=== PATIENT | female | born 2005 | race Two or more races ===

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

== ENCOUNTER 2023-04-22 21:29 | Emergency (ER) | payer OTHER, MEDICAID, SELFPAY ==
--- NOTE | 2023-04-22 | ECG_ITS ---
Test Reason : ANXIETY Blood Pressure : / mmHG Vent. Rate : 100 BPM Atrial Rate : 100 BPM P-R Int : 136 ms QRS Dur : 080 ms QT Int : 340 ms P-R-T Axes : 049 039 042 degrees QTc Int : 438 ms Normal sinus rhythm Normal ECG When compared with ECG of 29-JUN-2022 09:34, Vent. rate has increased BY 38 BPM Referred By: Generic ED Physician Electronically Signed By:FRED GUERRA
[2023-04-22 21:41] VITALS: BP 153/86; PULSE 105; RESP 18; TEMP 37.6; O2SAT 100
--- NOTE | 2023-04-22 22:45 | ED_ITS ---
HPI - Anxiety General Chief Complaint: Anxiety Stated Complaint: Anxiety Time Seen by Provider: 04/22/23 22:45 Source: patient Mode of arrival: ambulatory Limitations: no limitations History of Present Illness HPI narrative: Patient with history of anxiety broke up with her boyfriend yesterday today while going to the bed feels very panicked anxious tearful denies any suicidal ideation depression has history of similar episodes in the past taking fluoxetine Related Data Home Medications Medication Instructions Recorded Confirmed albuterol sulfate 2.5 mg/3 mL 2.5 mg inhalation Q4H PRN 05/17/20 (0.083 %) solution for nebulization albuterol sulfate 90 mcg/actuation 2 puff inhalation Q4-6H PRN 05/17/20 aerosol inhaler (ProAir HFA) montelukast 5 mg chewable tablet 5 mg PO BEDTIME 05/17/20 (Singulair) Previous Rx's Medication Instructions Recorded acetaminophen 325 mg tablet 650 mg (2 x 325 mg) PO Q6H PRN 05/29/20 (Tylenol) fever or pain #14 tabs azithromycin 250 mg tablet See Rx Instructions PO .COMPLEX #6 05/29/20 tabs cyclobenzaprine 5 mg tablet 5 mg PO TID PRN muscle spasm #14 05/29/20 tabs ondansetron 4 mg disintegrating 4 mg PO Q8H PRN nausea and 03/30/22 tablet vomiting #7 tabs Allergies Allergy/AdvReac Type Severity Reaction Status Date / Time ENVIRONMENTAL Allergy Unknown RASH Uncoded 04/22/23 21:41 seasonal Allergy Unknown unknown Uncoded 04/22/23 21:41 Review of Systems Review of Systems: Yes all other systems are reviewed and are negative [facility] Past Medical History Medical History Asthma Social History Social History Alcohol intake: unknown Advance Directives: No Advance Directives Information Provided: Yes Gender identity: Female Physical Exam Vital Signs: Vital Signs: Last Vital Signs Temp 99.6 F 04/22/23 21:41 Pulse 105 H 04/22/23 21:41 Resp 18 04/22/23 21:41 BP 153/86 H 04/22/23 21:41 Pulse Ox 100 04/22/23 21:41 O2 Del Method Room Air 04/22/23 21:41 BMI result Body Mass Index 30.0 Appearance: Alert. Oriented X3. No acute distress. Neck: Normal inspection. Neck supple. CVS: Normal heart rate and rhythm. Pulses normal. Respiratory: No respiratory distress. Equal air entry bilateral, no wheezing/rales/rhonchi Abdomen: Soft and nontender. Bowel sounds are present, psych: Tearful denied any SI Neuro: Oriented X 3. Medications Administered Discontinued Medications Generic Name Dose Route Start Last Admin Trade Name Freq PRN Reason Stop Dose Admin Lorazepam 1 mg 04/22/23 22:52 04/22/23 23:09 Lorazepam 1 Mg Tablet PO 04/22/23 22:53 1 mg ONCE ONE Administration Medical Decision Making Medical Decision Making [facility] Narrative: Patient with acute anxiety has family support will give 1 tablet of Ativan and to follow-up with PCP Discharge Plan Discharge Clinical Impression: Acute anxiety Patient Disposition: Home, Self-Care Instructions: Anxiety (ED) Additional Instructions: Rest at home Continue your medications and follow up with your PCP Prescriptions: No Action azithromycin 250 mg tablet See Rx Instructions .ROUTE .COMPLEX Qty: 6 0RF Rx Instructions: take 500 mg today (day 1), then 250 mg for 4 days (days 2-5) acetaminophen [Tylenol] 325 mg tablet 650 mg PO Q6H PRN (Reason: fever or pain) Qty: 14 0RF cyclobenzaprine 5 mg tablet 5 mg PO TID PRN (Reason: muscle spasm) Qty: 14 0RF ondansetron 4 mg tablet,disintegrating 4 mg PO Q8H PRN (Reason: nausea and vomiting) Qty: 7 0RF Stand Alone Forms: Work/School Release Interventions: ED Discharge Assessment Last Done: 04/22/23 23:13 Discharge Date/Time: 04/22/23 23:13
--- OUTSIDE RECORDS SUMMARY | 2023-04-22 22:49 | XMS_ITS | Continuity of Care Document ---
Author Name Unknown Organization [facility] ter Address [address] [place] [address]- Care Team Providers Care Physician Scribe Name Role Phone Jeramie Sparks MD Primary Care Physicia n Encounter [facility] [place] Date(s): 09/17/19 - 09/17/[address] [address]- [facility] Attending Physician: Jeramie Sparks MD Allergies, Adverse Reactions, Alerts Substance Reaction Severity Status NKA Active Medications Beclomethasone 40 mcg HFA Inhaler Inhalation, 2 times a day, Maintenance, 01/28/13 15:48:49 Start Date: 01/28/13 Status: Ordered ProAir HFA 2 puffs, Inhalation, 4 times a day, 0 Refills, Maintenance Start Date: 01/28/13 Status: Ordered Singulair By Mouth, Daily before dinner, 0 Refills, Maintenance Start Date: 01/28/13 Status: Ordered Problem List Condition Effective Dates Status Health Status Inform ant Asthma(Confirmed) Active Obesity(Confirmed) Active
--- OUTSIDE RECORDS SUMMARY | 2023-04-22 22:49 | XMS_ITS | Continuity of Care Document ---
Author Name Unknown Organization [facility] ter Address [address] [place] [address]- Care Team Providers Care Corporate Financial Analyst Name Role Phone Jeramie Sparks MD Primary Care Physicia n [place] [facility] [place] - 09/18/[address] [address]- [facility] Attending Physician: Jeramie Sparks MD Allergies, Adverse [...]
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
[2023-04-22] MEDS: LORazepam 1 MG TABLET PO (23:09)
--- NOTE | 2023-04-22 23:14 | PC.NURSE ---
pt verbalizes no SI or HI, just feeling super anxious since stopping her Fluoxetine. Pt stopped medication because it was causing her to gain weight.
== END 2023-04-22 23:13 | disposition home or self-care (01) ==
PROVIDERS: Emergency Provider Internal Medicine; PCP Pediatrics
DX: F41.1 Generalized anxiety disorder (principal); F43.0 Acute stress reaction; Z79.899 Other long term (current) drug therapy
CPT/HCPCS: 93005; 99283

== ENCOUNTER 2023-08-10 17:09 | Emergency (ER) | payer OTHER, MEDICAID, SELFPAY ==
[2023-08-10 18:49] VITALS: BP 143/90; PULSE 59; RESP 18; TEMP 36.8; O2SAT 99; BMI 31.6
--- NOTE | 2023-08-10 18:49 | ED_ITS ---
HPI - General Adult General Chief complaint: Upper Respiratory Symptoms Stated complaint: dirrhea, dehydration Time Seen by Provider: 08/10/23 20:17 Source: patient and family (dad) Limitations: no limitations History of Present Illness HPI narrative: 17-year-old female who was a history of asthma, who presents for evaluation of nausea vomiting diarrhea. Patient states that she tested positive for COVID 2 days ago. She was started on Paxil over it. She has been having nausea vomiting and diarrhea during this time. She is however tolerating liquids at this time. She arrives afebrile. No sick contacts. She has been eating and drinking without difficulty prior to this. Patient has otherwise been feeling well. She denies possibility of . Related Data Home Medications Medication Instructions Recorded Confirmed albuterol sulfate 2.5 mg/3 mL 2.5 mg inhalation Q4H PRN 05/17/20 (0.083 %) solution for nebulization albuterol sulfate 90 mcg/actuation 2 puff inhalation Q4-6H PRN 05/17/20 aerosol inhaler (ProAir HFA) montelukast 5 mg chewable tablet 5 mg PO BEDTIME 05/17/20 (Singulair) Previous Rx's Medication Instructions Recorded acetaminophen 325 mg tablet 650 mg (2 x 325 mg) PO Q6H PRN 05/29/20 (Tylenol) fever or pain #14 tabs cyclobenzaprine 5 mg tablet 5 mg PO TID PRN muscle spasm #14 05/29/20 tabs ondansetron 4 mg disintegrating 4 mg PO Q8H PRN nausea and 03/30/22 tablet vomiting #7 tabs loperamide 2 mg capsule 2 mg PO Q6H PRN loose stool #20 08/10/23 (Anti-Diarrheal (loperamide)) caps ondansetron 4 mg disintegrating 4 mg PO Q8H PRN nausea and 08/10/23 tablet vomiting #12 tabs Allergies Allergy/AdvReac Type Severity Reaction Status Date / Time ENVIRONMENTAL Allergy Unknown RASH Uncoded 08/10/23 18:53 seasonal Allergy Unknown unknown Uncoded 08/10/23 18:53 Review of Systems 2 Constitutional: Constitutional: Reports body ache(s) and Reports chills ENT: Reports nasal congestion, Denies sinus pain and Denies sore throat Respiratory: Respiratory: Reports cough Gastrointestinal: Gastrointestinal: Denies constipation, Reports diarrhea, Reports nausea and Reports vomiting Genitourinary: Genitourinary: Denies urinary urgency [facility] Past Medical History Medical History Asthma Social History Social History Alcohol intake: unknown Advance Directives: No Advance Directives Information Provided: No Gender identity: Female Physical Exam ED Vital Signs: Vital Signs - 24 hr 08/10/23 18:49 Temperature 98.2 F Pulse Rate 59 Respiratory Rate 18 Blood Pressure 143/90 H Pulse Oximetry 99 Oxygen Delivery Method Room Air BMI result Body Mass Index 31.6 Const General: alert and awake HENMT Other: Oropharynx is moist. Nares are patent without any discharge. Resp Auscultation: clear to auscultation bilaterally GI Other: Abdomen is soft without tenderness. No CVAT. Extrem Other: No calf tenderness or pedal edema Course Course Course Narrative: This is a rapid medical exam: Additional HPI, ROS, PE not included below will be deferred to primary provider. Patient is a 17-year-old female presenting to the ED with complaint of nausea, vomiting and diarrhea for 2 days. Tested positive for Covid on 08/08 and is currently being treated with Paxlovid. Has been able to tolerate PO fluids today. Reports feeling lightheaded with standing. Plan: swab flu influenza, basic labs, UA, EKG Reevaluation(s) Reevaluation #1: Patient with significant improvement after IV fluids and antiemetics. She feels comfortable with discharge plan home. Reviewed all discharge instructions. No further questions at this time. Time: 21:56 Medications Administered Discontinued Medications Generic Name Dose Route Start Last Admin Trade Name Freq PRN Reason Stop Dose Admin Sodium Chloride 1,000 mls @ 999 mls/hr 08/10/23 20:30 08/10/23 21:05 Ns IV 08/10/23 21:30 999 mls/hr .Q1H1M JONELLE Administration Ondansetron HCl 4 mg 08/10/23 20:25 08/10/23 20:34 Ondansetron Hcl 4 Mg/2 Ml Vial IVPUSH 08/10/23 20:26 4 mg ONCE ONE Administration Medical Decision Making Medical Decision Making MDM Narrative: 17-year-old female who has a history of asthma, recent diagnosis of COVID, currently on Flovent presenting with nausea vomiting and diarrhea. Symptoms mildly improving, tolerating some liquids however still feels weak. IV fluids. Reviewed all labs, no acute process. Differential Diagnosis Differential Diagnoses: The differential diagnosis associated with the presentation includes COVID-19 Medication reaction Dehydration Metabolic abnormality Lab Data MDM Lab Attestation statement: I reviewed the patient's lab results. 08/10/23 19:23 08/10/23 19:23 Labs: Lab Results 08/10/23 Range/Units 19:23 WBC 6.9 (4.8-10.8) X10*3/uL RBC 4.69 (4.20-5.50) X10*6/uL Hgb 12.2 (12.0-16.0) g/dl Hct 38.2 (37.0-47.0) % MCV 81.4 (80.0-98.0) fL MCH 26.0 L (27.0-33.0) pg MCHC 31.9 (31.0-35.0) g/dl RDW 13.6 (11.0-16.0) % Plt Count 204 (160-400) X10*3/uL MPV 11.5 (9.4-12.3) fL Immature Gran % (Auto) 0.3 (0.0-0.4) % Neut % (Auto) 63.9 (45-73) % Lymph % (Auto) 26.1 (20-40) % [place] % (Auto) 8.1 (2-11) % Eos % (Auto) 1.5 (0-4) % Baso % (Auto) 0.1 (0-2) % Lymph # (Auto) 1.8 (1.2-4.9) X10*3/uL [place] # (Auto) 0.6 (0.1-1.2) X10*3/uL Eos # (Auto) 0.1 (0.0-0.4) X10*3/uL Baso # (Auto) 0.0 (0.0-0.2) X10*3/uL Abs Immat Gran (auto) 0.02 (0.00-0.03) X10*3/uL Absolute Neuts (auto) 4.4 (2.0-8.3) x10*3/uL Absolute Nucleated RBC 0.000 (0.0-0.012) X10*3/uL Nucleated RBC % (auto) 0.0 (0.0-0.2) /100WBC Sodium 139 (135-145) mmol/L Potassium 4.0 (3.3-5.1) mmol/L Chloride 105 (96-108) mmol/L Carbon Dioxide 26 (22-29) mmol/L Anion Gap 12 (12-20) BUN 12 (9-16) mg/dL Creatinine 0.76 (0.5-1.4) mg/dL Estim Creat Clear Calc 129.0 Estimated GFR > 60 Random Glucose 99 (60-115) mg/dL Calcium 9.2 (8.4-10.2) mg/dL Total Bilirubin 0.2 (0.0-1.0) mg/dL AST 17 (5-31) U/L ALT 17 (0-31) U/L Alkaline Phosphatase 66 (39-117) U/L Total Protein 7.3 (6.5-8.0) g/dL Albumin 4.2 (3.5-5.0) g/dL Influenza Type A (WILLY) Negative (Negative) Influenza Type B (WILLY) Negative (Negative) Influenza A & B Note See Note Discharge Plan Discharge Clinical Impression: Nausea & vomiting Qualifiers: Vomiting type: unspecified Qualified Code(s): R11.2 - Nausea with vomiting, unspecified Patient Disposition: Home, Self-Care Instructions: Acute Nausea and Vomiting (ED) Additional Instructions: Zofran as directed for nausea. Loperamide as directed for diarrhea. Clear liquids. [place] diet. Gradually advanced. Follow-up with your primary care provider. Call this week to schedule a follow- up appointment. Return to the emergency department if you have any worsening of symptoms, or any concerns. Get well soon! Prescriptions: New ondansetron 4 mg tablet,disintegrating 4 mg PO Q8H PRN (Reason: nausea and vomiting) Qty: 12 0RF loperamide [Anti-Diarrheal (loperamide)] 2 mg capsule 2 mg PO Q6H PRN (Reason: loose stool) Qty: 20 0RF No Action acetaminophen [Tylenol] 325 mg tablet 650 mg PO Q6H PRN (Reason: fever or pain) Qty: 14 0RF cyclobenzaprine 5 mg tablet 5 mg PO TID PRN (Reason: muscle spasm) Qty: 14 0RF ondansetron 4 mg tablet,disintegrating 4 mg PO Q8H PRN (Reason: nausea and vomiting) Qty: 7 0RF Stand Alone Forms: Work/School Release
--- NOTE | 2023-08-10 18:52 | ECG_ITS ---
Test Reason : SOB Blood Pressure : / mmHG Vent. Rate : 060 BPM Atrial Rate : 060 BPM P-R Int : 132 ms QRS Dur : 086 ms QT Int : 402 ms P-R-T Axes : 071 063 038 degrees QTc Int : 402 ms Normal sinus rhythm Normal ECG When compared with ECG of 22-APR-2023 21:47, Vent. rate has decreased BY 40 BPM Referred By: Bernadine Diaz Electronically Signed By:ELDON BERNAL
[2023-08-10 19:27] LABS: MANUAL DIFF FLAG NO
[2023-08-10 19:47] LABS: Alanine Aminotransferase 17 U/L (0-31); Albumin Level 4.2 g/dL (3.5-5.0); Alkaline Phosphatase 66 U/L (39-117); Anion Gap 12 (12-20); Aspartate Amino Transferase 17 U/L (5-31); Basophils Percent Auto 0.1 % (0-2); Bilirubin Total 0.2 mg/dL (0.0-1.0); Blood Urea Nitrogen 12 mg/dL (9-16); Calcium 9.2 mg/dL (8.4-10.2); Carbon Dioxide 26 mmol/L (22-29); Chloride 105 mmol/L (96-108); Eosinophils Absolute Auto 0.1 X10*3/uL (0.0-0.4); Eosinophils Percent Auto 1.5 % (0-4); Estimated Glomerular Filt Rate > 60; Glucose Random 99 mg/dL (60-115); Hematocrit 38.2 % (37.0-47.0); Hemoglobin 12.2 g/dl (12.0-16.0); Imm Gran Abs Auto 0.02 X10*3/uL (0.00-0.03); Imm Gran Pct Auto 0.3 % (0.0-0.4); Lymphocytes Absolute Auto 1.8 X10*3/uL (1.2-4.9); Lymphocytes Percent Auto 26.1 % (20-40); Mean Corpuscular HGB Conc 31.9 g/dl (31.0-35.0); Mean Corpuscular Volume 81.4 fL (80.0-98.0); Mean Platelet Volume 11.5 fL (9.4-12.3); Monocytes Absolute Auto 0.6 X10*3/uL (0.1-1.2); Monocytes Percent Auto 8.1 % (2-11); Neutrophils Absolute Auto 4.4 x10*3/uL (2.0-8.3); Neutrophils Percent Auto 63.9 % (45-73); Platelet Count 204 X10*3/uL (160-400); Red Blood Count 4.69 X10*6/uL (4.20-5.50); Red Cell Distribution Width 13.6 % (11.0-16.0); Sodium 139 mmol/L (135-145); Total Protein 7.3 g/dL (6.5-8.0); White Blood Count 6.9 X10*3/uL (4.8-10.8)
[2023-08-10 19:51] LABS: IDNOW Serial# BCCEAD1C; Influenza A Negative (Negative); Influenza B2 Negative (Negative)
[2023-08-10] MEDS: ondansetron HCL 4 MG/2 ML VIAL IVPUSH (20:34)
[2023-08-10] MEDS: 0.9 % Sodium Chloride 1,000 ML 999 ML IV (21:05)
== END 2023-08-10 22:32 | disposition home or self-care (01) ==
PROVIDERS: Registered Nurse Emergency; Emergency Provider Student in an Organized Health Care Education/Training Program; PCP Pediatrics
DX: R11.2 Nausea with vomiting, unspecified (principal); R19.7 Diarrhea, unspecified
CPT/HCPCS: 80053; 85025; 87502; 93005; 96361; 96374; 99283; 99284; J2405

== ENCOUNTER → 2023-08-10 18:52 | Outpatient (BNV) | payer OTHER, MEDICAID, SELFPAY | PROVIDERS: Emergency Provider Student in an Organized Health Care Education/Training Program; PCP Pediatrics; Visit Provider Internal Medicine | DX: R06.02 Shortness of breath (principal) | CPT/HCPCS: 93010 ==

== ENCOUNTER 2023-11-15 09:48 | Outpatient (AMB) | payer OTHER, MEDICAID, SELFPAY ==
--- NOTE | 2023-11-15 09:49 | A.OFFVIS_ITS ---
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 Present Allergies ENVIRONMENTAL Allergy (Unknown, Uncoded 08/10/23 18:53) RASH seasonal Allergy (Unknown, Uncoded 08/10/23 18:53) unknown Medication List - Last Reconciled 11/15/23 by Virginie Diaz CNM acetaminophen (Tylenol) 650 mg (2 x 325 mg) PO Q6H PRN albuterol sulfate 90 mcg/actuation (ProAir HFA) 2 puffs inhalation Q4-6H PRN albuterol sulfate 2.5 mg inhalation Q4H PRN cyclobenzaprine 5 mg PO TID PRN loperamide (Anti-Diarrheal (loperamide)) 2 mg PO Q6H PRN montelukast (Singulair) 5 mg PO BEDTIME Is last menstrual period known: Yes Last menstrual period: 10/16/23 Do you need a note to return to daycare/school/sports/work: No HPI dysmenorrhea/referral HPI Details Patient is here because she is getting painful cramps with her. But she is always gotten all her life and also she gets painful cramps the few days before. She also had unprotected sex and wants a test and it was done at the beginning and it is negative. According to her jamal she thinks she is supposed to get he period In the next couple of days. Patient is in school at (either [employer] or at [employer]) but plans to transfer to [employer] for nursing. 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 She would not want to get at this time. She usually intends to use condoms and then when after the fact she realizes she has not she is upset with herself and ?over thinks why she did not. Currently she is endeavoring to avoid unsafe situations. Her last unprotected sex was Sunday. [facility] Medical History Asthma Social History (Updated 11/15/23 @ 09:57 by Avel Suggs CMA) Alcohol intake: never Patient Tobacco Use Status: Never used Tobacco Gender identity: Female Female Reproductive History Menstrual Age of Menarche: 11 Duration of menses: 3-5 days Date of last menstrual period: 10/16/23 control method: none Total pregnancies: 0 Full term: 0 History of abnormal pap smear: No (no previous pap) Physical Exam Vital Signs: Last Vital Signs BP 138/80 11/15/23 09:53 BMI result Body Mass Index 35.4 Other: Normal external exam. Vagina pink and moist cervix is nulliparous pink with fairly normal appearing scant discharge cervix is closed uterus is small anteverted mobile nontender patient has good tone with Kegel. External Female Exam: normal external appearance Speculum Exam - Vagina: normal appearance of the vagina and normal vaginal discharge Speculum Exam - Cervix: normal appearance of the cervix Bimanual exam- vagina & uterus: normal bimanual exam, uterine size normal, consistency normal, uterine mobility normal, uterine shape normal and non-tender Bimanual Exam- Adnexa, other: normal adnexae, no masses and No adnexal tenderness Results AMB Test Urine AMB Test Urine Negative Last Edit by Avel Suggs CMA on 11/15/23 10:19 Results Reviewed Results Reviewed: Laboratory Last Values [facility] Negative 11/15/23 10:18 Assessment & Plan Assessment & Plan (1) Dysmenorrhea: Code(s): N94.6 - Dysmenorrhea, unspecified (2) Vaginal discharge: Code(s): N89.8 - Other specified noninflammatory disorders of vagina (3) control counseling: Code(s): Z30.09 - Encounter for other general counseling and advice on contraception (4) Health education/counseling: Code(s): Z71.9 - Counseling, unspecified Plan Patient is here because she is getting painful cramps with her. But she is always gotten all her life and also she gets painful cramps the few days before. She also had unprotected sex and wants a test and it was done at the beginning and it is negative. According to her jamal she thinks she is supposed to get he period In the next couple of days. Patient is in school at (either [employer] or at [employer]) but plans to transfer to [employer] for nursing. 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 She would not want to get at this time. She usually intends to use condoms and then when after the fact she realizes she has not she is upset with herself and ?over thinks why she did not. Currently she is endeavoring to avoid unsafe situations. Her last unprotected sex was Sunday. Full teaching was done about what her options are pre and post exam during the exam testing was done for gonorrhea chlamydia trichomoniasis Gardnerella and Amara. I also showed the patient her cervix which appeared normal and healthy in nulliparous. Bimanual exam was unremarkable. Full teaching about all available methods of control was done but emphasizing safer sex and what she will do if she does not get her. When she expects I recommend she repeat test periodically until her period comes I offered her in particular control pills patches NuvaRing Depo- Provera or Nexplanon or Kyleena IUD all of which would need to be started at the beginning of her. If she were to start pills or their analogs I would recommend she start them and day 2 or 3 of her period The latest. -I reviewed with the patient, all of the currently common used methods of control that are available. We reviewed how they work in the body, how they are taken, common side effects, uncommon side effects, precautions, and contraindications. -Discussed also factors that influence their effectiveness and use, and womens satisfaction with the method. -Discussed how each are used, and drawbacks of each method as well. -Methods covered included: condoms, control pills, control patches, control rings, Depo-Provera, Nexplanon, Mirena and Kyleena IUDs, and ParaGard IUDs. All of the above methods were covered in great detail including their side effect profiles and common experiences that women have and ways to mitigate against the negative experiences including attention to diet and exercise patient's with bleeding challenges that may occur her and efforts to time the initiation of the method to this start of the menstrual period. Also discussed with the patient what she would do if she gets and who she would trust and talk to. For now the patient decided to leave armed with the information and she is going to continue to use ibuprofen and use it as she needs it for her dysmenorrhea and also maybe consider heating pads as well. We can see her again p.r.n. 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 She declined blood work for STIs. She was given information about the portal so she can sign up for. Orders: Orders CT NG by PCR Today Z01.419 - Encounter for gynecological examination (general) (routine) without abnormal findings Bacterial Vaginosis Panel Today Z20.2 - Contact with and (suspected) exposure to infections with a predominantly sexual mode of transmission AMB HCG Urine Test Today Z32.02 - Encounter for test, result negative Coding Level of Care Code New Pt Level 3 (84630) Diagnoses Dysmenorrhea N94.6 Vaginal discharge N89.8 control counseling Z30.09 Health education/counseling Z71.9
[2023-11-15 09:53] VITALS: BP 138/80; BMI 35.4
== END 2023-11-15 10:55 | disposition home or self-care (01) ==
LOC: HO.HWSM 09:48
PROVIDERS: PCP Pediatrics; Visit Provider Advanced Practice Midwife
DX: N94.6 Dysmenorrhea, unspecified (principal); N89.8 Other specified noninflammatory disorders of vagina; Z30.09 Encounter for other general counseling and advice on contraception; Z71.9 Counseling, unspecified; Z32.02 Encounter for pregnancy test, result negative
CPT/HCPCS: 99203

== ENCOUNTER 2023-11-15 09:48 | Outpatient (REF) | payer OTHER, SELFPAY ==
[2023-11-16 12:16] LABS: CT PCR NOT DETECTED (Not Detect.); NG PCR NOT DETECTED (Not Detect.)
[2023-11-16 14:00] LABS: BV Int Neg Control Negative (Negative); BV Int Pos Control Positive (Positive)
== END 2023-11-15 09:49 | disposition home or self-care (01) ==
LOC: HO.LAB 09:48
PROVIDERS: PCP Pediatrics; Visit Provider Advanced Practice Midwife
DX: Z30.09 Encounter for other general counseling and advice on contraception (principal); N94.6 Dysmenorrhea, unspecified; N89.8 Other specified noninflammatory disorders of vagina; Z20.2 Contact with and (suspected) exposure to infections with a predominantly sexual mode of transmission
CPT/HCPCS: 0353U; 81025; 87480; 87510; 87660

== ENCOUNTER 2024-03-16 19:16 | Emergency (ER) | payer OTHER, SELFPAY ==
--- NOTE | ~2024-03-16 | CT_ITS ---
EXAMINATION: CT ABDOMEN AND PELVIS WITHOUT CONTRAST CLINICAL INFORMATION: Left flank pain COMPARISON: KUB of 11/02/2018 abdominal ultrasound of 12/26/2016 TECHNIQUE: Multidetector volumetric imaging was performed from the superior aspect of the liver through the pubic symphysis. Sagittal and coronal reformatted images were obtained on the technologist's workstation. This CT examination was performed using dose optimization techniques as appropriate, variously including the following: *Automated exposure control *Adjustment of mA and/or kV according to patient size (this includes techniques or standardized protocols for targeted exams where dose is matched to indication/reason for exam; i.e. extremities or head) *Use of iterative reconstruction technique DLP: 870 mGy-cm FINDINGS: LUNG BASES: The visualized lung bases are unremarkable. LIVER, GALLBLADDER, AND BILIARY TREE: The liver is normal in size, shape, and attenuation. No focal hepatic lesion or biliary ductal dilatation is present. The gallbladder is unremarkable with no evidence of radiopaque gallstones, gallbladder wall thickening, or obvious pericholecystic inflammatory changes. PANCREAS: Unremarkable. SPLEEN: Unremarkable. ADRENAL GLANDS: Unremarkable. KIDNEYS AND URETERS: The kidneys are normal in size, shape, and attenuation. No hydronephrosis, hydroureter, or calculi seen. No perinephric stranding. BLADDER: Underdistended and therefore not optimally evaluated. No radiopaque calculi. GASTROINTESTINAL TRACT: The stomach is partially distended and grossly unremarkable. No abnormal small bowel dilatation. Colon is normal in caliber. No evidence of colonic wall thickening or pericolonic fat stranding. The appendix is slightly plump in appearance however grossly unremarkable. Moderate stool burden in the colon. PERITONEAL CAVITY: No evidence of free intraperitoneal air or fluid. ABDOMINAL WALL: No significant hernia is appreciated. LYMPH NODES: No evidence of pathologically enlarged lymph nodes. VASCULAR: The aortoiliac vessels are normal in caliber. PELVIC VISCERA: The uterus is deviated to the right. Unremarkable CT appearance of the uterus and ovaries/adnexa. OSSEOUS STRUCTURES: Unremarkable. CT/CT abdomen pelvis wo IV con IMPRESSION: No acute abnormality. No evidence of radiopaque urinary tract calculi, hydroureteronephrosis or perinephric stranding. Moderate stool burden in the colon. Fleischner guidelines were followed.
[2024-03-16 20:22] VITALS: BP 138/75; PULSE 65; RESP 18; TEMP 37.2; O2SAT 99; BMI 37.2
--- NOTE | 2024-03-16 20:29 | ED_ITS ---
HPI - General Adult General Chief complaint: Abdominal Pain Stated complaint: R side pain, worse after eating, lightheaded Time Seen by Provider: 03/16/24 22:21 Related Data Home Medications ?Medication ?Instructions ?Recorded ?Confirmed albuterol sulfate 2.5 mg/3 mL 2.5 mg inhalation Q4H PRN 05/17/20 11/15/23 (0.083 %) solution for nebulization albuterol sulfate 90 mcg/actuation 2 puff inhalation Q4-6H PRN 05/17/20 11/15/23 aerosol inhaler (ProAir HFA) montelukast 5 mg chewable tablet 5 mg PO BEDTIME 05/17/20 11/15/23 (Singulair) Previous Rx's ?Medication ?Instructions ?Recorded acetaminophen 325 mg tablet 650 mg (2 x 325 mg) PO Q6H PRN 05/29/20 (Tylenol) fever or pain #14 tabs cyclobenzaprine 5 mg tablet 5 mg PO TID PRN muscle spasm #14 05/29/20 tabs loperamide 2 mg capsule 2 mg PO Q6H PRN loose stool #20 08/10/23 (Anti-Diarrheal (loperamide)) caps miconazole nitrate 2 % vaginal 1 appful vaginal BEDTIME 7 days 11/19/23 cream (Monistat 7) #45 grams pantoprazole 40 mg tablet,delayed 40 mg PO DAILY #14 tabs 03/17/24 release (Protonix) Allergies Allergy/AdvReac Type Severity Reaction Status Date / Time ENVIRONMENTAL Allergy Unknown RASH Uncoded 03/16/24 20:26 seasonal Allergy Unknown unknown Uncoded 08/10/23 18:53 [facility] Past Medical History Medical History Asthma Social History Social History Alcohol intake: never Patient Tobacco Use Status: Never used Tobacco Advance Directives: No Advance Directives Information Provided: No Do you have a plan to hurt others: No Plan Gender identity: Female Physical Exam ED Vital Signs: Vital Signs - 24 hr 03/16/24 20:22 03/16/24 21:17 Temperature 99 F 98.9 F Pulse Rate 65 51 Respiratory Rate 18 16 Blood Pressure 138/75 125/64 Pulse Oximetry 99 98 Oxygen Delivery Method Room Air Room Air BMI result Body Mass Index 37.2 Course Course Course Narrative: RME: Done by GRAYSON Cruz. 18 yold female presents to the Ed for epigastric and lUQ abdominal pain. Patient states every time she eats she has acid burning sensation. Patient denies any right upper quadrant pain or lower abdominal pain. Patient denies any dysuria, hematuria, fever, chills, flank pain. Exam positive for epigastric and left upper quadrant tenderness on palpation. Labs ordered. Medications Administered Discontinued Medications Generic Name Dose Route Start Last Admin Trade Name Freq PRN Reason Stop Dose Admin Sodium Chloride 1,000 mls @ 999 mls/hr 03/16/24 22:45 03/17/24 00:24 Ns IV 03/16/24 23:45 Infused .Q1H1M JONELLE Infusion Ketorolac Tromethamine 30 mg 03/16/24 22:40 03/16/24 23:28 Ketorolac Tromethamine 30 Mg/Ml Vial IVPUSH 03/16/24 22:41 30 mg ONCE ONE Administration Medical Decision Making Lab Data 03/16/24 21:00 03/16/24 21:00 Labs: Lab Results 03/16/24 03/16/24 Range/Units 21:00 21:16 WBC 7.3 (4.8-10.8) X10*3/uL RBC 4.48 (4.20-5.50) X10*6/uL Hgb 11.6 L (12.0-16.0) g/dl Hct 35.7 L (37.0-47.0) % MCV 79.7 L (80.0-98.0) fL MCH 25.9 L (27.0-33.0) pg MCHC 32.5 (31.0-35.0) g/dl RDW 14.4 (11.0-16.0) % Plt Count 209 (160-400) X10*3/uL MPV 12.1 (9.4-12.3) fL Immature Gran % (Auto) 0.1 (0.0-0.4) % Neut % (Auto) 56.7 (45-73) % Lymph % (Auto) 31.5 (20-40) % [place] % (Auto) 9.2 (2-11) % Eos % (Auto) 2.1 (0-4) % Baso % (Auto) 0.4 (0-2) % Lymph # (Auto) 2.3 (1.2-4.9) X10*3/uL [place] # (Auto) 0.7 (0.1-1.2) X10*3/uL Eos # (Auto) 0.2 (0.0-0.4) X10*3/uL Baso # (Auto) 0.0 (0.0-0.2) X10*3/uL Abs Immat Gran (auto) 0.01 (0.00-0.03) X10*3/uL Absolute Neuts (auto) 4.1 (2.0-8.3) x10*3/uL Absolute Nucleated RBC 0.000 (0.0-0.012) X10*3/uL Nucleated RBC % (auto) 0.0 (0.0-0.2) /100WBC Sodium 141 (135-145) mmol/L Potassium 3.7 (3.3-5.1) mmol/L Chloride 108 (96-108) mmol/L Carbon Dioxide 23 (22-29) mmol/L Anion Gap 14 (12-20) BUN 13 (9-16) mg/dL Creatinine 0.84 (0.5-1.4) mg/dL Estim Creat Clear Calc 126.1 Estimated GFR > 60 Random Glucose 135 H (60-115) mg/dL Calcium 9.1 (8.4-10.2) mg/dL Total Bilirubin 0.3 (0.0-1.0) mg/dL AST 17 (5-31) U/L ALT 12 (0-31) U/L Alkaline Phosphatase 63 (39-117) U/L Total Protein 7.3 (6.5-8.0) g/dL Albumin 4.1 (3.5-5.0) g/dL Lipase 23 (8-78) U/L Beta HCG, Quant < 2 mIU/mL Urine Color Yellow Urine Appearance Clear Urine pH 6.0 (5.0-9.0) Ur Specific Hensley >= 1.030 H (1.005-1.025) Urine Protein Trace (Neg-Trace) mg/dL Urine Glucose (UA) Negative (Negative) mg/dL Urine Ketones Trace (Negative) mg/dL Urine Blood Large (3+) H (Negative) Urine Nitrite Negative (Negative) Ur Leukocyte Esterase Small (1+) H (Negative) Urine RBC 0-2 (0-2) /HPF Urine WBC 6-10 H (0-5) /HPF Ur Squamous Epith Cells 6-10 (0-2) /HPF Urine Bacteria 1+ (None Seen) Hyaline Casts 0-2 (0-2) /LPF Urine Test NEGATIVE (NEGATIVE) Discharge Plan Discharge Clinical Impression: Abdominal pain Patient Disposition: Home, Self-Care Instructions: Abdominal Pain (ED) Prescriptions: New pantoprazole [Protonix] 40 mg tablet,delayed release (DR/EC) 40 mg PO DAILY Qty: 14 0RF No Action miconazole nitrate [Monistat 7] 2 % cream 1 appful vaginal BEDTIME 7 Days Qty: 45 0RF acetaminophen [Tylenol] 325 mg tablet 650 mg PO Q6H PRN (Reason: fever or pain) Qty: 14 0RF cyclobenzaprine 5 mg tablet 5 mg PO TID PRN (Reason: muscle spasm) Qty: 14 0RF loperamide [Anti-Diarrheal (loperamide)] 2 mg capsule 2 mg PO Q6H PRN (Reason: loose stool) Qty: 20 0RF albuterol sulfate 2.5 mg /3 mL (0.083 %) solution for nebulization 2.5 mg inhalation Q4H PRN albuterol sulfate [ProAir HFA] 90 mcg/actuation HFA aerosol inhaler 2 puff inhalation Q4-6H PRN montelukast [Singulair] 5 mg tablet,chewable 5 mg PO BEDTIME Referrals: Susi Fuentes MD [Primary Care Provider] - 03/19/24 Print Language: Belgian
[2024-03-16 21:05] LABS: MANUAL DIFF FLAG NO
[2024-03-16 21:12] LABS: Basophils Percent Auto 0.4 % (0-2); Eosinophils Absolute Auto 0.2 X10*3/uL (0.0-0.4); Eosinophils Percent Auto 2.1 % (0-4); Hematocrit 35.7 % (37.0-47.0); Hemoglobin 11.6 g/dl (12.0-16.0); Imm Gran Abs Auto 0.01 X10*3/uL (0.00-0.03); Imm Gran Pct Auto 0.1 % (0.0-0.4); Lymphocytes Absolute Auto 2.3 X10*3/uL (1.2-4.9); Lymphocytes Percent Auto 31.5 % (20-40); Mean Corpuscular HGB Conc 32.5 g/dl (31.0-35.0); Mean Corpuscular Hemoglobin 25.9 pg (27.0-33.0); Mean Corpuscular Volume 79.7 fL (80.0-98.0); Mean Platelet Volume 12.1 fL (9.4-12.3); Monocytes Absolute Auto 0.7 X10*3/uL (0.1-1.2); Monocytes Percent Auto 9.2 % (2-11); Neutrophils Absolute Auto 4.1 x10*3/uL (2.0-8.3); Neutrophils Percent Auto 56.7 % (45-73); Platelet Count 209 X10*3/uL (160-400); Red Blood Count 4.48 X10*6/uL (4.20-5.50); Red Cell Distribution Width 14.4 % (11.0-16.0); White Blood Count 7.3 X10*3/uL (4.8-10.8)
[2024-03-16 21:17] VITALS: BP 125/64; PULSE 51; RESP 16; TEMP 37.2; O2SAT 98
--- OUTSIDE RECORDS SUMMARY | 2024-03-16 21:34 | XMS_ITS | Continuity of Care Document ---
Author Organization [facility] ter Address [address] [place] [id number]- Care Team Providers Care Patron Attendant Name Role Phone Rounds Susi MATOS Primary Care Physician [phone] Encounter [facility] [place] Date(s): 08/10/23 - 08/10/[address] [address]- Discharge Disposition: A-D/C Walkout Attending Physician: Not on Staff, Attending MD Admitting Physician: Not on Staff, Admitting MD Referring Physician: Not on Staff, Referring [...] Date: 01/28/13 Status: Ordered Problem List Condition Confirmation Course Effective Dates Status Health St atus Informant Asthma Confirmed Active Obesity Confirmed Active Vital Signs Most recent to oldest [Reference Range]: 1 2 Weight 90.6 kg (08/10/23 3:37 PM) Oxygen Saturation [94-100 %] 99 % (08/10/23 3:37 PM) 98 % (08/10/23 3:37 PM) Pulse Rate [55-90 bpm] 76 bpm (08/10/23 3:37 PM) 95 bpm *H* (08/10/23 3:37 PM) Blood Pressure [90-138/55-84 mm Hg] 129/ 64mm Hg (08/10/23 3:37 PM) Respiratory Rate [16-30 br/min] 15 br/mi n *L* (12/29/23 3:37 PM) Temperature [96.8-100.4 DegF] 98.5 DegF (08/10/23 3:37 PM) Mode of Delivery (Oxygen) Room air (08/10/23 3:37 PM) Room air (08/10/23 3:37 PM) Blood pressure sites Arm, right (08/10/23 3:37 PM) Temperature Route Oral (08/10/23 3:37 PM) Dry Weight 90.6 kg (08/10/23 3:37 PM) Weight Obtained Via Standing scale (08/10/23 3:37 PM) Dry Weight Obtained Via Standing scale (08/10/23 3:37 PM) Weight Percentile Per Age 97.36 % 1 (08/10/23 3:37 PM) Weight ZScore 1.94 2 (08/10/23 3:37 PM) 1Result Comment: ^~:!Percentile Source -CDC/WHO 2Result Comment: ^~:!ZScore Source -CDC/WHO Patient Care team information Care Team Personnel Name: Susi Fuentes MD Position: [facility] General Pediatrics MD Member Role: PCP Address: Address: [address] [place] [address] [place] [address]- [place] Care Team Related Persons Name: TAYO TIMMONS Address: home [address] [address] Name: VALERIE MEADE Address: [address] [place] [address] Name: KIESHA AGUILAR Address: [address] [place] [address]
[2024-03-16 21:39] LABS: Alanine Aminotransferase 12 U/L (0-31); Albumin Level 4.1 g/dL (3.5-5.0); Alkaline Phosphatase 63 U/L (39-117); Anion Gap 14 (12-20); Aspartate Amino Transferase 17 U/L (5-31); Bilirubin Total 0.3 mg/dL (0.0-1.0); Blood Urea Nitrogen 13 mg/dL (9-16); Calcium 9.1 mg/dL (8.4-10.2); Carbon Dioxide 23 mmol/L (22-29); Chloride 108 mmol/L (96-108); Creatinine Clr Calc Pharmacy 126.1; Estimated Glomerular Filt Rate > 60; Glucose Random 135 mg/dL (60-115); HCG Quantitative < 2 mIU/mL; Lipase 23 U/L (8-78); Potassium 3.7 mmol/L (3.3-5.1); Sodium 141 mmol/L (135-145); Total Protein 7.3 g/dL (6.5-8.0)
[2024-03-16 21:39] LABS: Appearance Urine Clear; Color Urine Yellow; Glucose Urine UA Negative (Negative); Leukocyte Esterase Urine Small (1+) (Negative); Nitrite Urine Negative (Negative); Specific Gravity - Urine >= 1.030 (1.005-1.025); UMIC TRIGGER UACC YES; Urine Blood Large (3+) (Negative); Urine Ketones Trace mg/dL (Negative); Urine Protein Trace mg/dL (Neg-Trace)
[2024-03-16 21:42] LABS: UPreg QC Valid YES; Urine Pregnancy NEGATIVE (NEGATIVE)
[2024-03-16 22:09] LABS: Bacteria Urine 1+ (None Seen); Hyaline Casts Urine 0-2 /LPF (0-2); RBC Urine 0-2 /HPF (0-2); UACC Culture Trigger YES
[2024-03-16] MEDS: 0.9 % Sodium Chloride 1,000 ML 999 ML IV (23:28)
[2024-03-16] MEDS: Ketorolac Tromethamine 30 MG/ML VIAL IVPUSH (23:28)
--- NOTE | 2024-03-17 00:53 | ED_ITS ---
HPI - Abdominal Pain General Chief Complaint: Abdominal Pain Stated Complaint: R side pain, worse after eating, lightheaded Time Seen by Provider: 03/16/24 22:21 History of Present Illness HPI narrative: Patient is a 18-year-old female presents today with having left upper abdominal pain. Generalized malaise. Kind of wraps to the back. There is no fever no chills. There was no coughing or congestion upper respiratory symptoms. No diaphoresis. No history leg swelling. No history of blood clots. No coughing or congestion. Feels somewhat of a burning sensation. No change in bowel movement. No nausea no vomiting. Unable to sleep well because of the pain Related Data Home Medications ?Medication ?Instructions ?Recorded ?Confirmed albuterol sulfate 2.5 mg/3 mL 2.5 mg inhalation Q4H PRN 05/17/20 11/15/23 (0.083 %) solution for nebulization albuterol sulfate 90 mcg/actuation 2 puff inhalation Q4-6H PRN 05/17/20 11/15/23 aerosol inhaler (ProAir HFA) montelukast 5 mg chewable tablet 5 mg PO BEDTIME 05/17/20 11/15/23 (Singulair) Previous Rx's ?Medication ?Instructions ?Recorded acetaminophen 325 mg tablet 650 mg (2 x 325 mg) PO Q6H PRN 05/29/20 (Tylenol) fever or pain #14 tabs cyclobenzaprine 5 mg tablet 5 mg PO TID PRN muscle spasm #14 05/29/20 tabs loperamide 2 mg capsule 2 mg PO Q6H PRN loose stool #20 08/10/23 (Anti-Diarrheal (loperamide)) caps miconazole nitrate 2 % vaginal 1 appful vaginal BEDTIME 7 days 11/19/23 cream (Monistat 7) #45 grams pantoprazole 40 mg tablet,delayed 40 mg PO DAILY #14 tabs 03/17/24 release (Protonix) Allergies Allergy/AdvReac Type Severity Reaction Status Date / Time ENVIRONMENTAL Allergy Unknown RASH Uncoded 03/16/24 20:26 seasonal Allergy Unknown unknown Uncoded 08/10/23 18:53 Review of Systems Review of Systems Positive left upper quadrant pain Yes all other systems are reviewed and are negative PMFSH Past Medical History Attestation statement: The following information was validated with the patient. Medical History Asthma Social History Social History Alcohol intake: never Patient Tobacco Use Status: Never used Tobacco Advance Directives: No Advance Directives Information Provided: No Do you have a plan to hurt others: No Plan Gender identity: Female Physical Exam ED Vital Signs: Vital Signs - 24 hr 03/16/24 20:22 03/16/24 21:17 Temperature 99 F 98.9 F Pulse Rate 65 51 Respiratory Rate 18 16 Blood Pressure 138/75 125/64 Pulse Oximetry 99 98 Oxygen Delivery Method Room Air Room Air BMI result Body Mass Index 37.2 Appearance: Alert. Oriented X3. No acute distress. Eyes: Pupils equal, round and reactive to light. ENT: Pharynx normal. Neck: Normal inspection. Neck supple. No lymph nodes noted. No crepitus CVS: Normal heart rate and rhythm. Pulses normal. Normal S1 and S2 Respiratory: No respiratory distress. Breath sounds normal. No Wheezing. No rales Abdomen: Soft and nontender. No rigidity. No distention. good BS x4 Skin: Skin warm and dry. Normal skin color. Normal skin turgor. Extremities: No lower extremity edema. Neurovascular intact to all extremities. No Lacerations. No Rash Neuro: Oriented X 3. No motor deficit. No sensory deficit. Moving all extermities. No slurred speech Medical Decision Making Medical Decision Making MDM Narrative: Left upper quadrant abdominal pain. Patient's test was negative no related issue. Her white count was normal. Patient is electrolyte was normal. LFTs are normal no evidence for biliary disease. Lipase is normal no evidence for pancreatitis urine was negative for any gross infection. CT scan of the abdomen pelvis showed no acute evidence of kidney stone no diverticulitis no obstruction or abscess. Will discharge patient home close follow-up on an outpatient basis question gastritis will start patient on a PPI Differential Diagnosis Differential Diagnoses: The differential diagnosis associated with the presentation includes Gastritis, kidney stone, diverticulitis, obstruction, pneumonia Admission/Observation Consideration of admission/observation: Escalation of care including admission/observation considered Lab Data [facility] Lab Attestation statement: I reviewed the patient's lab results. 03/16/24 21:00 03/16/24 21:00 Labs: Lab Results 03/16/24 03/16/24 Range/Units 21:00 21:16 WBC 7.3 (4.8-10.8) X10*3/uL RBC 4.48 (4.20-5.50) X10*6/uL Hgb 11.6 L (12.0-16.0) g/dl Hct 35.7 L (37.0-47.0) % MCV 79.7 L (80.0-98.0) fL MCH 25.9 L (27.0-33.0) pg MCHC 32.5 (31.0-35.0) g/dl RDW 14.4 (11.0-16.0) % Plt Count 209 (160-400) X10*3/uL MPV 12.1 (9.4-12.3) fL Immature Gran % (Auto) 0.1 (0.0-0.4) % Neut % (Auto) 56.7 (45-73) % Lymph % (Auto) 31.5 (20-40) % [place] % (Auto) 9.2 (2-11) % Eos % (Auto) 2.1 (0-4) % Baso % (Auto) 0.4 (0-2) % Lymph # (Auto) 2.3 (1.2-4.9) X10*3/uL [place] # (Auto) 0.7 (0.1-1.2) X10*3/uL Eos # (Auto) 0.2 (0.0-0.4) X10*3/uL Baso # (Auto) 0.0 (0.0-0.2) X10*3/uL Abs Immat Gran (auto) 0.01 (0.00-0.03) X10*3/uL Absolute Neuts (auto) 4.1 (2.0-8.3) x10*3/uL Absolute Nucleated RBC 0.000 (0.0-0.012) X10*3/uL Nucleated RBC % (auto) 0.0 (0.0-0.2) /100WBC Sodium 141 (135-145) mmol/L Potassium 3.7 (3.3-5.1) mmol/L Chloride 108 (96-108) mmol/L Carbon Dioxide 23 (22-29) mmol/L Anion Gap 14 (12-20) BUN 13 (9-16) mg/dL Creatinine 0.84 (0.5-1.4) mg/dL Estim Creat Clear Calc 126.1 Estimated GFR > 60 Random Glucose 135 H (60-115) mg/dL Calcium 9.1 (8.4-10.2) mg/dL Total Bilirubin 0.3 (0.0-1.0) mg/dL AST 17 (5-31) U/L ALT 12 (0-31) U/L Alkaline Phosphatase 63 (39-117) U/L Total Protein 7.3 (6.5-8.0) g/dL Albumin 4.1 (3.5-5.0) g/dL Lipase 23 (8-78) U/L Beta HCG, Quant < 2 mIU/mL Urine Color Yellow Urine Appearance Clear Urine pH 6.0 (5.0-9.0) Ur Specific [place] >= 1.030 H (1.005-1.025) Urine Protein Trace (Neg-Trace) mg/dL Urine Glucose (UA) Negative (Negative) mg/dL Urine Ketones Trace (Negative) mg/dL Urine Blood Large (3+) H (Negative) Urine Nitrite Negative (Negative) Ur Leukocyte Esterase Small (1+) H (Negative) Urine RBC 0-2 (0-2) /HPF Urine WBC 6-10 H (0-5) /HPF Ur Squamous Epith Cells 6-10 (0-2) /HPF Urine Bacteria 1+ (None Seen) Hyaline Casts 0-2 (0-2) /LPF Urine Test NEGATIVE (NEGATIVE) Independent Interpretation I performed an independent interpretation of an: CT Scan (No acute finding) Radiology Impression Discussion of test interpretation with radiology: I have reviewed the radiologist's reading. Medications Administered Discontinued Medications Generic Name Dose Route Start Last Admin Trade Name Freq PRN Reason Stop Dose Admin Sodium Chloride 1,000 mls @ 999 mls/hr 03/16/24 22:45 03/17/24 00:24 Ns IV 03/16/24 23:45 Infused .Q1H1M JONELLE Infusion Ketorolac Tromethamine 30 mg 03/16/24 22:40 03/16/24 23:28 Ketorolac Tromethamine 30 Mg/Ml Vial IVPUSH 03/16/24 22:41 30 mg ONCE ONE Administration Discharge Plan Discharge Clinical Impression: Abdominal pain Patient Disposition: Home, Self-Care Instructions: Abdominal Pain (ED) Prescriptions: New pantoprazole [Protonix] 40 mg tablet,delayed release (DR/EC) 40 mg PO DAILY Qty: 14 0RF No Action miconazole nitrate [Monistat 7] 2 % cream 1 appful vaginal BEDTIME 7 Days Qty: 45 0RF acetaminophen [Tylenol] 325 mg tablet 650 mg PO Q6H PRN (Reason: fever or pain) Qty: 14 0RF cyclobenzaprine 5 mg tablet 5 mg PO TID PRN (Reason: muscle spasm) Qty: 14 0RF loperamide [Anti-Diarrheal (loperamide)] 2 mg capsule 2 mg PO Q6H PRN (Reason: loose stool) Qty: 20 0RF albuterol sulfate 2.5 mg /3 mL (0.083 %) solution for nebulization 2.5 mg inhalation Q4H PRN albuterol sulfate [ProAir HFA] 90 mcg/actuation HFA aerosol inhaler 2 puff inhalation Q4-6H PRN montelukast [Singulair] 5 mg tablet,chewable 5 mg PO BEDTIME Referrals: Susi Fuentes MD [Primary Care Provider] - 03/19/24 Print Language: Citizen [place]
[2024-03-17 01:00] VITALS: BP 140/81; PULSE 65; RESP 16; TEMP 36.9; O2SAT 99
[2024-03-17 01:10] VITALS: BP 140/81; PULSE 65; RESP 16; TEMP 36.9; O2SAT 99
== END 2024-03-17 01:10 | disposition home or self-care (01) ==
PROVIDERS: Physician Assistant; Emergency Provider Emergency Medicine Emergency Medical Services; PCP Pediatrics
DX: R10.31 Right lower quadrant pain (principal); R42 Dizziness and giddiness; R10.13 Epigastric pain; R10.2 Pelvic and perineal pain; Z79.899 Other long term (current) drug therapy
CPT/HCPCS: 36415; 74176; 80053; 81001; 81025; 83690; 84702; 85025; 87086; 96360; 96374; 99284; 99285; J1885

== ENCOUNTER 2024-07-26 22:52 | Emergency (ER) | payer OTHER, SELFPAY ==
--- NOTE | ~2024-07-26 | XR_ITS ---
EXAMINATION: XR CHEST CLINICAL INFORMATION: Cough and shortness of breath; question pneumonia. COMPARISON: None available. TECHNIQUE: Frontal view of the chest was obtained. FINDINGS: No significant abnormality is noted involving the heart, lungs, mediastinum, bony thorax or soft tissues. XR/XR chest 1V IMPRESSION: Unremarkable examination. Electronically signed by: Alexi Roa MD 07/27/2024 12:07 AM [facility]
[2024-07-26 22:58] VITALS: BP 129/86; PULSE 76; RESP 16; TEMP 36.9; O2SAT 100; BMI 37.3
[2024-07-27 00:06] LABS: Influenza A PCR NEGATIVE (Negative); Influenza B PCR NEGATIVE (Negative); Resp Syncy Virus RNA Qual PCR NEGATIVE (Negative); SARS COV2 PCR INHOUSE NEGATIVE (Negative)
--- NOTE | 2024-07-27 00:18 | ED.URI ---
HPI - URI/Sore Throat General Chief Complaint: Upper Respiratory Symptoms Stated Complaint: cough/lungs feel heavy/headache Time Seen by Provider: 07/27/24 00:09 Source: patient and family Mode of arrival: ambulatory Limitations: no limitations History of Present Illness ED Provider: DR. Valdez HPI Narrative: 18-year-old female history of bronchial asthma has upper respiratory symptoms for the past week presented with nonproductive coughing, shortness of breath, and wheezing. No sick contacts, no fever, no chills. Related Data Home Medications ?Medication ?Instructions ?Recorded ?Confirmed albuterol sulfate 2.5 mg/3 mL 2.5 mg inhalation Q4H PRN 05/17/20 11/15/23 (0.083 %) solution for nebulization albuterol sulfate 90 mcg/actuation 2 puff inhalation Q4-6H PRN 05/17/20 11/15/23 aerosol inhaler (ProAir HFA) montelukast 5 mg chewable tablet 5 mg PO BEDTIME 05/17/20 11/15/23 (Singulair) Previous Rx's ?Medication ?Instructions ?Recorded acetaminophen 325 mg tablet 650 mg (2 x 325 mg) PO Q6H PRN 05/29/20 (Tylenol) fever or pain #14 tabs cyclobenzaprine 5 mg tablet 5 mg PO TID PRN muscle spasm #14 05/29/20 tabs loperamide 2 mg capsule 2 mg PO Q6H PRN loose stool #20 08/10/23 (Anti-Diarrheal (loperamide)) caps miconazole nitrate 2 % vaginal 1 appful vaginal BEDTIME 7 days 11/19/23 cream (Monistat 7) #45 grams pantoprazole 40 mg tablet,delayed 40 mg PO DAILY #14 tabs 03/17/24 release (Protonix) albuterol sulfate 90 mcg/actuation 2 puff inhalation Q4-6H PRN 07/27/24 aerosol inhaler shortness of breath or wheezing #8.5 grams azithromycin 250 mg tablet See Rx Instructions PO .COMPLEX #6 07/27/24 (Zithromax Z-Gilbert) tabs guaifenesin 200 mg/5 mL oral liquid 200 mg (5 mL) PO Q4H PRN cough 07/27/24 #118 mL prednisone 20 mg tablet 20 mg PO BID #10 tabs 07/27/24 Allergies Allergy/AdvReac Type Severity Reaction Status Date / Time ENVIRONMENTAL Allergy Unknown RASH Uncoded 07/26/24 23:02 seasonal Allergy Unknown unknown Uncoded 07/26/24 23:02 Review of Systems Review of Systems: all other systems are reviewed and are negative Constitutional: Reports as per HPI and Reports no additional constitutional complaints Eyes: Reports as per HPI and Reports no additional eye complaints Reports system reviewed and no additional complaints, except as documented Cardiovascular: Reports as per HPI and Reports no additional cardiovascular complaints Respiratory: Reports as per HPI and Reports no additional respiratory complaints Gastrointestinal: Reports as per HPI and Reports no additional gastrointestinal complaints Genitourinary: Reports no additional female genitourinary complaints Musculoskeletal: Reports no additional musculoskeletal complaints Skin/Breast: Reports system reviewed and no additional complaints, except as docu Psychiatric: Reports no additional psychiatric complaints Endocrine: Reports no additional endocrine complaints Hematologic/Lymphatic: Reports no additional hematologic/lymphatic complaints Allergic/Immunologic: Reports no additional allergic/immunologic complaints Reports system reviewed and no additional complaints, except as documented and Reports Abnormal speech present [facility] Past Medical History Medical History Asthma Social History Social History Alcohol intake: never Patient Tobacco Use Status: Never used Tobacco Gender identity: Female Physical Exam Vital Signs: Vital Signs: Last Vital Signs Temp 98.5 F 07/26/24 22:58 Pulse 76 07/26/24 22:58 Resp 16 07/26/24 22:58 BP 129/86 07/26/24 22:58 Pulse Ox 100 07/26/24 22:58 O2 Del Method Room Air 07/26/24 22:58 BMI result Body Mass Index 37.3 Vital signs have been reviewed and appear to be correct. Blood pressure elevated. Heart rate normal. Respiratory rate normal. Temperature normal. Oxygen saturation normal. Appearance: Alert. Oriented X3. No acute distress. Head: Normal external exam. Normocephalic. Atraumatic. No [place] signs noted. No raccoon eyes noted Eyes: PERRLA. EOMI. Conjunctiva and sclera normal. Eyelids normal. ENT: TM's Normal. Pharynx normal. Uvula midline. Moist mucous membranes. No trismus noted. No drooling noted. No muffled voice noted. Neck: Normal inspection. Neck supple. FROM. No adenopathy. Thyroid Normal. No meningeal signs. No neck mass noted. CVS: Normal heart rate and rhythm. Heart sound normal. No murmurs noted. Pulses normal throughout. Respiratory: No respiratory distress. Painless inspiration. diffuse expiratory wheezing with prolonged expiration. No accessory muscle usage noted or decreased air movement noted. Abdomen: Soft and nontender. Bowel sounds normal in all 4 quadrants. No distention noted. No organomegaly noted. No visible injury noted. Back: No CVA tenderness. Full range of motion noted. Skin: Skin warm and dry. Normal skin color. Normal skin turgor. No rashes/lesions/lacerations noted. Extremities: No lower extremity edema. Extremities exhibit normal range of motion. Extremities nontender. Neuro: Oriented X 3. Cranial nerve exam: II-XII are grossly intact No motor deficit. No sensory deficit. Reflexes normal. Course Reevaluation(s) Reevaluation #1: 18-year-old female with history of asthma came in with upper respiratory symptoms, chest x-ray is showing no acute pneumonia or infiltrate a. Start the patient on prednisone x5 days, start on Z-Gilbert, and bronchodilator. Time: 00:21 Medical Decision Making Differential Diagnosis Differential Diagnoses: The differential diagnosis associated with the presentation includes ( Pneumonia, pneumothorax, pleural effusion, viral bronchitis, viral upper respiratory symptoms.) Admission/Observation Consideration of admission/observation: Escalation of care including admission/observation considered Lab Data MDM Lab Attestation statement: I reviewed the patient's lab results. Labs: Lab Results 07/26/24 Range/Units 23:16 Influenza Type A (PCR) NEGATIVE (Negative) Influenza Type B (PCR) NEGATIVE (Negative) RSV RNA Qual (PCR) NEGATIVE (Negative) SARS-CoV-2 RNA (RT-PCR) NEGATIVE (Negative) Independent Interpretation I performed an independent interpretation of an: Plain X-Ray ( Chest: Unremarkable examination.) Radiology Impression Discussion of test interpretation with radiology: I have reviewed the radiologist's reading. Chronic Conditions Patient?s care impacted by: Other ( Bronchial asthma.) Discharge Plan Discharge Clinical Impression: Bronchitis Patient Disposition: Home, Self-Care Instructions: Acute Bronchitis (ED) Prescriptions: New azithromycin [Zithromax Z-Gilbert] 250 mg tablet See Rx Instructions .ROUTE .COMPLEX Qty: 6 0RF Rx Instructions: For 250 mg dose pack: take 500 mg today (day 1), then 250 mg for 4 days (days 2-5) prednisone 20 mg tablet 20 mg PO BID Qty: 10 0RF albuterol sulfate 90 mcg/actuation HFA aerosol inhaler 2 puff inhalation Q4-6H PRN (Reason: shortness of breath or wheezing) Qty: 8.5 0RF guaifenesin 200 mg/5 mL liquid 200 mg PO Q4H PRN (Reason: cough) Qty: 118 0RF No Action miconazole nitrate [Monistat 7] 2 % cream 1 appful vaginal BEDTIME 7 Days Qty: 45 0RF acetaminophen [Tylenol] 325 mg tablet 650 mg PO Q6H PRN (Reason: fever or pain) Qty: 14 0RF cyclobenzaprine 5 mg tablet 5 mg PO TID PRN (Reason: muscle spasm) Qty: 14 0RF loperamide [Anti-Diarrheal (loperamide)] 2 mg capsule 2 mg PO Q6H PRN (Reason: loose stool) Qty: 20 0RF pantoprazole [Protonix] 40 mg tablet,delayed release (DR/EC) 40 mg PO DAILY Qty: 14 0RF albuterol sulfate 2.5 mg /3 mL (0.083 %) solution for nebulization 2.5 mg inhalation Q4H PRN albuterol sulfate [ProAir HFA] 90 mcg/actuation HFA aerosol inhaler 2 puff inhalation Q4-6H PRN montelukast [Singulair] 5 mg tablet,chewable 5 mg PO BEDTIME Referrals: Susi Fuentes MD [Primary Care Provider] - Print Language: [place]
[2024-07-27 00:58] VITALS: BP 121/64; PULSE 67; RESP 18; TEMP 36.9; O2SAT 98
[2024-07-27 03:49] VITALS: BP 118/64; PULSE 70; RESP 18; TEMP 37; O2SAT 98
== END 2024-07-27 01:43 | disposition home or self-care (01) ==
PROVIDERS: Emergency Medicine; Emergency Provider Emergency Medicine; PCP Pediatrics
DX: J40 Bronchitis, not specified as acute or chronic (principal); R05.9 Cough, unspecified; R51.9 Headache, unspecified; R06.02 Shortness of breath; Z03.818 Encounter for observation for suspected exposure to other biological agents ruled out
CPT/HCPCS: 0241U; 71045; 99283

== ENCOUNTER 2024-10-08 08:33 | Emergency (ER) | payer OTHER, SELFPAY ==
--- NOTE | ~2024-10-08 | XR_ITS ---
EXAMINATION: XR CHEST 2 VIEWS HISTORY: cough and fever COMPARISON: Comparison is made with the prior examination dated 07/26/2024. FINDINGS: PA and lateral views of the chest are submitted. There is a small patchy opacity at the left lung base, suspicious for early pneumonia. The right lung is clear. There is no pleural effusion, pneumothorax, or pulmonary vascular congestion. The heart is normal in size. The bones are intact. XR/XR chest 2V IMPRESSION: Findings suspicious for early pneumonia at the left lung base. Electronically signed by: Dereck Jara MD 10/08/2024 09:05 AM [facility]
[2024-10-08 08:45] VITALS: BP 117/79; PULSE 99; RESP 18; TEMP 38.1; O2SAT 99; BMI 37.8
--- NOTE | 2024-10-08 08:45 | ED.NEUROSD ---
HPI - Neuro Symptoms/Deficit General Chief Complaint: Upper Respiratory Symptoms Stated Complaint: Flu+, numbness L arm Time Seen by Provider: 10/08/24 11:33 Source: patient Mode of arrival: ambulatory Limitations: no limitations History of Present Illness ED Provider: ARRON MARCELINO PA-C HPI Narrative: 19 year old healthy female presents the ED today for evaluation of generalized weakness x3 days. Patient was seen at yesterday where she tested positive for the flu. She was started on tamiflu which she has been taking as prescribed. Reports continued chills, generalized weakness, and productive cough making it difficulty for her to sleep at night. Also endorses right ear pain described as a throbbing sensation. She has been able to tolerate PO intake at home. Denies documented fever, sore throat, chest pain, SOB, wheezing, N/V/D, abd pain, urinary sx. Related Data Home Medications ?Medication ?Instructions ?Recorded ?Confirmed albuterol sulfate 2.5 mg/3 mL 2.5 mg inhalation Q4H PRN 05/17/20 11/15/23 (0.083 %) solution for nebulization albuterol sulfate 90 mcg/actuation 2 puff inhalation Q4-6H PRN 05/17/20 11/15/23 aerosol inhaler (ProAir HFA) montelukast 5 mg chewable tablet 5 mg PO BEDTIME 05/17/20 11/15/23 (Singulair) Previous Rx's ?Medication ?Instructions ?Recorded acetaminophen 325 mg tablet 650 mg (2 x 325 mg) PO Q6H PRN 05/29/20 (Tylenol) fever or pain #14 tabs cyclobenzaprine 5 mg tablet 5 mg PO TID PRN muscle spasm #14 05/29/20 tabs loperamide 2 mg capsule 2 mg PO Q6H PRN loose stool #20 08/10/23 (Anti-Diarrheal (loperamide)) caps miconazole nitrate 2 % vaginal 1 appful vaginal BEDTIME 7 days 11/19/23 cream (Monistat 7) #45 grams pantoprazole 40 mg tablet,delayed 40 mg PO DAILY #14 tabs 03/17/24 release (Protonix) albuterol sulfate 90 mcg/actuation 2 puff inhalation Q4-6H PRN 07/27/24 aerosol inhaler shortness of breath or wheezing #8.5 grams azithromycin 250 mg tablet See Rx Instructions PO .COMPLEX #6 07/27/24 (Zithromax Z-Gilbert) tabs guaifenesin 200 mg/5 mL oral liquid 200 mg (5 mL) PO Q4H PRN cough 07/27/24 #118 mL prednisone 20 mg tablet 20 mg PO BID #10 tabs 07/27/24 acetaminophen 325 mg tablet 975 mg (3 x 325 mg) PO Q6H PRN 10/08/24 (Tylenol) fever or pain #20 tabs azithromycin 250 mg tablet See Rx Instructions PO .COMPLEX #6 10/08/24 tabs Allergies Allergy/AdvReac Type Severity Reaction Status Date / Time ENVIRONMENTAL Allergy Unknown RASH Uncoded 10/08/24 08:47 seasonal Allergy Unknown unknown Uncoded 10/08/24 08:47 Review of Systems Review of Systems: Constitutional: No fatigue, night sweats, weight changes, +fever, +chills ENT/Mouth: No ear pain, hearing loss, nasal congestion, sinus pain, rhinorrhea, sore throat Eyes: No eye pain, swelling, redness, vision changes, discharge Cardio: No chest pain, palpitations, [place], orthopnea, peripheral edema Pulm: No SOB, cough, sputum, wheezing, dyspnea, hemoptysis GI: No nausea, vomiting, hematemesis, abdominal pain, diarrhea, constipation, hematochezia, melena : No irregular bleeding, dysuria, frequency, urgency, hesitancy, hematuria, flank pain, urinary flow changes, urinary incontinence or retention MSK: No back pain, neck pain, joint pain, +myalgias Skin: No lesions, rashes Neuro: No weakness, numbness, paresthesias, LOC, dizziness, headache Psych: No anxiety/panic, depression, SI/HI, AH/VH All other systems reviewed and are negative. [facility], [facility] Past Medical History Attestation statement: The following information was validated with the patient. Source: old records reviewed and nursing notes reviewed Medical History Asthma Social History Social History Alcohol intake: never Patient Tobacco Use Status: Never used Tobacco Advance Directives: No Advance Directives Information Provided: Yes Gender identity: Female Physical Exam Vital Signs: Vital Signs: Last Vital Signs Temp 99.5 F 10/08/24 11:31 Pulse 78 10/08/24 12:22 Resp 12 10/08/24 11:31 BP 126/85 10/08/24 12:22 Pulse Ox 99 10/08/24 12:22 O2 Del Method Room Air 10/08/24 12:22 BMI result Body Mass Index 37.8 low-grade fever of 100.6F, vitals are otherwise WNL General: Well appearing, in no acute distress. Skin: Warm, dry, intact. No rashes or lesions. Head: Normocephalic, atraumatic. EENT: Hearing is intact b/l. Conjunctiva clear. PERRLA. EOM intact. Moist mucous membranes.?Posterior oropharynx WNL. bilateral EACs and TMs WNL. No erythema or effusion. Neck: Supple without LAD Cardiac: Chest wall symmetric. RRR Lungs: Normal respiratory effort without accessory muscle use. CTA bilaterally. No rales, rhonchi, or wheezes.? Abdomen: Soft, non-tender, non-distended. No rebound tenderness or guarding. Positive BS x4. Ext: Upper and lower extremities atraumatic, without tenderness, deformity, swelling or erythema Neuro: AOx3. Normal speech. Ambulating with steady gait. Course Course Course Narrative: 19 yo female with PMH of + FLU dx at urgent care they started tamiflu. She has been sick since Sunday. She feels weak not able to sleep and her body is cold. No n/v/d. She is able to drink fluids. She has been taking motrin - last dose 2am. She comes with weakness, not feeling well, tingling in extremities. At this time basic labs, CXR ordered. this is a RAPID medical screening exam the rest of the history and physical exam is to be done by the main provider. Reevaluation(s) Reevaluation #1: 1230 -- Patient tested positive for influenza at outpatient facility yesterday. she was started on tamiflu. she presents today with continued flu-like symptoms. Her labs are unremarkable. Her chest x-ray shows findings concerning for an early pneumonia to left lung base. Will treat for this. Her temp improved with Tylenol today. Will send azithromycin to pharmacy for treatment. Advised Tylenol/ Motrin at home. Patient has remained stable throughout ED visit today. Discussed worrisome signs and symptoms and when to return to the ED. All questions answered at this time. Patient is agreeable with disposition and stable for discharge. Medications Administered Discontinued Medications Generic Name Dose Route Start Last Admin Trade Name Miles PRN Reason Stop Dose Admin Acetaminophen 975 mg 10/08/24 08:47 10/08/24 08:49 Acetaminophen 325 Mg Tablet PO 10/08/24 08:48 975 mg ONCE ONE Administration Medical Decision Making Medical Decision Making [facility] Narrative: 19 year old healthy female presents the ED today for evaluation of generalized weakness x3 days. low grade temp of 100.6F on arrival, vitals otherwise wnl. she is nontoxic appearing and in NAD. on exam, lungs are CTA b/l. No noted respiratory distress. No tripoding. Bilateral EACs and TMs WNL. Posterior oropharynx WNL. Differential diagnosis includes viral syndrome, bronchitis, pneumonia, electrolyte abnormality Unlikely strep throat, [employer], retropharyngeal abscess, epiglottitis, otitis media versus externa, mastoiditis, malignant otitis externa Plan for labs, cxr, tylenol for fever Differential Diagnosis Differential Diagnoses: The differential diagnosis associated with the presentation includes as above. Admission/Observation not indicated. Lab Data [facility] Lab Attestation statement: I reviewed the patient's lab results. as above. 10/08/24 09:35 10/08/24 00:47 Labs: Lab Results 10/08/24 10/08/24 Range/Units 00:47 09:35 WBC 7.7 (4.8-10.8) X10*3/uL RBC 4.40 (4.20-5.50) X10*6/uL Hgb 11.4 L (12.0-16.0) g/dl Hct 35.0 L (37.0-47.0) % MCV 79.5 L (80.0-98.0) fL MCH 25.9 L (27.0-33.0) pg MCHC 32.6 (31.0-35.0) g/dl RDW 13.6 (11.0-16.0) % Plt Count 165 (160-400) X10*3/uL MPV 12.2 (9.4-12.3) fL Immature Gran % (Auto) 0.4 (0.0-0.4) % Neut % (Auto) 73.8 H (45-73) % Lymph % (Auto) 11.5 L (20-40) % [place]berson % (Auto) 13.7 H (2-11) % Eos % (Auto) 0.3 (0-4) % Baso % (Auto) 0.3 (0-2) % Lymph # (Auto) 0.9 L (1.2-4.9) X10*3/uL [place] # (Auto) 1.1 (0.1-1.2) X10*3/uL Eos # (Auto) 0.0 (0.0-0.4) X10*3/uL Baso # (Auto) 0.0 (0.0-0.2) X10*3/uL Abs Immat Gran (auto) 0.03 (0.00-0.03) X10*3/uL Absolute Neuts (auto) 5.7 (2.0-8.3) x10*3/uL Absolute Nucleated RBC 0.000 (0.0-0.012) X10*3/uL Nucleated RBC % (auto) 0.0 (0.0-0.2) /100WBC Sodium 137 (135-145) mmol/L Potassium 3.8 (3.3-5.1) mmol/L Chloride 107 (96-108) mmol/L Carbon Dioxide 21 L (22-29) mmol/L Anion Gap 13 (12-20) BUN 12 (9-16) mg/dL Creatinine 0.66 (0.5-1.4) mg/dL Estim Creat Clear Calc 166.2 Estimated GFR > 60 Random Glucose 103 (60-115) mg/dL Calcium 8.4 D (8.4-10.2) mg/dL Magnesium 1.6 (1.6-2.6) mg/dL Total Bilirubin 0.2 (0.0-1.0) mg/dL Direct Bilirubin < 0.2 (0.0-0.5) mg/dL AST 20 (5-31) U/L ALT 15 (0-31) U/L Alkaline Phosphatase 67 (39-117) U/L Total Protein 6.9 (6.5-8.0) g/dL Albumin 3.8 (3.5-5.0) g/dL Beta HCG, Quant < 2 mIU/mL Independent Interpretation I performed an independent interpretation of an: Plain X-Ray Interpretation: CXR showing opacity to left lung base Radiology Impression Discussion of test interpretation with radiology: I have reviewed the radiologist's reading. Radiologist Impression: Procedure(s): XR chest 2V Accession Number(s): [id number] cc: Vi Mack DO; Susi Fuentes MD~ EXAMINATION: XR CHEST 2 VIEWS HISTORY: cough and fever COMPARISON: Comparison is made with the prior examination dated 07/26/2024. FINDINGS: PA and lateral views of the chest are submitted. There is a small patchy opacity at the left lung base, suspicious for early pneumonia. The right lung is clear. There is no pleural effusion, pneumothorax, or pulmonary vascular congestion. The heart is normal in size. The bones are intact. XR/XR chest 2V IMPRESSION: Findings suspicious for early pneumonia at the left lung base. Electronically signed by: Dereck Jara MD 10/08/2024 09:05 AM [facility] External Record Review External record reviewed: Inpatient record Prescription Management I considered prescription management with: Antibiotic (zpak) and Other (tylenol/motrin) Social Determinants Patient?s care significantly limited by Social Determinants of Health including: Other Social Determinant of Health Critical Care Time Critical Care Time Critical Care Time: No Discharge Plan Discharge Clinical Impression: CAP (community acquired pneumonia) Patient Disposition: Home, Self-Care Instructions: Community Acquired Pneumonia (ED) Additional Instructions: You were evaluated in the ED today after testing positive for the flu yesterday. Your blood work is reassuring. Your chest xray shows findings for a developing pneumonia within your left lung. Treatment for this is with antibiotics. I have sent azithromycin to your pharmacy for treatment. take this as prescribed. I also recommend taking Tylenol/Motrin for fevers or body aches. Return to the ED with any new or worsening symptoms. In the case of an emergency call 911. Prescriptions: New acetaminophen [Tylenol] 325 mg tablet 975 mg PO Q6H PRN (Reason: fever or pain) Qty: 20 0RF azithromycin 250 mg tablet See Rx Instructions .ROUTE .COMPLEX Qty: 6 0RF Rx Instructions: For 250 mg dose pack: take 500 mg today (day 1), then 250 mg for 4 days (days 2-5) No Action miconazole nitrate [Monistat 7] 2 % cream 1 appful vaginal BEDTIME 7 Days Qty: 45 0RF acetaminophen [Tylenol] 325 mg tablet 650 mg PO Q6H PRN (Reason: fever or pain) Qty: 14 0RF cyclobenzaprine 5 mg tablet 5 mg PO TID PRN (Reason: muscle spasm) Qty: 14 0RF loperamide [Anti-Diarrheal (loperamide)] 2 mg capsule 2 mg PO Q6H PRN (Reason: loose stool) Qty: 20 0RF pantoprazole [Protonix] 40 mg tablet,delayed release (DR/EC) 40 mg PO DAILY Qty: 14 0RF azithromycin [Zithromax Z-Gilbert] 250 mg tablet See Rx Instructions .ROUTE .COMPLEX Qty: 6 0RF Rx Instructions: For 250 mg dose pack: take 500 mg today (day 1), then 250 mg for 4 days (days 2-5) prednisone 20 mg tablet 20 mg PO BID Qty: 10 0RF albuterol sulfate 90 mcg/actuation HFA aerosol inhaler 2 puff inhalation Q4-6H PRN (Reason: shortness of breath or wheezing) Qty: 8.5 0RF guaifenesin 200 mg/5 mL liquid 200 mg PO Q4H PRN (Reason: cough) Qty: 118 0RF albuterol sulfate 2.5 mg /3 mL (0.083 %) solution for nebulization 2.5 mg inhalation Q4H PRN albuterol sulfate [ProAir HFA] 90 mcg/actuation HFA aerosol inhaler 2 puff inhalation Q4-6H PRN montelukast [Singulair] 5 mg tablet,chewable 5 mg PO BEDTIME [place] [facility] [place] [facility] [place] [facility] [place] [facility] [place] [facility] [place] Group] Stand Alone Forms: Work/School Release Interventions: ED Discharge Assessment Last Done: 10/08/24 12:40 Discharge Date/Time: 10/08/24 12:40 Print Language: Faroese
[2024-10-08] MEDS: Acetaminophen 325 MG TABLET 975 MG PO (08:49)
[2024-10-08 09:53] LABS: MANUAL DIFF FLAG NO
[2024-10-08 09:57] LABS: Basophils Percent Auto 0.3 % (0-2); Eosinophils Percent Auto 0.3 % (0-4); Hemoglobin 11.4 g/dl (12.0-16.0); Imm Gran Abs Auto 0.03 X10*3/uL (0.00-0.03); Imm Gran Pct Auto 0.4 % (0.0-0.4); Lymphocytes Absolute Auto 0.9 X10*3/uL (1.2-4.9); Lymphocytes Percent Auto 11.5 % (20-40); Mean Corpuscular HGB Conc 32.6 g/dl (31.0-35.0); Mean Corpuscular Hemoglobin 25.9 pg (27.0-33.0); Mean Corpuscular Volume 79.5 fL (80.0-98.0); Mean Platelet Volume 12.2 fL (9.4-12.3); Monocytes Absolute Auto 1.1 X10*3/uL (0.1-1.2); Monocytes Percent Auto 13.7 % (2-11); Neutrophils Absolute Auto 5.7 x10*3/uL (2.0-8.3); Neutrophils Percent Auto 73.8 % (45-73); Platelet Count 165 X10*3/uL (160-400); Red Cell Distribution Width 13.6 % (11.0-16.0); White Blood Count 7.7 X10*3/uL (4.8-10.8)
[2024-10-08 10:24] LABS: Alanine Aminotransferase 15 U/L (0-31); Albumin Level 3.8 g/dL (3.5-5.0); Alkaline Phosphatase 67 U/L (39-117); Anion Gap 13 (12-20); Aspartate Amino Transferase 20 U/L (5-31); Bilirubin Direct < 0.2 mg/dL (0.0-0.5); Bilirubin Total 0.2 mg/dL (0.0-1.0); Blood Urea Nitrogen 12 mg/dL (9-16); Calcium 8.4 mg/dL (8.4-10.2); Carbon Dioxide 21 mmol/L (22-29); Chloride 107 mmol/L (96-108); Creatinine Clr Calc Pharmacy 166.2; Estimated Glomerular Filt Rate > 60; Glucose Random 103 mg/dL (60-115); Magnesium 1.6 mg/dL (1.6-2.6); Potassium 3.8 mmol/L (3.3-5.1); Sodium 137 mmol/L (135-145); Total Protein 6.9 g/dL (6.5-8.0)
[2024-10-08 11:31] VITALS: BP 140/72; PULSE 72; RESP 12; TEMP 37.5; O2SAT 99
[2024-10-08 12:18] LABS: HCG Quantitative < 2 mIU/mL
[2024-10-08 12:22] VITALS: BP 126/85; PULSE 78; O2SAT 99
[2024-10-08 12:40] VITALS: BP 126/85; PULSE 78; RESP 16; TEMP 37.2; O2SAT 99
--- OUTSIDE RECORDS SUMMARY | 2024-10-08 14:17 | XMS_ITS | Encounter Summary ---
Author Organization [facility] Address [address] [place] [address] Phone Care Team Providers Care Tin Worker Name Role Phone Unavailable Primary Care Provider Unavailabl e Reason for Visit * Reason Onset Date Comments 19 letter 10/08/2024 Encounter Details Date Type Department Care Team (Late st Contact Info) Description 10/08/2024 Telephone [facility] [place] [address] [place] [address] Susi Fuentes MD [address] [place] [address] 19 letter Social History Tobacco Use Types Packs/Day Years Used Date Smoking Tobacco: Never Assessed Hunger/Food Answer Date Recorded In the last 12 months, did y ou or your family ever eat less than you felt you should because there wasn't enough money for food? No 01/01/2024 Stable Housing Answer Date Recorded Are you worried that in the next 2 months you may not have stable housing? No 01/01/2024 Transportation Concerns Answer Date Rec orded In the last 12 months, have you or your family ever had to go without healthcare because you didn't have a way to get there? No 01/01/2024 Hazards in Home Answer Date Recorded Think about the place you li ve. Do you have problems with any of the following? Pests (mice or roaches), mold, no/not working smoke detectors, water leaks, no window guards. No 2023 Financing Utilities Answer Date Recorde d In the last 12 months, has t he electric, gas, oil, or water company threatened to shut off your services in your home? No 01/01/2024 Safety at Home Answer Date Recorded Are you or your family worried about feeling saf e in your home? No 01/01/2024 Outside Support Answer Date Recorded Do you feel that you need mo re support from other people or programs to help you care for yourself or your family? No 01/01/2024 Understanding Health Concerns Answer Da te Recorded Do you need help understandi ng your or your child's healthcare needs (diagnosis, medications, plan, etc.)? Yes 01/01/2024 Financing Health Concerns Answer Date R ecorded In the last 12 months, was t here a time when your child needed to see a doctor or get medications or supplies but could not because of cost? No 01/01/2024 Missing School or Work Answer Date Massimo rded Did you or your child miss s chool or work because of a health problem that could have been avoided? No 01/01/2024 Child Education Answer Date Recorded Do you have concerns about y our/your child's learning or behavior in school, preschool, or daycare? No 01/01/2024 Comments No Sex and Gender Information Value Date Recorded Sex Assigned at Not on file Legal Sex Female 4:07 PM EDT Gender Identity Female 07/03/2023 7:42 AM EST Sexual Orientation Straight 09/12/2021 11 :58 AM EST documented as of this encounter Miscellaneous Notes * Telephone Encounter - Octavia Abad - 10/08/2024 1:16 PM EST 19 letter sent with adult pcp list and release documented in this encounter Plan of Treatment Not on file documented as of this encounter Visit Diagnoses Not on filedocumented in this encounter
--- OUTSIDE RECORDS SUMMARY | 2024-10-08 14:17 | XMS_ITS | Clinical Summary ---
Author Organization [facility] Address [address] [place] [phone] Phone Care Team Providers Care Vp Biology Name Role Phone Unavailable Primary Care Provider Unavailabl e Allergies No known active allergies Medications EPINEPHrine 0.3 MG/0.3ML injection syringe INJECT THE CONTENTS OF 1 PEN IN THE MUSCLE NEEDED 021 Active fluticasone 50 MCG/ACT nasal spray U 2 SPRAYS IEN ONCE D 020 Active Acetaminophen 325 MG capsule TK 2 TS PO Q 6 H PRF FEVER OR PN 020 Active ondansetron ODT 4 MG disintegrating tablet DISSOLVE 1 TABLET ON THE TONGUE EVERY 8 HOURS NEEDED FOR NAUSEA OR VOMITING 022 Active omeprazole 20 MG delayed-release capsuleIndication s:Epigastric abdominal pain Take 1 capsule (20 mg total) by mouth daily. Take medicine one hour before eating. 30 capsule 1 023 Active Additional Information Patient not taking.Reported on 12/27/2022 LactobacillusRaysaInash nunez (Probiotic Digestive Support) capsuleIndication s:Abdominal discomfort Take 1 capsule by mouth daily. 30 capsule 2 023 Active Additional Information Patient not taking.Reported on 07/23/2024 desvenlafaxine 100 MG 24 hr tablet 023 Active topiramate 25 MG tablet Take 50 mg by mouth nightly. 024 Active buPROPion SR 100 MG 12 hr tablet Take 300 mg by mouth once. Active polyethylene glycol (MiraLax) 17 GM/SCOOP powderIndications :Abdominal discomfort Take 17 g by mouth daily. Stir and dissolve powder into 4 to 8 ounces of beverage and then drink. 765 g 1 08/28/2 024 Active Additional Information Patient not taking.Reported on 07/23/2024 albuterol HFA 108 (90 Base) MCG/ACT inhalerIndication s:Mild intermittent asthma without complication Inhale 2 puffs every 4 (four) hours as needed for wheezing. 1 Units 024 2024 Active Additional Information Patient not taking.Reported on 07/23/2024 Spacer/Aero-Holdi ng Chambers (Vortex Valved Holding Chamber) deviceIndications :Mild intermittent asthma without complication 1 Device as needed (wheeze, cough). 1 each Active Additional Information Patient not taking.Reported on 07/23/2024 ibuprofen 200 MG capsuleIndication s:Sore throat Take 2 capsules (400 mg total) by mouth every 6 (six) hours as needed for pain or fever (For fever or pain). 120 capsule Active Additional Information Patient not taking.Reported on 07/23/2024 Senna-Time 8.6 MG tablet TAKE 1 TABLET BY MOUTH TWICE DAILY NEEDED FOR CONSTIPATION Active ALBUTEROL IN USE 1 VIAL VIA NEBULIZER EVERY 4 HOURS NEEDED FOR WHEEZING OR SHORTNESS OF BREATH 021 2021 Discontinued Active Problems Problem Noted Date Diagnosed Date Tachycardia 01/02/2024 Overview (01/02/2024): 01/02/2024 (age 18yr): Perceived tachycardia at night before going to sleep. Episodes are breif - check EKG and follow up after it is done Assessment & Plan (01/02/2024 12:58 PM EDT): 01/02/2024 (age 18yr): Perceived tachycardia at night before going to sleep. Episodes are breif - check EKG and follow up after it is done Abscess 01/02/2024 Overview (01/02/2024): 01/02/2024 (age 18yr): Recurrent abscess mons pubis, usually self resolving. - trial of bleach baths weekly x several months. - mupirocin for nose Assessment & Plan (01/02/2024 12:55 PM EDT): 01/02/2024 (age 18yr): Recurrent abscess mons pubis, usually self resolving. - trial of bleach baths weekly x several months. - mupirocin for nose Dysmenorrhea 11/12/2023 Overview (01/02/2024): 01/02/2024 (age 18yr): Followed by [facility] + - Last Specialist Visit: 11/15/2023 . Discussed BC options, dysmenorrhea [place] options. Will use ibuprofen. Was not Rx'd BC. Assessment & Plan (01/02/2024 11:29 AM EDT): 01/02/2024 (age 18yr): Followed by [facility] + Anxiety 04/24/2023 Overview (01/04/2024): 04/24/23 - Pt's anxiety has increased due to discontinuing medication and recent break-up with her boyfriend. Is having difficulty with focus at school. 05/01/23 - Pt is accepting the break-up and feels that her emotions are still there, but more manageable. She has contacted [facility] and plans to follow-up there. She did not schedule a follow-up with [facility], but will follow-up with PCP. [facility] invited her to return of needed. 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 Patient will benefit from support in managing her anxiety, accepting/ mourning recent loss, and follow-up with PCP around medication - Pt to see [facility] briefly and bridge to [facility] (pt to contact and connect). PLAN: Follow up with [facility] briefly and bridge to outpatient services (Pt has already called [facility] and plans to bridge to services there) Patient goal is to be able to manage her anxiety and distress and continue to function and do well in school. Behavioral Recommendations: Pt to learn relaxation exercises Pt to work through her recent loss of a relationship c. Pt to seek social support from friends and family. 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 Patient will benefit from support in managing her anxiety, accepting/ mourning recent loss, and follow-up with PCP around medication - Pt to see [facility] briefly and bridge to [facility] (pt to contact and connect). PLAN: Follow up with [facility] briefly and bridge to outpatient services Patient goal is to be able to manage her anxiety and distress and continue to function and do well in school. Behavioral Recommendations: Pt to learn relaxation exercises Pt to work through her recent loss of a relationship c. Pt to seek social support from friends and family. Eating problem 03/23/2023 Overview (04/20/2023): 03/23/2023 (age 17yr): disordered eating patter (fasts, binges). - refer to nutrirtion - hope this will help with ongoing abdominal discomfort - Last Specialist Visit: 04/06/2023 nutrition Alexi Munguia. Binging and restricting. Suggest intuitive eating, stop calorie counting, heal relationship with food. Abdominal pain/bloating likely related to disordered eating. Assessment & Plan (04/06/2023 1:05 PM EDT): 03/23/2023 (age 17yr): disordered eating patter (fasts, binges). - will call nutrition today. Assessment & Plan (03/23/2023 5:39 PM EDT): 03/23/2023 (age 17yr): disordered eating patter (fasts, binges). - refer to nutrirtion - hope this will help with ongoing abdominal discomfort Abdominal discomfort 02/16/2023 Overview (04/09/2024): 08/08/2023 (age 17yr): Resurgence of constipation and abdominal discomfort desipite reported regualr meals. Prunelax has helped in the past. - try regular dosing of prune lax - can refer to GI if no improvement - is seeing nutrition for help with eating patterns. - Last Specialist Visit: 04/06/2023 nutrition Alexi Munguia. Binging and restricting. Suggest intuitive eating, stop calorie counting, heal relationship with food. Abdominal pain/bloating likely related to disordered eating. 03/16/[address] done at [facility] 04/09/2024 (age 18yr): History consistent with prolonged constipation. - miralax clean out - then miralax 1 -2 caps daily - refer to GI Detailed History and Chronology of care:] 02/16/2023 (age 17yr): 2 weeks of lower abdominal cramping, bloating, decreased appetite. Diffuse abdominal tenderness with no guarding on exam, most significant in the epigastric area. Currently on Prilosec since November 2021 for presumed gastritis/reflux. Differential is broad and includes constipation, colitis, viral infection, GERD/gastritis, menstrual cramp. Start prilosec 02/18/23 labs normal except for mild anemia 02/18/23 KUB mild stool retention) 03/23/2023 (age 17yr): Weight has been increasing recently. Continues with intermittent discomfort/bloating (about half the days).. Leah reports disordered eating and bloating feeling. She thinks her bloated feeling may be related to stress. I am suspecting irritable bowel syndrome. 02/18/23 KUB mild stool retention) -Okay to continue Prilosec as needed - Continue probiotics -Continue prune pills as needed - Refer to nutrition - Consider GI referral Assessment & Plan (04/09/2024 10:25 AM EDT): 04/09/2024 (age 18yr): History consistent with prolonged constipation. - miralax clean out - then miralax 1 -2 caps daily - refer to GI Assessment & Plan (08/08/2023 8:55 AM EST): 08/08/2023 (age 17yr): Resurgence of constipation and abdominal discomfort desipite reported regualr meals. Prunelax has helped in the past. - try regular dosing of prune lax - can refer to GI if no improvement - is seeing nutrition for help with eating patterns. Assessment & Plan (04/06/2023 1:03 PM EDT): 04/06/2023 (age 17yr): 02/18/23 KUB mild stool retention Generally feeling better, now having daily Bms, nor needing any medication. Suspect remaining symptoms will improve with regular meals. Is currently binge eating. (Has used prilosec, probiotics, prune pills in the past) Will be seeing nutrition. Will consider GI consult if Sx do not resolved. Assessment & Plan (03/23/2023 5:39 PM EDT): 03/23/2023 (age 17yr): Weight has been increasing recently. Continues with intermittent discomfort/bloating (about half the days).. Leah reports disordered eating and bloating feeling. She thinks her bloated feeling may be related to stress. I am suspecting irritable bowel syndrome. -Okay to continue Prilosec as needed - Continue probiotics -Continue prune pills as needed - Refer to nutrition - Consider GI referral Assessment & Plan (02/16/2023 5:31 PM EDT): 02/16/2023 (age 17yr): 2 weeks of lower abdominal cramping, bloating, decreased appetite. Diffuse abdominal tenderness with no guarding on exam, most significant in the epigastric area. Currently on Prilosec since November 2021 for presumed gastritis/reflux. Differential is broad and includes constipation, colitis, viral infection, GERD/gastritis, menstrual cramp. -- G/C - continue prilosec - start probiotc - bloodwork - check KUB - consider increasing PPI treatment vs GI referral, vs treat constipation Memory difficulties 06/28/2022 Overview (08/08/2023): 08/08/2023 (age 17yr): continued memory difficulties but improving with treatment of anxiety and depression. Sees psych now. (Dr. Myra Mcdaniel ) Detailed History and Chronology of care: 07/19/2022 (age 16yr): Would like ADHD evaluation, can look for psych through psychology today. Also has anxiety and weight loss. 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 Did have the same difficulty in college. Still would like to be evaluated for ADHD. Has not scheduled anything because she need to contact her insurance company about BH coverage. I encouraged her to do this. 09/06/2022 (age 16yr): Has appt coming up with BH provider Lucy Nieto 03/23/2023 (age 17yr): Patient was diagnosed with anxiety and we are hopeful that the fluoxetine she is taking will help with her memory issues in school this semester Assessment & Plan (08/08/2023 12:30 PM EST): 08/08/2023 (age 17yr): continued memory difficulties but improving with treatment of anxiety and depression. Sees psych now. Assessment & Plan (05/30/2023 5:26 PM EDT): 05/30/2023 (age 17yr): continued memory difficulties - Recommend ADHD kailash, gave number for [facility] , [employer] - has extra help at school - discussed memorization techniques Assessment & Plan (04/06/2023 1:00 PM EDT): 04/06/2023 (age 17yr): Symptoms seems to be improving with treatment of anxiety. Assessment & Plan (03/23/2023 5:35 PM EDT): 03/23/2023 (age 17yr): Patient was diagnosed with anxiety and we are hopeful that the fluoxetine she is taking will help with her memory issues in school this semester Assessment & Plan (08/23/2022 2:27 PM EST): 08/23/2022 (age 16yr): Working on getting BH coverage through insurance. 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 Did have the same difficulty in college. Still would like to be evaluated for ADHD. Has not scheduled anything because she need to contact her insurance company about coverage. I encouraged her to do this. Assessment & Plan (07/19/2022 5:59 PM EST): 07/19/2022 (age 16yr): Would like ADHD evaluation, can look for psych through psychology today. Also has anxiety and weight loss. - will schedule BH intake - can look for psychiatrist to make diagnosis (psychology today) - follow up 1 month Anxiety with depression 10/31/2021 Overview (01/02/2024): 01/02/2024 (age 18yr): psychiatrist (Dr. Myra Mcdaniel) and is on desvenlafaxine 100 mg for anxiety and depression. Previously had been off and on fluoxetine, questioning ADHD, and wondering if Fluoxetine was causing abdominal discomfort and weight gain. Still with these symptoms (see problems) - continue with psych Detailed History and Chronology of care: 10/31/2021 (age 16yr): Leah is here for bitemporal headache and dizziness today. Also has been feeling anxious out of nowhere, nervous about finals, is binge eating. I suggested follow up to further discuss this issue and anxiety and headache may be related. 07/19/2022 (age 16yr): Leah endorses anxiousness today, and thinks this may be the cause of some of her problems. - [facility] intake, pt to schedule 08/18/2022 (age 16yr): Leah this may be the cause of some of her problems on going medial complaints (headaches, dizziness, chest pain etc). She get irritated and upset, gets mood swings. 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 Developed a lot stress, having trouble with memorizing things for school. 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 Had apparent panic attack over new years. 11/08/2022: started fluoxetine 12/27/22 Dong well on fluoxetine 20 mg. Assessment & Plan (01/02/2024 12:53 PM EDT): 01/02/2024 (age 18yr): psychiatrist (Dr. Myra Mcdaniel) and is on desvenlafaxine 100 mg for anxiety and depression. Previously had been off and on fluoxetine, questioning ADHD, and wondering if Fluoxetine was causing abdominal discomfort and weight gain. Still with these symptoms (see problems) - continue with psych Assessment & Plan (08/08/2023 12:30 PM EST): 08/08/2023 (age 17yr): Now seeing psychiatrist (Dr. Myra Mcdaniel) and is on desvenlafaxine 100 mg for anxiety and depression. GAD7 and PHQ9 improved. Has follow up next month. Previously had been off and on fluoxetine, questioning ADHD, and wondering if Fluoxetine was causing abdominal discomfort and weight gain. Still with these symptoms (see problems) - continue with psych - Is waiting to get her own insurance so she can see a therapist at [facility] Assessment & Plan (05/30/2023 5:24 PM EDT): 05/30/2023 (age 17yr): Started on Fluoxetine 11/08/2022 with good effect. Had stopped med and restarted 04/24/2023. 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 Was sleeping a a lot and cried sometimes. Binge eats and weight had been fluctuating over time (see problem). She had stopped fluoxetine because she thought this was causing her abdominal issues. Now anxiety and depression seem improved. Continues with memory issues which may be anxiety or ADHD related. - Continue fluoxetine 20 - Had heard from [facility] and will follow up - see problem of abdominal discomfort and eating problem. - see problem of inattention Assessment & Plan (04/24/2023 2:43 PM EDT): 04/24/2023 (age 17yr): Started on Fluoxetine 11/08/2022 with good effect. Currently 20 mg dose but stopped med 1 week ago and had a panic attack resulting in ED visit. + Recent break up with BF. Tearful in the office today. 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 Was sleeping a a lot and cried sometimes. Binge eats and weight had been fluctuating over time (see problem). She had stopped fluoxetine because she thought this was causing her abdominal issues. - restart fluoxetine 20 mg (offered to start different SSRI) -WHO with Dr. Mensah (Makenna Morel) today - Frank will reach out to [facility] for sales and marketing intern therapy - follow up 4-6 weeks (has appt) Assessment & Plan (04/06/2023 12:52 PM EDT): 04/06/2023 (age 17yr): Started on Fluoxetine 11/08/2022 with good effect. Currently 20 mg dose. Anxiety and depression have been alleviated significantly. . 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 Was sleeping a a lot and cried sometimes. Binge eats and weight has been fluctuating over time (see problem). Patient believes fluoxetine may be causing bloating and was considering decreasing to 10 mg daily. The semester is about to start. I believe bloating is a symptom of disordered eating/constipation and not related to fluoxetine. - Continue fluoxetine 20 mg - Follow up 6 weeks - see problem of abdominal discomfort and eating problem. Assessment & Plan (03/23/2023 5:34 PM EDT): 03/23/2023 (age 17yr): Patient believes fluoxetine may be causing bloating and is considering decreasing to 10 mg daily. 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 I believe bloating is a symptom of disordered eating/constipation and not related to fluoxetine. - Recommend continuing with fluoxetine 20 mg for now - Follow-up for anxiety depression coming up Assessment & Plan (12/27/2022 9:14 AM EDT): 12/27/2022 (age 17yr): Started on Fluoxetine 11/08/2022 with good effect. Currently 20 mg dose. Anxiety and depression have been alleviated significantly. . 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 Was sleeping a a lot and cried sometimes. Binge eats and weight has been fluctuating over time (see problem). Had been followed by Lucy Nieto [facility] but still having issues with insurance. - Continue fluoxetine 20 mg - Try to get counseling through school - follow up 2-3 months. Assessment & Plan (11/21/2022 4:39 PM EDT): 11/21/2022 (age 17yr):Followed by Lucy Nieto [facility] but still having issues with insurance. . 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 Sleeps a lot and cries sometimes. Binge eats and weight has been fluctuating over time (see problem). Symptoms of anxiety somewhat imrpoved after 2 weeks on fluxoetine, now on 20 mg dose. Also thinks nursing school almost being over is helping. No side effects noted. - Continue fluoxetine 20 mg - follow up 4 weeks - continue with Lucy Nieto if possible - is working on insurance issue. Assessment & Plan (11/20/2022 2:43 PM EDT): Advise taking Fluoxetine as 10 mg BID until next f/up with PCP Assessment & Plan (11/08/2022 10:18 AM EDT): 11/08/2022 (age 17yr): Followed by Lucy Nieto [facility]. 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 Sleeps a lot and cries sometimes. Binge eats and weight has been fluctuating over time (see problem). - start fluoxetine 10 mg, increase to 2 mg in 1 week - follow up 2 weeks with me - continue with Lucy Nieto Assessment & Plan (11/01/2022 1:30 PM EDT): Patient with anxiety and worries who reports trouble sleeping and difficulty memorizing material for school in the context of first year of college. Patient reports panic attack at least one time. Patient feels that anxiety is impacting her ability remember things for tests and exams. Patient will benefit from short term support and bridge to longer term treatment. Patient is interested in a medication consult. Patient is ready to address anxiety. Strengths include Being a good student with future goals. PLAN: Follow up with [facility] 3 weeks Patient goal is to identify and process stressors and learn coping skills to address symptoms. Behavioral Recommendations: Review grounding and chose 3 strategies to practice Practice breathing and grounding when feeling calm and regulated c. Keep follow up appointments with [facility] and PCP Assessment & Plan (10/16/2022 2:51 PM EST): Patient with anxiety and worries who reports trouble sleeping and difficulty memorizing material for school in the context of first year of college. Patient reports panic attack at least one time. Patient feels that anxiety is impacting her ability remember things for tests and exams. Patient will benefit from short term support and bridge to longer term treatment. Patient is interested in a medication consult. Patient is ready to address anxiety. Strengths include Being a good student with future goals. PLAN: 1. Follow up with [facility] 2 weeks 2. Patient goal is to identify and process stressors and learn coping skills to address symptoms. 3. Behavioral Recommendations: a. Review grounding and chose 3 strategies to practice b. Practice breathing and grounding when feeling calm and regulated c. Keep follow up appointments with [facility] and PCP Assessment & Plan (09/27/2022 1:17 PM EST): Patient with anxiety and worries who reports trouble sleeping and difficulty memorizing material for school in the context of first year of college. Patient reports panic attack at least one time. Patient feels that anxiety is impacting her ability remember things for tests and exams. Patient will benefit from short term support and bridge to longer term treatment. Patient is interested in a medication consult. Patient is ready to address anxiety. Strengths include Being a good student with future goals. PLAN: 1. Follow up with [facility] 2 weeks 2. Patient goal is to identify and process stressors and learn coping skills to address symptoms. 3. Behavioral Recommendations: a. Review grounding and chose 3 strategies to practice b. Practice breathing and grounding when feeling calm and regulated c. Keep follow up appointments with [facility] and PCP Assessment & Plan (09/15/2022 11:24 AM EST): Patient with anxiety and worries who reports trouble sleeping and difficulty memorizing material for school in the context of first year of college. Patient reports panic attack at least one time. Patient feels that anxiety is impacting her ability remember things for tests and exams. Patient will benefit from short term support and bridge to longer term treatment. Patient is interested in a medication consult. Patient is ready to address anxiety. Strengths include Being a good student with future goals. PLAN: 1. Follow up with [facility] 2 weeks 2. Patient goal is to identify and process stressors and learn coping skills to address symptoms. 3. Behavioral Recommendations: a. Review grounding and chose 3 strategies to practice b. Practice breathing and grounding when feeling calm and regulated c. Keep follow up appointments with [facility] and PCP Assessment & Plan (08/23/2022 2:29 PM EST): 08/23/2022 (age 16yr): Working on getting BH coverage through insurance. Assessment & Plan (08/18/2022 12:35 PM EST): 08/18/2022 (age 16yr): Leah this may be the cause of some of her problems on going medial complaints (headaches, dizziness, chest pain etc). She get irritated and upset, gets mood swings. 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 Developed a lot stress, having trouble with memorizing things for school. 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 Had apparent panic attack over new years. - Needs to contact her insurance company regarding BH coverage. . Assessment & Plan (07/19/2022 6:09 PM EST): 07/19/2022 (age 16yr): Leah endorses anxiousness today, and thinks this may be the cause of some of her problems. - HBA intake, pt to schedule Assessment & Plan (10/31/2021 5:47 PM EDT): 10/31/2021 (age 16yr): Leah is here for bitemporal headache and dizziness today. Also has been feeling anxious out of nowhere, nervous about finals, is binge eating. I suggested follow up to further discuss this issue and anxiety and headache may be related. Epistaxis 09/12/2021 Overview (07/19/2022): 07/19/2022 (age 16yr): Nose bleeds much improved with allergy shots. Detailed History and Chronology of care: 09/12/2021 (age 15yr 11mo): Left side x 1 month, try vaseline. Bleeds once per week x 10-15 minutes. To ENT if persists. Assessment & Plan (07/19/2022 5:58 PM EST): 07/19/2022 (age 16yr): Nose bleeds much improved with allergy shots. Assessment & Plan (09/12/2021 11:46 AM EST): 09/12/2021 (age 15yr 11mo): Left side x 1 month, try vaseline. Bleeds once per week x 10-15 minutes. To ENT if per Change in weight 06/21/2020 Overview (08/08/2023): 08/08/2023 (age 17yr): Weight has been increasing recently. Has been eatomg 3 meals per day (as opposed to skipping meals as she was before). - continue with nutrition - Last Specialist Visit: 04/06/2023 nutrition Alexi Munguia. Binging and restricting. Suggest intuitive eating, stop calorie counting, heal relationship with food. Abdominal pain/bloating likely related to disordered eating. History 06/21/2020 (age 14 yr 8 mo): BMI down from 40.5 yo 34 and down 44 lbs over the last 1.5 years. Reports loosely following keto diet and exercise regularly. 06/22/2020 (age 14 yr 8 mo): Labs incl. CBC, comp Metab, lipids, glucose, TSH/Ft4 all nl. Prealb low nl, HGA1C high nl. Consider recheck labs 6-12 months. Recheck weight 1 month. 08/03/2020 (age 14 yr 10 mo): weight down another 6 lbs over about 6 weeks.and her BMI is down over 1 point. Pt reports eating well and exercising. Continue to monitor, f/u 2 months. 10/04/2020 (age 15yr 0mo): BMI down from 40.5 yo 34.8 at well visit on 06/21/2020 with a Heart Rate of 58. Down 44 lbs over the last 1.5 year. Pt was on a keto diet. Exercise run on treadmill 30 min to 1 hour 4 days per week. Reporting healthier attitude towards food. 08/03/2020, weight still down 6 lbs in 6 weeks 09/12/2021 (age 15yr 11mo): Consistent weight loss, 75 lbs over almost 3 years, 30 lbs over 1 year. Reports continued healthy diet, works out 4-5 times per week, 1.5 hours. Does cardio and toning. 06/28/2022 (age 16yr): Consistent weight loss over the last 2 year. Down 85 lbs over 2.5 year. BMI from 40.5 to 27.9. Reports that she does not have an appetite. If she is hungry, she eats. No abdominal pain, no diarrhea, no vomiting. Denies trying to lose weight, no goal weight. Beginning to suspect anorexia. Also has hand and foot edema, bradycardia, memory issues, and RUQ tenderness. Check labs. 07/01/2022 (age 16yr): Labs normal. EKG sinus rhythm with marked sinus arrhythma. Has follow up with me 07/19/2022. Recommend regular meals until follow up. Consider cardiology referral for bradycardia. Consider adolescent med referral (if possible due to age). Assessment & Plan (08/08/2023 12:32 PM EST): 08/08/2023 (age 17yr): Weight has been increasing recently. Has been eatomg 3 meals per day (as opposed to skipping meals as she was before). - continue with nutrition Assessment & Plan (05/30/2023 5:27 PM EDT): 05/30/2023 (age 17yr): Weight has been increasing recently. She believes it is due to eating 3 meals per day (as opposed to skipping meals as she was before). IS seeing nutrition., - Encouraged to continue to eat 3 meals per day, discuss food choices with nutrition, make small adjustments in diet l Assessment & Plan (03/23/2023 5:36 PM EDT): 03/23/2023 (age 17yr): Weight has been increasing recently. Leah reports disordered eating and bloating feeling. I am suspecting irritable bowel syndrome. - Refer to nutrition - Consider GI referral Assessment & Plan (11/08/2022 10:16 AM EDT): 11/08/2022 (age 17yr): Recent weight gain starting 07/19/2022 after consistent weight loss over the previous 2 years ( BMI from 40.5 to 27.9). Reports binge eating with no vomiting related to anxiety. . 07/01/2022. Labs normal and EKG sinus rhythm with marked sinus arrhythmia. - now seeing Lucy Nieto for anxiety - starting fluoxetine - dicussed healthy lifestyle and body image today Assessment & Plan (08/23/2022 2:28 PM EST): 08/23/2022 (age 16yr): Weight has been increasing lately. Continue to follow. Assessment & Plan (08/18/2022 12:29 PM EST): 08/18/2022 (age 16yr): Weight increased over the . Encouraged regular meals. Still needs BH intake but needs to contact insurance company about BH coverage first. Assessment & Plan (07/19/2022 6:08 PM EST): 06/28/2022 (age 16yr): Consistent weight loss over the last 2 years. Down 85 lbs over 2.5 year. BMI from 40.5 to 27.9. Weight stabilized since last visit 3 weeks ago. Started eating breakfast. Also reports binge eating with no vomiting. Reports that she does not have an appetite. If she is hungry, she eats. No abdominal pain, no diarrhea, no vomiting. Denies trying to lose weight, no goal weight. + bradycardia (improved today. Beginning to suspect anorexia. Labs normal 07/01/2022. EKG sinus rhythm with marked sinus arrhythmia. Leah endorses anxiety as a factor today. - Needs [facility] BH intake - follow up 1 month check weigh - consider cardiology referral - consider adolescent med referral Assessment & Plan (06/28/2022 3:53 PM EST): 06/28/2022 (age 16yr): Leah is here with a chief complaint of AM swelling of hands and feet over the last month. In addition I find significant weight loss over 2 years, bradycardia, and RUQ tenderness. There is no notable edema today. Leah also complains of memory difficulties, which were not addressed in detail today. I wonder if all symptoms could tie back to malnutrition. Will check extensive lab work up to start with. Bradycardia seem to be long standing. May need EKG once lab work is completed. Try to eat three meals per day. Follow up 2-3 weeks to discuss decrease in appetite, memory issues. Assessment & Plan (10/04/2020 2:34 PM EST): 10/04/2020 (age 15yr 0mo): Pace of weight loss has slowed. Leah has been eating 3 meals per day and is exercising calisthenics. She exerices 1 1.5 hours of exercise per day. Will follow up at next well visit. Assessment & Plan (08/03/2020 9:10 PM EST): 08/03/2020 (age 14 yr 10 mo): Today, Leah is down another 6 lbs over about 6 weeks.and her BMI is down over 1 point. Leah has doing 30 minutes of cardio and weight training 5 days per week. She says she's added rice to her diet every once in while but otherwise she hasn't changed her diet. She reports she is not doing a keto diet anymore. She eats yogurt, crackers, and an increased variety of fruits. She just eats small portions. Leah's mother sees her eating OK.She is not counting calories or exericsing based on what she eats. Mom sees her eating enough variety. Today we discussed the need for calories for the body to function properly, the need to eat regular meals with a wide variety of foods. Leah insists she's eating well and exercising appropriately. Will continue to monitor, follow up 2 months. Assessment & Plan (06/22/2020 9:59 AM EST): 06/21/2020 (age 14 yr 8 mo): BMI down from 40.3 yo 34.8. Heart Rate 58 today. Down 44 lbs over the last 1.5 year. Pt is is on a keto diet. Eating vegetables and meats. Avoiding chips, chocolate, soda. Still eats some carbs - cereal. 'I can't really stick to a keto diet'. Exercise run on treadmill 30 min to 1 hour 4 days per week. Pt reports a healthier attitude towards food, monitor closely. Check labs today. Weight check 1 month. Mild intermittent asthma without complication Overview (01/02/2024): 01/02/2024 (age 18yr): No daily meds, no symptoms. History of using controllers. Refill albuterol today. History: Treated with orapred for wheezing 05/14/2018. 01/23/2018, 12/18/2014, 08/14/2020 06/21/2020 (age 14 yr 8 mo): Restarted Singular 10 mg 3 RF. Follow up 2-3 months (Aug/Sep 2020) 01/13/2021 Rx Flovent 44 2 P BID 0 RF for asthma exacerbation related to URI. Assessment & Plan (01/02/2024 11:09 AM EDT): 01/02/2024 (age 18yr): No daily meds, no symptoms. History of using controllers. Refill albuterol today. Assessment & Plan (08/08/2023 12:31 PM EST): 08/08/2023 (age 17yr): No daily meds, no symptoms. History of using controllers. Refill albuterol today. Assessment & Plan (08/23/2022 2:09 PM EST): 08/23/2022 (age 16yr): No daily meds, no symptoms. History of using controllers. Refill albuterol today. Assessment & Plan (09/12/2021 12:14 PM EST): 09/12/2021 (age 15yr 11mo): No daily meds, no symptoms. History of using controllers. Refill albuterol today. Assessment & Plan (10/04/2020 2:37 PM EST): 10/04/2020 (age 15yr 0mo): Act score is 19 (marginal control). She is taking her singular daily, Rx'd 020. She is currently sick, and thinks that her score is worse because of that. Her asthma has not been bothering her in general. Refill albuterol 0.083% today. Assessment & Plan (06/21/2020 12:13 PM EST): 06/21/2020 (age 14 yr 8 mo): not currently on any meds. Was in the ED several weeks ago for pharyngitis, covid test was negative. No other treatments. No cough, no wheeze, no albuterol use. Has not had any meds since October. Asthma gets worse in the winter. Will refill with singulair 10 mg tab today an refill albuterol. F/U asthma in 2-3 months. History: Treated with orapred for wheezing 05/14/2018. 01/23/2018, Allergic rhinitis 06/19/2020 Overview (01/02/2024): 01/02/2024 (age 18yr): Followed by ENT per pt. Getting allergy shots weekly at [address], at maintenance. History: 12/02/2018: Rash on face and lip swelling after eating seafood (type not specified), Rx'ed orapred and epipen, referred to roof assembler. 02/05/2019: Saw Dr. Hamilton's office, diagnosed with environmental allergies, started on claritin. Seafood allergiy ruled out. 06/07/2020: Follow by ENT for allergies, considering immunotherapy through ENT. 09/12/2021 (age 15yr 11mo): Followed by ENT per pt. Getting allergy shots weekly at [address] Assessment & Plan (01/02/2024 11:19 AM EDT): 01/02/2024 (age 18yr): Followed by ENT per pt. Getting allergy shots weekly at [address], at maintenance. Assessment & Plan (08/23/2022 2:11 PM EST): 08/23/2022 (age 16yr): Followed by ENT per pt. Getting allergy shots weekly at [address], almost at maintenance. Assessment & Plan (09/12/2021 12:15 PM EST): 09/12/2021 (age 15yr 11mo): Followed by ENT per pt. Getting allergy shots weekly at [address] Assessment & Plan (06/21/2020 12:13 PM EST): 06/21/2020 (age 14 yr 8 mo): New pt today. Has been on zytec and singulair (for asthma) in the past. Off zytec and Singulair since October, doing OK with no current Sx. Per pt she was by both ENT and Allergy for allergy symptoms. Seafood allergy was suspected but she states she was only diagnosed with environmental allergies. She is considering immunotherapy through ENT. I requested both records. History: 12/02/2018: Rash on face and lip swelling after eating seafood (type not specified), Rx'ed orapred and epipen, referred to roof assembler. 02/05/2019: Saw Dr. Hamilton's office, note in records not readable. mg and zyrtec 10 mg today. Chronic pharyngitis 06/19/2020 Overview (09/12/2021): 09/12/2021 (age 15yr 11mo): Followed by ENT for this now ([address] Detailed History and Chronology of care: Treated at [facility] for recurrent strep, never diagnosed in records with strep, rapid strep and culture results not recorded. 05/15/2016: Dx Pharyngitis, Treated with azithromycin 08/15/2017:: Dx Pharyngitis, Treated with azithromycin 11/07/2017: Dx Pharyngitis,Treated with amox 06/27/2018: Dx Pharyngitis,Treated with azithromycin 05/14/2019: Dx Pharyngitis,Treated with azithromycin, and orapred for wheezing 08/26/2018:: Dx Pharyngitis, Treated with azithromycin 05/05/2019: Dx Pharyngitis, Treated with amox 06/30/2019: Dx Pharyngitis, Treated with azithromycin 01/08/2019: Dx Pharyngitis, Treated with azithromycin Assessment & Plan (01/02/2024 11:20 AM EDT): 01/02/2024 (age 18yr): Followed by ENT per pt. Getting allergy shots weekly at [address], at maintenance. Assessment & Plan (09/12/2021 12:16 PM EST): 09/12/2021 (age 15yr 11mo): Followed by ENT for this now ([address] Assessment & Plan (06/21/2020 12:15 PM EST): 06/21/2020 (age 14 yr 8 mo): New pt today. Recurrent pharyntigitis, always treated with antibiotics by previous practice. per pt she has seen ENT for recurrent ear infections, was found to have excessive wax. ENT (Jackie Major) in [place]. Will monitor for recurrent pharyngitis. History: Treated at [facility] for recurrent strep, never diagnosed in records with strep, rapid strep and culture results not recorded. 05/15/2016: Dx Pharyngitis, Treated with azithromycin 08/15/2017:: Dx Pharyngitis, Treated with azithromycin 11/07/2017: Dx Pharyngitis,Treated with amox 06/27/2018: Dx Pharyngitis,Treated with azithromycin 05/14/2019: Dx Pharyngitis,Treated with azithromycin, and orapred for wheezing 08/26/2018:: Dx Pharyngitis, Treated with azithromycin 05/05/2019: Dx Pharyngitis, Treated with amox 06/30/2019: Dx Pharyngitis, Treated with azithromycin 01/08/2019: Dx Pharyngitis, Treated with azithromycin Migraine without aura and wi thout status migrainosus, not intractable 06/19/2020 Overview (01/02/2024): 01/02/2024 (age 18yr): Migranes not bothering her. History 04/30/2018: Previous PCP Started on - Magnesium GLocnate 250mg 1 qhs - Riboflavin 100 mg BID with meals 06/21/2020 (age 14 yr 8 mo): new pt today, medical records indicate previous treatment with magnesium and riboflavin. Pt does not recall using these meds. Headaches are not bothersome at present. I encouraged her to make a headache appt if she would like to dsicuss it. 10/17/2021 (age 16yr): VV today for headaches, history consistent with migraine TREVINO with no red flags. Frontal, squeezing, + photophobia, sleep and ibuprofen help. Frequency < 1/ week. No wake from sleep. Has had similar headaches x years. -Recommend continue ibuprofen PRN, monitor TREVINO frequency. 10/31/2021 (age 16yr): Not reporting migraines today, current TREVINO is daily, bitemporal and extending to the sinuses. Normal exam. Assessment & Plan (01/02/2024 11:21 AM EDT): 01/02/2024 (age 18yr): Migranes not bothering her. Assessment & Plan (07/19/2022 5:58 PM EST): 07/19/2022 (age 16yr): Headachs much imrpoved with allergy shots. Gets them rarely. Uses ibuprofen which helps. Assessment & Plan (10/31/2021 5:48 PM EDT): 10/31/2021 (age 16yr): Not reporting migraines today, current TREVINO is daily, bitemporal and extending to the sinuses. Normal exam Assessment & Plan (10/17/2021 5:11 PM EST): 10/17/2021 (age 16yr): VV today for headaches, history consistent with migraine TREVINO with no red flags. Frontal, squeezing, + photophobia, sleep and ibuprofen help. Frequency < 1/ week. No wake from sleep. Has had similar headaches x years. -Recommend continue ibuprofen PRN, monitor TREVINO frequency. -Office visit for exam, also having new problem of dizziness. Assessment & Plan (09/12/2021 11:31 AM EST): 09/12/2021 (age 15yr 11mo): Needs OV to discuss headaches. Assessment & Plan (06/21/2020 12:20 PM EST): 06/21/2020 (age 14 yr 8 mo): new pt today, medical records indicate previous treatment with magnesium and riboflavin. Pt does not recall using these meds. Headaches are not bothersome at present. I encouraged her to make a headache appt if she would like to dsicuss it. History 04/30/2018: Started on - Magnesium GLocnate 250mg 1 qhs - Riboflavin 100 mg BID with meals Resolved Problems Problem Noted Date Diagnosed Date Resolved Date Elevated blood pressure reading 08/08/2023 01/02/2024 Overview (08/08/2023): 08/08/2023 (age 17yr): Recheck at 1 month follow up. Assessment & Plan (08/08/2023 9:24 AM EST): 08/08/2023 (age 17yr): Recheck at 1 month follow up. Bradycardia 06/28/2022 01/02/2024 Overview (08/18/2022): 08/18/2022 (age 16yr): Consistent bradycardia since 06/2020. EKG normal except for sinus bradycardia. EKG 07/01/2022 sinus rhythm with marked sinus arrhythmia. Assessment & Plan (08/18/2022 12:32 PM EST): 08/18/2022 (age 16yr): Consistent bradycardia since 06/2020. EKG normal except for sinus bradycardia. EKG 07/01/2022 sinus rhythm with marked sinus arrhythmia. Dizziness 10/17/2021 08/18/2022 Overview (08/18/2022): 08/18/2022 (age 2yr 2mo): Problem resolved. Detailed History and Chronology of care: 10/17/2021 (age 16yr): Dizziness/vertigo when turning head x 2 weeks. Sx lasts 30 seconds. Recommend OV to examine ears, consider ENT referral. (Pt reports she saw ENT 2-3 weeks ago prior to Sx starting) Possible benign paroxysmal vertigo. Assessment & Plan (08/18/2022 12:29 PM EST): 08/18/2022 (age 2yr 2mo): Problem resolved. Assessment & Plan (10/17/2021 5:18 PM EST): 10/17/2021 (age 16yr): Dizziness/vertigo when turning head x 2 weeks. Sx lasts 30 seconds. Recommend OV to examine ears, consider ENT referral. (Pt reports she saw ENT 2-3 weeks ago prior to Sx starting) Possible benign paroxysmal vertigo. Eczema 06/19/2020 09/12/2021 Overview (09/12/2021): 09/12/2021 (age 15yr 11mo): Problem resolved, no meds needed. Detailed History and Chronology of care: 06/21/2020 (age 14 yr 8 mo): dry cracked fingertips. Wiill try westcort ointment Assessment & Plan (09/12/2021 12:15 PM EST): 09/12/2021 (age 15yr 11mo): Problem resolved, no meds needed. Assessment & Plan (06/21/2020 12:13 PM EST): 06/21/2020 (age 14 yr 8 mo): dry cracked fingertips. Wiill try westcort ointment Reaction to food 06/19/2020 06/24/2020 Overview (06/24/2020): 06/24/2020 (age 14 yr 8 mo): Seafood allergy ruled out by Dr. Hamilton (roof assembler) 01/2019. History: 12/02/2018: Rash on face and lip swelling after eating seafood (type not specified), Rx'ed orapred and epipen, referred to roof assembler. 02/05/2019: Saw Dr. Hamilton's office, seafood allergy ruled out. Assessment & Plan (06/21/2020 11:11 AM EST): 06/21/2020 (age 14 yr 8 mo): per she reports that she was told she didn't have seafood allergy by Dr. Hamilton. Await reports. She has also seen ENT (Jackie Major) ENT in [place]. Per pt planning to get allergy shots through ENT/ Records requested Constipation 06/19/2020 09/12/2021 Overview (09/12/2021): 09/12/2021 (age 15yr 11mo): Problem resolved, no issues. History 11/01/2018: Rx'ed miralax 1 scoop daily and lactulose 15 ml daily. 06/21/2020 (age 14 yr 8 mo): New pt today, history of constipation. Reports no current concerns. Assessment & Plan (09/12/2021 12:16 PM EST): 09/12/2021 (age 15yr 11mo): Problem resolved, no issues. Assessment & Plan (06/21/2020 12:16 PM EST): 06/21/2020 (age 14 yr 8 mo): New pt today, history of constipation. Reports no current concerns. Encounters Date Type Department Care Team Description 10/08/2024 8:33 AM EST - 10/08/2024 12:40 PM EST Hospital Encounter [facility] - Patient Ping 10/08/2024 Telephone [place] [place] [address] [place] [address] Susi Fuentes MD 21 letter 07/26/2024 10:52 PM EST - 07/27/2024 1:43 AM EST Hospital Encounter [facility] - Patient Ping 07/24/2024 Telephone [facility] [place] [address] [place] [address] Skyla Martin, OBSTETRICS TEACHER Cough 07/23/2024 4:00 PM EST Office Visit [facility] [address] [place] [address] Susi Fuentes MD Acute URI (Primary Dx); Encounter for laboratory testing for COVID-19 virus from Last 3 Months Immunizations Immunization Administration Dates Next Due COVID-19 Pfizer, monovalent, 12+ years 2,12/19/2020,11/28/2020 DTaP 12/20/2007, 5,03/28/2004,01/24,2003 HPV Vaccine 9 Valent 01/04/2018,01/11/2015 HPV, Quadrivalent 01/11/2015 Hep A, ped/adol 02/02/2011,01/31/2010 Hep B, ped/adol 03/28/2004,2003,2003 HiB 04/07/2005, 4,01/25/2004,11/30 IPV 12/20/2007, 5,03/28/2004,01/24,2003 Influenza, injectable, MDCK, preservative free, quadrivalent 05/18/2022 Influenza, injectable, quadr ivalent, preservative free 05/30/2023,06/07/2021,06/21/2020,06/01,04/12/2016 Influenza, injectable, trivalent 06/07/2021 Influenza, injectable, triva lent, preservative free 04/09/2024,04/12/2016 MMR 12/20/2007,09/27/2004 Meningococcal B Trumenba 08/23/2022,09/12/2021 Meningococcal Conj (Menactra) MCV4P 06/21/2020,0 01/11/2015 Meningococcal Polysaccharide 01/11/2015 Pneumococcal Conjugate 09/27/2004,2003,01/25/2004,11/30 Tdap 01/11/2015 Varicella 12/20/2007,09/27/2004 Family History Medical History Relation Name Comments Asthma Mother Kiesha Aguilar Relation Name Status Comments Father Edson Barton Alive Mother Kiesha Aguilar Alive Sister Ely Marvin Alive Social History Tobacco Use Types Packs/Day Years [...] Orientation Straight 09/12/2021 11 :58 AM EST Last Filed Vital Signs Vital Sign Reading Time Taken Comments Blood Pressure 119/71 07/23/2024 4:18 PM EST Pulse 72 07/23/2024 4:18 PM EST Temperature 37.6 ??C (99.6 ??F) 07/23/2024 4:18 PM ES T Respiratory Rate - - Oxygen Saturation 99% 07/23/2024 4:18 PM EST Inhaled Oxygen Concentration - - Weight 104 kg (229 lb 12.8 oz) 07/23/2024 4:18 P M EST Height 167.1 cm (5' 5.79 ) 01/02/2024 10:52 AM E DT Body Mass Index 37.33 01/02/2024 10:52 AM EDT Plan of Treatment Health Maintenance Due Date Last Done Comments HIV Screening 2018 Hepatitis C Screening 2021 COVID-19 Vaccine (6 - 2023-2 5 season) 2024 08/31/2023, 05/18/2022, 08/21/2021, Additional history exists Chlamydia and Gonorrhea Screening 08/13/2024 01/02/2024, 02/16/2023, 08/23/2022, Additional history exists DTaP,Tdap,and Td Vaccines (7 - Td or Tdap) 01/11/2025 01/11/2015, 12/20/2007, 04/07/2005, Additional history exists Hepatitis B Vaccines Completed 03/28/2004, 2003, 2003 Pneumococcal Vaccine Completed 09/27/2004, 03/28/2004, 01/25/2004, Additional history exists HIB Vaccines Completed 04/07/2005, 03/13, 01/25/2004, Additional history exists IPV Vaccines Completed 12/20/2007, 09/13, 03/28/2004, Additional history exists MMR Vaccines Completed 12/20/2007, 09/27/2004 Varicella Vaccines Completed 12/20/2007, 09/27/2004 Hepatitis A Vaccines Completed 02/02/2011, 02/01/20 10 HPV Vaccines Completed 01/04/2018, 08/2014, 01/11/2015 Meningococcal Vaccine Completed 06/21/2020, 015 Men B Vaccine Completed 08/23/2022, 09/12/2021 Influenza Vaccines Completed 04/09/2024, 1 , 05/18/2022, Additional history exists Procedures * Due to [facility] law, this organization might not be sharing sensitive test results. Procedure Name Priority Date/Time Associated Diagnosis Comments XR CHEST 2 VW Routine 07/29/2024 2:44 PM EST Cough POCT COVID-19, INFLUENZA, AND RSV NUCLEIC ACID (AMPLIFIED PROBE) Routine 07/23/2024 5:09 PM EST Encounter for laboratory testing for COVID-19 virus CHLAMYDIA AND GONORRHEA, AMPLIFIED Routine 01/02/2024 11:39 AM EDT Encounter for screening examination for chlamydial infection from Last 3 Months or Most Recently Relevant to Health Maintenance Results * Due to [facility] law, this organization might not be sharing sensitive test results. * X-ray chest 2 views (07/29/2024 2:44 PM EST) Anatomical Region Laterality Modality Body Radiographic Mignon ging us Denise Parr [employer] [employer] FE[employer]ER IMG XR PROCEDURES Final R esult * POCT COVID-19, Influenza, RSV Nucleic Acid (Amplified Probe) (07/23/2024 5:09 PM EST) SARS-COV-2 Nucleic Acid Molecular Negative Negative, Presumptive Negative, None Detected [facility] Influenza A Nucleic Acid Amplified Probe Negative Negative, Presumptive Negative, None Detected [facility] Influenza B Nucleic Acid Amplified Probe Negative Negative, None Detected, Not Detected [facility] RSV Nucleic Acid, POC Negative Negative, None Detected, Not Detected [facility] Nasopharyngeal Swab 07/23/20 5:09 PM EST Susi Fuentes MD POINT OF CARE TEST ORDERABLES Final Result [facility] [address] [place] [address] * Chlamydia and Gonorrhoea, Amplified (01/02/2024 11:39 AM EDT) C trach [facility] Negative Negative [facility] N gonorrhoeae [facility] Negative Negative [facility] Urine (Urine) 01/02/2024 11: 39 AM EDT 01/02/2024 Comment:UR Narrative [facility] - 01/04/2024 9:08 AM EDT Performed at: ??01 - [facility] [address], [address], [place], [place] ??[id number] Surgical Nurse: Austen Rooney MD, Phone: ??[phone] Susi Fuentes MD LAB MICROBIOLOGY - GENERAL OR DERABLES Final Result [facility] [address] [place] [address] from Last 3 Months or Most Recently Relevant to Health Maintenance Insurance [facility] COMM[employer]CIAL [facility] COMMERCIAL
--- OUTSIDE RECORDS SUMMARY | 2024-10-08 14:17 | XMS_ITS | Data Portability ---
Author Organization [place] - [facility], Allergy Address [address] [address] Assessment Encounter Date Assessment Date Assessment LastModified by Organization Details LastModified Time 05/28/2024 05/28/2024 Administered By: MICHELL Rao Use of Antihistamines: No If yes: Vial Test Change in medications: No If yes ? ? ? Increase in asthma symptoms No If yes, inhaler use: Reaction to last injections: No If yes: ? ? ? Allergy Symptoms: Other: ? ? ? Missed 1 week Dose Notes:? ? ?aware of vial test [email or web address] Not available 05/28/2024 16:25:05 06/25/2024 06/25/2024 Administered By: Dorinda Carter Use of Antihistamines: No If yes: Vial Test Yes Change in medications: No If yes ? ? ? Increase in asthma symptoms If yes, inhaler use: Reaction to last injections: No If yes: ? ? ? Allergy Symptoms: Other: ? ? ? Missed 1 week Dose Notes:? ? ? [email or web address] Not available 06/25/2024 17:25:35 07/31/2024 07/31/2024 Administered By: MICHELL Rao Use of Antihistamines: No If yes: Vial Test Change in medications: No If yes ? ? ? Increase in asthma symptoms If yes, inhaler use: Reaction to last injections: No If yes: ? ? ? Allergy Symptoms: Other: ? ? ? Missed 1 week Dose Notes:? ? ? [email or web address] Not available 07/31/2024 13:41:14 09/04/2024 09/04/2024 Visit With: MICHELL Rao Use of Antihistamines: No If yes: Vial Test Change in medications: No If yes ? ? ? Increase in asthma symptoms If yes, inhaler use: Reaction to last injections: No If yes: ? ? ? Allergy Symptoms: Other: ? ? ? Missed: Dose Aware of Vial Test Yes Notes:? ? ? [email or web address] Not available 09/04/2024 14:14:27 10/01/2024 10/01/2024 Visit With: Dorinda Carter Use of Antihistamines: No If yes: Vial Test Yes Change in medications: No If yes ? ? ? Increase in asthma symptoms If yes, inhaler use: Reaction to last injections: No If yes: ? ? ? Allergy Symptoms: Other: ? ? ? Missed: Dose Aware of Vial Test Notes:? ? ? [email or web address] Not available 10/01/2024 17:03:20 Plan of Treatment Reminders Order Date Submit Date Provider Last Modified By Organization Details Last Modified Time Details Appointments [facility]- Allergy f-up 6mon 2024 03:45P M VAN GUTIERREZ PA-C Not available Not available Not available Lab None recorded . Referral None recorded . Procedures None recorded . Surgeries None recorded . Imaging None recorded . Medication Orders None recorded . Patient TargetsNo targets recorded. Patient InstructionsNo instructions recorded. Reason for Referral None Reported. Problems Name Problem SNOMED Code Status Onset Date Resolution Date Notes Provider Name and Address Organization Details Recorded Time Bleeding from nose 330485310 Active 2020 Epistaxis ; Note: Date Diagnosed : 05/02/2021 3:27 PM (R04.0) Not Available [facility] 4 03:09:12 History of SARS-CoV- 2 [id number] Active 2022 Personal history of COVID-19; Note: Date Diagnosed : 3 1:53 PM (Z86.16) Not Available [facility] 4 03:09:12 Acute pharyngit is 412760811 Active 2019 Sore throat (acute) NOS; Note: Date Diagnosed : 12/16/2019 3:14 PM (J02.9) Not Available [facility] 4 03:09:11 Otalgia of left ear 7469691930 Active 2019 Otalgia, left ear; Note: Date Diagnosed : 04/26/2020 5:07 PM (H92.02) Not Available [facility] 4 03:09:11 Bilateral earache 658606280 Active 2019 Otalgia, bilateral ; Note: Date Diagnosed : 12/16/2019 3:14 PM (H92.03) Not Available [facility] 4 03:09:11 Posterior rhinorrhe a 76771435 Active 2021 Postnasal drip; Note: Date Diagnosed : 09/20/2021 2:35 PM (R09.82) Not Available [facility] 4 03:09:11 Allergic rhinitis 40488034 Active 2023 Allergic rhinitis: Due to other allergen; Note: Date Diagnosed : 08/31/2023 12:18 PM (477.8) Note: Date Diagnosed : 08/31/2023 12:18 PM (477.8) Allergi c rhinitis: Due to other allergen; Note: Date Diagnosed : 08/21/2023 1:41 PM (477.8) Note: Date Diagnosed : 08/21/2023 1:41 PM (477.8) ; Start Date : Allergi c rhinitis: Due to other allergen; Note: Date Diagnosed : 08/16/2023 12:52 PM (477.8) Note: Date Diagnosed : 08/16/2023 12:52 PM (477.8) ; Start Date : 4 Allergi c rhinitis: Due to other allergen; Note: Date Diagnosed : 3 11:43 AM (477.8) Note: Date Diagnosed : 3 11:43 AM (477.8) ; Start Date : 3 Allergi c rhinitis: Due to other allergen; Note: Date Diagnosed : 12:07 PM (477.8) Note: Date Diagnosed : 12:07 PM (477.8) ; Start Date : 3 Allergi c rhinitis: Due to other allergen; Note: Date Diagnosed : 07/17/2023 1:09 PM (477.8) Note: Date Diagnosed : 07/17/2023 1:09 PM (477.8) ; Start Date : Allergi c rhinitis: Due to other allergen; Note: Date Diagnosed : 1:15 PM (477.8) Note: Date Diagnosed : 1:15 PM (477.8) ; Start Date : Allergi c rhinitis: Due to other allergen; Note: Date Diagnosed : 10:08 AM (477.8) Note: Date Diagnosed : 10:08 AM (477.8) ; Start Date : Allergi c rhinitis: Due to other allergen; Note: Date Diagnosed : 3:06 PM (477.8) Note: Date Diagnosed : 3:06 PM (477.8) ; Start Date : Allergi c rhinitis: Due to other allergen; Note: Date Diagnosed : 10:18 AM (477.8) Note: Date Diagnosed : 10:18 AM (477.8) ; Start Date : Allergi c rhinitis: Due to other allergen; Note: Date Diagnosed : 05/08/2023 10:54 AM (477.8) Note: Date Diagnosed : 05/08/2023 10:54 AM (477.8) ; Start Date : Allergi c rhinitis: Due to other allergen; Note: Date Diagnosed : 04/18/2023 3:47 PM (477.8) Note: Date Diagnosed : 04/18/2023 3:47 PM (477.8) ; Start Date : Allergi c rhinitis: Due to other allergen; Note: Date Diagnosed : 04/05/2023 3:52 PM (477.8) Note: Date Diagnosed : 04/05/2023 3:52 PM (477.8) ; Start Date : Allergi c rhinitis: Due to other allergen; Note: Date Diagnosed : 03/15/2023 4:08 PM (477.8) Note: Date Diagnosed : 03/15/2023 4:08 PM (477.8) ; Start Date : Allergi c rhinitis: Due to other allergen; Note: Date Diagnosed : 02/28/2023 2:38 PM (477.8) Note: Date Diagnosed : 02/28/2023 2:38 PM (477.8) ; Start Date : Allergi c rhinitis: Due to other allergen; Note: Date Diagnosed : 02/14/2023 1:56 PM (477.8) Note: Date Diagnosed : 02/14/2023 1:56 PM (477.8) ; Start Date : Allergi c rhinitis: Due to other allergen; Note: Date Diagnosed : 01/23/2023 1:49 PM (477.8) Note: Date Diagnosed : 01/23/2023 1:49 PM (477.8) ; Start Date : Allergi c rhinitis: Due to other allergen; Note: Date Diagnosed : 01/09/2023 2:26 PM (477.8) Note: Date Diagnosed : 01/09/2023 2:26 PM (477.8) ; Start Date : Allergi c rhinitis: Due to other allergen; Note: Date Diagnosed : 12/12/2022 12:06 PM (477.8) Note: Date Diagnosed : 12/12/2022 12:06 PM (477.8) ; Start Date : Allergi c rhinitis: Due to other allergen; Note: Date Diagnosed : 11/28/2022 3:16 PM (477.8) Note: Date Diagnosed : 11/28/2022 3:16 PM (477.8) ; Start Date : Allergi c rhinitis: Due to other allergen; Note: Date Diagnosed : 11/01/2022 3:17 PM (477.8) Note: Date Diagnosed : 11/01/2022 3:17 PM (477.8) ; Start Date : Allergi c rhinitis: Due to other allergen; Note: Date Diagnosed : 08/24/2022 3:48 PM (477.8) Note: Date Diagnosed : 08/24/2022 3:48 PM (477.8) ; Start Date : 3 Allergi c rhinitis: Due to other allergen; Note: Date Diagnosed : 08/17/2022 1:25 PM (477.8) Note: Date Diagnosed : 08/17/2022 1:25 PM (477.8) ; Start Date : 3 Allergi c rhinitis: Due to other allergen; Note: Date Diagnosed : 2 2:32 PM (477.8) Not Not Available [facility] 4 01:19:40 Impacted cerumen in left ear [id number] 36745 Active 2019 Impacted cerumen, left ear; Note: Date Diagnosed : 04/26/2020 5:07 PM (H61.22) Not Available [facility] 4 03:09:10 Acute serous otitis media of right ear 79590842054 43480 Active 2019 Acute serous otitis media, right ear; Note: Date Diagnosed : 02/20/2020 4:14 PM (H65.01) Not Available [facility] 4 03:09:12 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 Other specified disorders of temporoma ndibular joint; Note: Date Diagnosed : 01/19/2020 10:51 AM (M26.69) Not Available [facility] 4 03:09:12 Abnormal auditory perceptio n 55970949 Active 2020 Other abnormal auditory perceptio ns, bilateral ; Note: Date Diagnosed : 12/01/2020 2:40 PM (H93.293) Not Available [facility] 4 03:09:12 Perennial allergic rhinitis 279661366 Active 2023 MICHELL BOGGS [address] [place] [address],[place] [address], [facility] [place], [phone] , [facility] - [facility] 4 13:57:50 Problem Notes None recorded. Procedures Surgical History Date Name Laterality Status Provider Name and Address Organization Details Recorded Time 10/01/19 25 Allergy Immunotherapy Injections completed MICHELL BOGGS [facility],[place] [address], [place], [address], [facility] - [facility] 10/01/2024 17:03:03 09/04/19 25 Allergy Immunotherapy Injections completed DUARTE MCMAHAN, RMA [address],[place] [address], [place], [address], [place] - [facility] 09/04/2024 14:14:21 07/31/20 24 Allergy Immunotherapy Injections completed DUARTE MISTRYC, RMA [address],[place] [address], [place], [address], [place] - [facility] 07/31/2024 13:41:09 06/25/20 24 Allergy Immunotherapy Injections completed DORINDA CARTER RMA [address],[place] [address] [place] [address], [phone], [place] - [facility] 06/25/2024 17:25:29 05/28/20 24 Allergy Immunotherapy Injections completed SPIKE CESAR RN [address],[place] [address] [place] [address], [address], [place] - [facility] 05/28/2024 16:24:38 04/30/20 24 Allergy Immunotherapy Injections completed DUARTE MCMAHAN RMA [address],[place] [address] [place] [address], [address], [place] - [facility] 04/30/2024 17:09:11 04/03/20 24 Allergy Immunotherapy Injections completed DORINDA CARTER RMA [address],[place] [address], [place], [address], [place] [facility] 04/03/2024 14:18:03 02/21/20 24 Allergy Immunotherapy Injections completed DUARTE MCMAHAN RMA [address],[place] [address], [place], [address], [place] [facility] 02/21/2024 14:26:06 01/16/20 24 Allergy Immunotherapy Injections completed DORINDA CARTER RMA [address],[place] [address], [place], [address], [place] [facility] 01/16/2024 13:58:23 Imaging Results None recorded. Procedure Notes None recorded. Medical Equipment None Reported. Medications Name Sig Start Date Stop Date Status Note LastModified by Organization Details LastModified Time metformin 500 mg tablet TAKE 1 TABLET BY MOUTH TWICE DAILY WITH MEALS active Not Available Not Available No t Available Augmentin 875 mg-125 mg tablet 2019 active Medicati on ID: [id number] D uration Value: 10 Prescri bed By Name: Dereck bright MD Brand Name: Augmenti n Send Method: E-Prescr ibed Sub s Allowed: subs OK Speci al Instruct ion: 1 po bid for 10 days Med icationG enericNa me: Augmenti n Not Available Not Available Not Available acetamino phen 325 mg tablet 2020 active Medicati on ID: [id number] B rand Name: acetamin ophen Se nd Method: E-Prescr ibed Sub s Allowed: subs OK Speci al Instruct ion: TK 2 TS PO Q 6 H PRF FEVER OR PN Medic ationGen ericName : acetamin ophen Not Available Not Available Not Available prednisol one sodium phosphate 15 mg/5 mL (3 mg/mL) oral solution 07/26 completed Medicati on ID: [id number] D uration Value: 10 Brand Name: predniso lone sodium phosphat e Send Method: E-Prescr ibed Sub s Allowed: subs OK Speci al Instruct ion: TK 20 ML PO QD FOR 5 DAYS THEN 10 ML QD FOR 3 DAYS THEN 5 ML QD FOR 2 DAYS . START 09/17/19 M edicatio nGeneric Name: predniso lone sodium phosphat e Not Available Not Available Not Available albuterol sulfate 2.5 mg/3 mL (0.083 %) solution for nebulizat ion 2020 active Medicati on ID: [id number] B rand Name: albutero l sulfate Send Method: E-Prescr ibed Sub s Allowed: subs OK Speci al Instruct ion: USE 1 VIAL VIA NEBULIZE R EVERY 4 HOURS NEEDED FOR WHEEZING OR SHORTNES S OF BREATH M edicatio nGeneric Name: albutero l sulfate Not Available Not Available Not Available loperamid e 2 mg capsule TAKE 1 CAPSULE BY MOUTH EVERY 6 HOURS NEEDED FOR LOOSE STOOLS active Not Available Not Available No t Available cetirizin e 10 mg tablet 09/13 completed Medicati on ID: [id number] D uration Value: 30 Brand Name: cetritu ne Send Method: E-Prescr ibed Sub s Allowed: subs OK Speci al Instruct ion: TK 1 T PO QD Medic ationGen ericName : cetirizi ne Not Available Not Available Not Available nystatin 100,000 unit/gram topical ointment APPLY TOPICALL Y TWICE DAILY FOR 7 DAYS active Not Available Not Available No t Available fluconazo le 150 mg tablet TAKE 1 TABLET BY MOUTH EVERY 3 DAYS FOR 3 DOSES active Not Available Not Available No t Available hydrocort isone 1 % topical ointment 03/15 completed Medicati on ID: [id number] D uration Value: 7 Brand Name: hydrocor tisone S end Method: E-Prescr ibed Sub s Allowed: subs OK Speci al Instruct ion: SANTA EXT AA BID Medi cationGe nericNam e: hydrocor tisone Not Available Not Available Not Available senna 8.6 mg tablet TAKE 1 TABLET BY MOUTH TWICE DAILY NEEDED FOR CONSTIPA TION active Not Available Not Available No t Available ibuprofen 200 mg capsule active Not Available Not Available Not Available topiramat e 25 mg tablet TAKE 1 TABLET BY MOUTH DAILY AT BEDTIME active Not Available Not Available No t Available fexofenad ine 180 mg tablet 1 tablet by mouth 2019 active Medicati on ID: [id number] D uration Value: 30 Prescri bed By Name: Dereck bright MD Brand Name: fexofena dine Adithya coto Method: E-Prescr ibed Sub s Allowed: subs OK Medic ationGen ericName : fexofena dine Not Available Not Available Not Available sulfameth oxazole 800 mg-trimet hoprim 160 mg tablet TAKE 1 TABLET BY MOUTH TWICE DAILY FOR 10 DAYS active Not Available Not Available No t Available bupropion HCl SR 100 mg tablet,12 hr sustained -release TAKE 1 TABLET BY MOUTH TWICE DAILY active Not Available Not Available No t Available lidocaine -prilocai ne 2.5 %-2.5 % topical cream Apply 1 as directed to skin single dose 09/13 completed Medicati on ID: [id number] D uration Value: 1 Brand Name: lidocain e-priloc lindanicanor coto Method: E-Prescr ibed Sub s Allowed: subs OK Speci al Instruct ion: Please bring to allergy test appoint Medicati onGeneri cName: lidocain e-priloc linda Not Available Not Available Not Available ciproflox acin 0.3 % eye drops 06/07 completed Medicati on ID: [id number] D uration Value: 7 Brand Name: ciproflo xacin HCl Send Method: E-Prescr ibed Sub s Allowed: subs OK Speci al Instruct ion: INSTILL 5 TO 7 DROPS INTO AFFECTED EAR BID Medi cationGe nericNam e: ciproflo xacin HCl Not Available Not Available Not Available pantopraz ole 40 mg tablet,de layed release TAKE 1 TABLET BY MOUTH DAILY active Not Available Not Available No t Available oseltamiv ir 75 mg capsule 09/13 completed Medicati on ID: [id number] D uration Value: 5 Brand Name: oseltami vir Send Method: E-Prescr ibed Sub s Allowed: subs OK Speci al Instruct ion: TK 1 C PO BID FOR 5 DAYS Med icationG enericNa me: oseltami vir Not Available Not Available Not Available fluoxetin e 20 mg tablet active Medicati on ID: [id number] B rand Name: fluoxeti ne Send Method: E-Prescr ibed Sub s Allowed: subs OK Medic ationGen ericName : fluoxeti ne Not Available Not Available Not Available polymyxin B sulfate 10,000 unit-trim ethoprim 1 mg/mL eye drops 2020 active Medicati on ID: [id number] B rand Name: polymyxi n B sulf-tri methopri m Send Method: E-Prescr ibed Sub s Allowed: subs OK Medic ationGen ericName : polymyxi n B sulf-tri methopri m Not Available Not Available Not Available monteluka st 10 mg tablet 05/02 completed Medicati on ID: [id number] B rand Name: monteluk ast Send Method: E-Prescr ibed Sub s Allowed: subs OK Medic ationGen ericName : monteluk ast Not Available Not Available Not Available bisacodyl 5 mg tablet,de layed release TAKE 3 TABLETS BY MOUTH 1 TIME DIRECTED active Not Available Not Available No t Available azelastin e 137 mcg (0.1 %) nasal spray 2019 active Medicati on ID: [id number] D uration Value: 30 Prescri bed By Name: YOHANNES Wilkinson nd Name: debbie nicanor Send Method: E-Prescr ibed Sub s Allowed: subs OK Speci al Instruct ion: 1 spray into each nostril BID Medi cationGe nericNam e: emilyclaystjocy vick Not Available Not Available Not Available polyethyl jessica glycol 3350 17 gram/dose oral powder DISSOLVE 17 GIVE IN 4 TO 8 OUNCES OF LIQUID THEN DRINK active Not Available Not Available No t Available albuterol sulfate HFA 90 mcg/actua tion aerosol inhaler INHALE 2 PUFFS BY MOUTH EVERY 4 HOURS NEEDED FOR WHEEZING active Not Available Not Available No t Available ondansetr on 4 mg disintegr ating tablet DISSOLVE 1 TABLET ON THE TONGUE EVERY 8 HOURS NEEDED FOR NAUSEA OR VOMITING active Not Available Not Available No t Available dicyclomi ne 10 mg capsule TAKE 1 CAPSULE BY MOUTH TWICE DAILY active Not Available Not Available No t Available loratadin e 10 mg tablet 05/02 completed Medicati on ID: [id number] B rand Name: loratadi ne Send Method: E-Prescr ibed Sub s Allowed: subs OK Medic ationGen ericName : loratadi ne Not Available Not Available Not Available lactulose 10 gram/15 mL oral solution 09/13 completed Medicati on ID: [id number] D uration Value: 90 Brand Name: lactulos e Send Method: E-Prescr ibed Sub s Allowed: subs OK Speci al Instruct ion: TK 15 ML PO QD Medic ationGen ericName : lactulos e Not Available Not Available Not Available Flovent HFA 44 mcg/actua tion aerosol inhaler 09/13 completed Medicati on ID: [id number] B rand Name: Flovent HFA Send Method: E-Prescr ibed Sub s Allowed: subs OK Speci al Instruct ion: INHALE 2 PUFFS BY MOUTH TWICE DAILY. RINSE MOUTH WITH WATER AFTER USE. DO NOT SWALLOW Medicati onGeneri cName: Flovent HFA Not Available Not Available Not Available magnesium gluconate 27 mg magnesium (500 mg) tablet 07/26 completed Medicati on ID: [id number] D uration Value: 30 Brand Name: susan mongeonarenetta e Send Method: E-Prescr ibed Sub s Allowed: subs OK Speci al Instruct ion: TK 08/14 T PO HS Medic Kg ericName : susan you e Not Available Not Available Not Available desvenlaf axine succinate ER 50 mg tablet,ex tended release 24 hr active Not Available Not Available Not Available desvenlaf axine succinate ER 100 mg tablet,ex tended release 24 hr active Not Available Not Available Not Available [facility] with Large Mask 2020 active Medicati on ID: [id number] B rand Name[place] [facility] [place] Method: E-Prescr ibed Sub s Allowed: subs OK Speci al Instruct ion: USE UTD Medi cationGe nericNam e: [facility] [place] Not Available Not Available Not Available EpiPen 2-Gilbert 0.3 mg/0.3 mL injection , auto-inje ctor Inject 1 pen injector intramus cularly single dose 2023 active Not Available Not Available Not Avai lable Flonase Allergy Relief 50 mcg/actua tion nasal spray,elizabeth pension [place] 2 spray into both nostrils once a day 2023 active Medicati on ID: [id number] D uration Value: 30 Brand Name: Flonase Allergy Relief S end Method: E-Prescr ibed Sub s Allowed: subs OK Medic ationGen ericName : Flonase Allergy Relief Not Available Not Available Not Available Paxlovid 300 mg (150 mg x 2)-100 mg tablets in a dose pack TK 2 NIRMATRE LVIR TS AND 1 RITONAVI R T TOGETHER PO BID FOR 5 DAYS active Not Available Not Available No t Available Vitals None Recorded Social History None recorded. Functional Status None recorded. Mental Status None recorded. Family History Nothing Reported. Medical History No medical history recorded. Gynecological HistoryNo gynecological history recorded. Obstetrics History GPAL:G 0 P 0 0 0 0 Past Encounters Encounter ID Performer Location Encounter Start Date Encounter Closed Date Diagnosis/Indication Diagnosis SNOMED-CT Code Diagnosis ICD10 Code Diagnosis Note [id number] DORINDA CARTER, RMA Allergy [address] [place] [address] 01/16/2024 13:32:35 01/16/2024 15:03:00 Perennial allergic rhinitis [id number] J30.89 [id number] [facility] Allergy [address] [facility],[address] [place] [address] 02/21/2024 14:02:18 02/21/2024 14:29:43 Perennial allergic rhinitis 089711798 J30.89 [id number] [facility] Allergy [address] [place] [address],[address] [place] [address] 04/03/2024 14:06:17 04/03/2024 16:27:17 Perennial allergic rhinitis 619115383 J30.89 Allergic rhinitis 765356 04 J30.89 J30.9 [id number] [facility] Allergy [address] [place] [address],[address] [place] [address] 04/30/2024 16:35:00 04/30/2024 17:13:51 Perennial allergic rhinitis 169689164 J30.89 [id number] SPIKE CES[employer] [address] [place] [address],[address] [place] [address] 05/28/2024 15:36:06 05/28/2024 16:25:25 Perennial allergic rhinitis [id number] J30.89 [id number] [facility] Allergy [address] [place] [address],[address] [place] [address] 06/25/2024 17:24:47 06/25/2024 17:27:37 Perennial allergic rhinitis 027255318 J30.89 [id number] [facility] Allergy 100 [facility],[address] [place] [address] 07/31/2024 13:40:27 07/31/2024 13:41:30 Perennial allergic rhinitis 743711217 J30.89 [id number] [facility] Allergy [address] [facility],[address] [place] [address] 09/04/2024 14:13:07 09/04/2024 14:14:46 Perennial allergic rhinitis 439983679 J30.89 [id number] [facility] Allergy 100 [facility] 100 [facility] [place] [address] 10/01/2024 16:41:06 10/01/2024 17:08:56 Perennial allergic rhinitis 899875907 J30.89 Health Concerns Section Related Observation LastModified by Organization Detai ls LastModified Time None Recorded Concern Status LastModified by Organization Details LastModified Time None Recorded Advance Directives Directive None Recorded Payers Encounter Date Sequence Insurance Name Policy Number Policy Becerra Covered Member ID Becerra Member ID Guarantor Name 05/28/2024 1 [facility] [id number] Leah S S Zhang Andrews [id number] Leah S Zhang Andrews 06/25/2024 1 [facility] [id number] Leah S S Zhang Andrews [id number] Leah S Zhang Andrews 07/31/2024 1 [facility] [id number] Leah S S Zhang Andrews [id number] Leah S Zhang Andrews 09/04/2024 1 [facility] [id number] Leah S S Zhang Andrews [id number] Leah S Zhang Andrews 09/04/2024 2 [place] [facility] [address] Leah S Zhang [id number] Leah S Zhang Andrews 10/01/2024 1 [facility] [id number] Leah S S Zhang Andrews [id number] Leah S Zhang Andrews 10/01/2024 2 [place] [facility] Leah S Zhang [id number] Leah S Zhang Andrews OBGyn Episode No OBEpisode recorded.
--- OUTSIDE RECORDS SUMMARY | 2024-10-08 14:17 | XMS_ITS | Encounter Summary ---
Author Organization [facility] Address [address] [place] [address] Phone Care Team Providers Care Mental Health Consultant Name Role Phone Unavailable Primary Care Provider Unavailabl e Reason for Visit * Reason Comments ED Admission Encounter Details Date Type Department Care Team ([facility] st Contact Info) Description 10/08/2024 8:33 AM EST - 10/08/2024 12:40 PM [facility] Hospital Encounter [facility] - Patient Ping Social History Tobacco Use Types Packs/Day Years [...] AM EST documented as of this encounter Medications at Time of Discharge Acetaminophen 325 MG capsule TK 2 TS PO Q 6 H PRF FEVER OR PN 0 albuterol HFA 108 (90 Base) MCG/ACT inhalerIndications: Mild intermittent asthma without complication Inhale 2 puffs every 4 (four) hours as needed for wheezing. 1 Units 4 04/09/20 25 buPROPion SR 100 MG 12 hr tablet Take 300 mg by mouth once. desvenlafaxine 100 MG 24 hr tablet 3 EPINEPHrine 0.3 MG/0.3ML injection syringe INJECT THE CONTENTS OF 1 PEN IN THE MUSCLE NEEDED 1 fluticasone 50 MCG/ACT nasal spray U 2 SPRAYS IEN ONCE D 0 ibuprofen 200 MG capsuleIndications: Sore throat Take 2 capsules (400 mg total) by mouth every 6 (six) hours as needed for pain or fever (For fever or pain). 120 capsule 4 Lactobacillus-Inuli n (Probiotic Digestive Support) capsuleIndications: Abdominal discomfort Take 1 capsule by mouth daily. 30 capsule 2 3 omeprazole 20 MG delayed-release capsuleIndications: Epigastric abdominal pain Take 1 capsule (20 mg total) by mouth daily. Take medicine one hour before eating. 30 capsule 1 3 ondansetron ODT 4 MG disintegrating tablet DISSOLVE 1 TABLET ON THE TONGUE EVERY 8 HOURS NEEDED FOR NAUSEA OR VOMITING 2 polyethylene glycol (MiraLax) 17 GM/SCOOP powderIndications:A bdominal discomfort Take 17 g by mouth daily. Stir and dissolve powder into 4 to 8 ounces of beverage and then drink. 765 g 1 4 Senna-Time 8.6 MG tablet TAKE 1 TABLET BY MOUTH TWICE DAILY NEEDED FOR CONSTIPATION Spacer/Aero-Holding Chambers (Vortex Valved Holding Chamber) deviceIndications:M ild intermittent asthma without complication 1 Device as needed (wheeze, cough). 1 each 4 topiramate 25 MG tablet Take 50 mg by mouth nightly. 4 ALBUTEROL IN USE 1 VIAL VIA NEBULIZER EVERY 4 HOURS NEEDED FOR WHEEZING OR SHORTNESS OF BREATH 1 09/12/19 22 documented as of this encounter Plan of Treatment Not on file documented as of this encounter Visit Diagnoses Not on filedocumented in this encounter
== END 2024-10-08 12:40 | disposition home or self-care (01) ==
PROVIDERS: Emergency Medicine; Physician Assistant Medical; Emergency Provider Emergency Medicine; PCP Pediatrics
DX: J18.8 Other pneumonia, unspecified organism (principal); R53.1 Weakness; R50.9 Fever, unspecified; R05.9 Cough, unspecified; Z79.899 Other long term (current) drug therapy; J45.909 Unspecified asthma, uncomplicated
CPT/HCPCS: 36415; 71046; 80048; 80076; 83735; 84702; 85025; 99283

== ENCOUNTER → 2024-10-08 08:46 | Outpatient (BNV) | payer OTHER, SELFPAY | PROVIDERS: PCP Pediatrics; Visit Provider Radiology Diagnostic Radiology | DX: J18.9 Pneumonia, unspecified organism (principal) | CPT/HCPCS: 71046 ==

== ENCOUNTER 2024-11-11 15:20 | Outpatient (AMB) | payer OTHER, SELFPAY ==
[2024-11-11 15:25] VITALS: BP 127/66; PULSE 62; TEMP 36.9; O2SAT 98; BMI 38.1
--- NOTE | 2024-11-11 15:25 | A.OFFPC_ITS ---
Vital Signs 11/11/24 15:25 Height 5 ft 6 in Weight 236 lb BMI 38.1 BP 127/66 Pulse 62 Pulse Source Pulse Oximeter Temp 98.5 F Temp Source Temporal Artery Scan Pulse Oximetry (%) 98 Oxygen Delivery Method Room Air Intake Visit Reasons: follow up Development Editor Required: No Accompanied by: Self / Same As Patient Allergies ENVIRONMENTAL Allergy (Unknown, Uncoded 11/11/24 16:01) RASH seasonal Allergy (Unknown, Uncoded 11/11/24 16:01) unknown Medication List - Last Reconciled 11/11/24 by Bharati Hill PA-C acetaminophen (Tylenol) 975 mg (3 x 325 mg) PO Q6H PRN albuterol sulfate 90 mcg/actuation 2 puffs inhalation Q4-6H PRN albuterol sulfate 2.5 mg inhalation Q4H PRN epinephrine IM polyethylene glycol 3350 grams PO sennosides (senna) 8.6 mg PO BID PRN Tobacco use date assessed: 11/11/24 Dental Screening Dental Screen Date: 11/11/24 Did you have a dental visit in the last 12 months?: Yes Did you have a dental problem in the last 6 months where you did not have access to dental care?: No [facility] Medical History (Updated 11/11/24 @ 17:07 by Bharati Hill PA-C) Class 2 obesity with body mass index (BMI) of 38.0 to 38.9 in adult Anemia Anxiety Joint swelling Joint pain Abnormal nipple Rash Lactose intolerance IBS (irritable bowel syndrome) Establishing care with new doctor, encounter for Leaking of urine Dysmenorrhea Asthma Family History (Updated 11/11/24 @ 15:27 by MICHELL Garcia) Mother No problems noted. Father No problems noted. Social History Housing: House Alcohol intake: never Patient Tobacco Use Status: Never used Tobacco service: No Current occupational status: employed and student Gender identity: Female Cognitive needs: No Hearing needs: No Vision needs: Yes (rx contacts/ glasses) Female Reproductive History Menstrual Age of Menarche: 11 Questionnaire PHQ-9 Over the last 2 weeks, how often have you been bothered by any of the following problems? 1. Little interest or pleasure in doing things: not at all 2. Feeling down, depressed, or hopeless: not at all 3. Trouble falling or staying asleep, or sleeping too much: not at all 4. Feeling tired or having little energy: not at all 5. Poor appetite or overeating: more than half the days 6. Feeling bad about yourself - or that you are a failure or have let yourself or your family down: not at all 7. Trouble concentrating on things, such as reading the newspaper or watching television: several days 8. Moving or speaking so slowly that other people could have noticed. Or the opposite - being so fidgety or restless that you have been moving around a lot more than usual: not at all 9. Thoughts that you would be better off or of hurting yourself in some way: not at all Total score: 3 Depression Screening Interpretation: Negative Depression Screening Done: Yes 25680 - PHQ-9 Billing: Yes Source: Developed by Drs. Dereck Rajput, Porsche Silva, Logan Saxena and colleagues, with an educational ayah from [employer] Thrive Questionnaire Date Thrive assessed: 11/11/24 I am a: Patient What is your living situation today?: I have a steady place to live Within the past 12 months, did the food you bought not last and you didn't have the money to get more?: Never true Within the past 12 months, did you worry whether your food would run out before you got money to buy more?: Never true Do you have trouble paying for medicines?: Yes Do you have trouble getting transportation to medical appointments?: No Do you have trouble paying your heating and electricity bill?: No Do you have trouble taking care of your child, family member or friend?: No Do you have trouble with day-to-day activities such as bathing, preparing meals, shopping, managing finances, etc.?: No Are you currently unemployed and looking for a job?: No Are you interested in more education?: No Please select the resources that you would like help with: None THRIVE Score: 0 AUDIT C Alcohol Use Questionnaire (AUDIT-C) 1. How often do you have a drink containing alcohol?: Never 3. How often do you have six or more drinks on one occasion?: Never Total Score: 0 Score Reviewed/Action Taken: No CHEYENNE-7 AMB Questionnaire CHEYENNE-7 Date CHEYENNE - 7 assessed: 11/11/24 Feeling nervous, anxious, or on edge: 1 = Several days Not being able to stop or control worryin = Not at all Worrying too much about different things: 0 = Not at all Trouble relaxin = Not at all Being so restless that it is hard to sit still: 0 = Not at all Becoming easily annoyed or irritable: 0 = Not at all Feeling afraid as if something awful might happen: 0 = Not at all Total CHEYENNE-7 score (0-4 normal; 5-9 mild; 10-14 moderate; 15-21 severe): 1 Source: Developed by Drs. Dereck Rajput, Porsche Silva, Logan Saxena and colleagues, with an educational ayah from [employer] CHEYENNE-7 Assessment Billing CHEYENNE-7 Assessment Tool: CHEYENNE-7 Assessment 83051 Physical exam (Primary Care) Vital Signs: Last Vital Signs Temp 98.5 F 11/11/24 15:25 Pulse 62 11/11/24 15:25 BP 127/66 11/11/24 15:25 Pulse Ox 98 11/11/24 15:25 Oxygen Delivery Method Room Air 11/11/24 15:25 Care Plan Goal for BP management: <130/80 at Goal BMI result Body Mass Index 38.1 BMI Assessment/Plan discussion: High BMI High, discussed plan: lifestyle, weight reduction, dietary, physical activity and alcohol moderation Tobacco/Smoking Status: Tobacco use Status Tobacco use date assessed 11/11/24 11/11/24 15:38 Patient Tobacco Use Status Never used Tobacco 11/11/24 15:38 PHQ-9: PHQ-9 Score PHQ-9: Total score 3 11/11/24 15:38 Depression Screening Interpretation: Negative Thrive Assessment: Date of Thrive Assessment Date Thrive assessed 11/11/24 11/11/24 15:38 Coding Level of Care Code New Pt Level 4 (17165) Complex EM visit Add On G2211 Diagnoses Establishing care with new doctor, encounter for Z76.89 Asthma J45.909 Leaking of urine R32 IBS (irritable bowel syndrome) K58.9 Lactose intolerance E73.9 Rash R21 Abnormal nipple N64.9 Joint pain M25.50 Joint swelling M25.40 Anxiety F41.9 Anemia D64.9 Class 2 obesity with body mass index (BMI) of 38.0 to 38.9 in adult E66.812; Z68.38 Additional Codes PHQ-9 - 72223 - PHQ-9 Billing: Yes ([id number]) CHEYENNE-7 Assessment Billing - CHEYENNE-7 Assessment Tool: CHEYENNE-7 Assessment 77986 ([id number]) Assessment & Plan Assessment & Plan (1) Establishing care with new doctor, encounter for: Code(s): Z76.89 - Persons encountering health services in other specified circumstances Category: Medical (2) Asthma: Code(s): J45.909 - Unspecified asthma, uncomplicated Category: Medical Plan: Maintain current regimen; albuterol inhaler available. (3) Leaking of urine: Code(s): R32 - Unspecified urinary incontinence Category: Medical Plan: A urology referral initiated to address physical activity-related urinary incontinence. (4) IBS (irritable bowel syndrome): Code(s): K58.9 - Irritable bowel syndrome, unspecified Category: Medical Plan: Continued management through diet; follow-up with gastroenterology. (5) Lactose intolerance: Code(s): E73.9 - Lactose intolerance, unspecified Category: Medical Plan: Ongoing dietary management to prevent symptoms. (6) Rash: Code(s): R21 - Rash and other nonspecific skin eruption Category: Medical Plan: Referral to dermatology for the recurrent, itchy breast rash after initial hydrocortisone ointment application. (7) Abnormal nipple: Code(s): N64.9 - Disorder of breast, unspecified Category: Medical Plan: Referral to dermatology for the recurrent, itchy breast rash after initial hydrocortisone ointment application. (8) Joint pain: Code(s): M25.50 - Pain in unspecified joint Category: Medical Plan: Testing for potential rheumatoid conditions given family history and symptoms. (9) Joint swelling: Code(s): M25.40 - Effusion, unspecified joint Category: Medical Plan: Testing for potential rheumatoid conditions given family history and symptoms. (10) Anxiety: Code(s): F41.9 - Anxiety disorder, unspecified Category: Medical Plan: Non-pharmacologic management; monitoring for exacerbation, especially with academic stress. (11) Anemia: Code(s): D64.9 - Anemia, unspecified Category: Medical Plan: Monitoring for symptoms; dietary iron adjustments if necessitated by follow-up labs. (12) Class 2 obesity with body mass index (BMI) of 38.0 to 38.9 in adult: Code(s): E66.812 - Obesity, class 2; Z68.38 - Body mass index [BMI] 38.0-38.9, adult Category: Medical Plan: Patient to improve her diet and exercise regimen. Condition is chronic and stable continue to monitor. Plan Plan Patient was informed and verbally consented to the use of an ambient scribe for clinic note documentation during this visit. 1. Asthma Maintain current regimen; albuterol inhaler available. 2. Rash On Breast Referral to dermatology for the recurrent, itchy breast rash after initial hydrocortisone ointment application. 3. Irritable Bowel Syndrome Ibs Continued management through diet; follow-up with gastroenterology. 4. Urinary Incontinence A urology referral initiated to address physical activity-related urinary incontinence. 5. Joint Pain And Swelling Testing for potential rheumatoid conditions given family history and symptoms. 6. Lactose Intolerance Ongoing dietary management to prevent symptoms. 7. Anxiety Non-pharmacologic management; monitoring for exacerbation, especially with academic stress. 8. Anemia Monitoring for symptoms; dietary iron adjustments if necessitated by follow-up labs. Discussion Notes I discussed the management of urinary incontinence with the patient, emphasizing the importance of seeing a urologist to establish a specific treatment plan. A referral to dermatology was provided for her rash to ensure a comprehensive assessment and appropriate intervention. We reviewed her current use of an albuterol inhaler on an as-needed basis for asthma management. The patient is currently opting for non-pharmacologic approaches to anxiety, managing primarily through lifestyle adjustments and exercise while monitoring condition severity. Evaluations for anemia and possible rheumatoid conditions were discussed, potentially attributable to her familial medical background. We agreed on follow-up strategies, including watching for any exacerbation in symptoms or conditions across discussed health aspects. I advised on lifestyle modifications beneficial across the spectrum of her current health concerns, and she consented to the planned interventions. Orders: Orders C Reactive Protein Today Z00.00 - Encounter for general adult medical examination without abnormal findings Complete Blood Count Auto Diff Today Z00.00 - Encounter for general adult medical examination without abnormal findings Erythrocyte Sedimentation Rate Today Z00.00 - Encounter for general adult medical examination without abnormal findings Magnesium Today Z00.00 - Encounter for general adult medical examination without abnormal findings Vitamin D 25-OH Total Today Z00.00 - Encounter for general adult medical examination without abnormal findings Vitamin B12 and Folate Today Z00.00 - Encounter for general adult medical examination without abnormal findings Phosphorus Today Z00.00 - Encounter for general adult medical examination without abnormal findings Prolactin Today Z00.00 - Encounter for general adult medical examination without abnormal findings Progesterone Today Z00.00 - Encounter for general adult medical examination without abnormal findings Ferritin Today D64.9 - Anemia, unspecified IRON PROFILE Today D64.9 - Anemia, unspecified KIM Reflex Titer and Pattern Today M25.40 - Effusion, unspecified joint, M25.50 - Pain in unspecified joint Rheumatoid Factor Today M25.40 - Effusion, unspecified joint, M25.50 - Pain in unspecified joint Comprehensive [place]. Panel Fast Today Z00.00 - Encounter for general adult medical examination without abnormal findings Hemoglobin A1c Today Z00.00 - Encounter for general adult medical examination without abnormal findings Lipid Panel Today Z00.00 - Encounter for general adult medical examination without abnormal findings Liver Panel Today Z00.00 - Encounter for general adult medical examination without abnormal findings TSH reflex Free T4 Today Z00.00 - Encounter for general adult medical examination without abnormal findings Parathyroid Hormone Intact Today Z00.00 - Encounter for general adult medical examination without abnormal findings Estrogen Today Z00.00 - Encounter for general adult medical examination without abnormal findings H pylori Ag Stool Today R10.9 - Unspecified abdominal pain Referrals Dermatology Referral N64.9 - Disorder of breast, unspecified, R21 - Rash and other nonspecific skin eruption Urology Referral R32 - Unspecified urinary incontinence Medications: New hydrocortisone 2.5% 1 appl topical BID-TID PRN 454 grams 1RF itching Patient Instructions: Patient Instructions - Follow up with the urology consultation to address urinary incontinence. - Apply hydrocortisone ointment to the breast rash as directed, and attend the dermatology referral. - Continue using albuterol inhaler for asthma management as needed. - Maintain current dietary adjustments to manage IBS and lactose intolerance. - Monitor for any new symptoms related to joint pain or swelling. - Consider scheduling a follow-up for a blood work review, particularly if advised for anemia or potential rheumatoid assessments. - Maintain regular physical activity and possibly incorporate mindfulness practices to help manage anxiety. Scribe Plan - Not visible on output: History of Present Illness The patient is a 19-year-old female presenting with urinary incontinence and a rash on the breast. The urinary incontinence primarily occurs during physical activity, noticed after a considerable change in weight attributed to prior anxiety medication use. Management attempts include Kegel exercises. 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 Additionally, her medical history comprises asthma managed with an inhaler, IBS, and lactose intolerance. She previously experienced mild anemia, documented in recent lab work. There is a familial history of arthritis and lupus, with patient-reported joint pain and swelling. 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 [employer] - Previously experienced significant weight changes associated with medication use - Engages in regular exercise such as running and jogging - Manages diet to address IBS and lactose intolerance - Denies smoking, alcohol, and drug use - Reports being sexually active Review of Systems - General: Denies weight loss - Dermatologic: Reports rash on the breast, with itchiness - Genitourinary: Reports urinary incontinence during physical activities - Gastrointestinal: Denies recent constipation; mentions IBS management - Respiratory: Reports asthma with inhaler use as needed - Musculoskeletal: Reports joint pain and swelling Physical Exam Appearance: Alert. Oriented X3. No acute distress. Head: Normal external exam. Normocephalic. Atraumatic. Eyes: Pupils are equal, round, and reactive to light. Extraocular movements intact. Conjunctiva and sclera normal. Eyelids normal. Ears: External auditory canal normal. Tympanic membranes normal. Throat: Pharynx normal. Uvula midline. Moist mucous membranes. Breast: No lumps or lesions noted although patient has dried dermatitis/eczema to the nipples. No drainage from the nipples noted or inversion of the nipples or abnormalities. No signs of acute cellulitis infection. Neck: Normal inspection. Neck supple. Full range of motion. No adenopathy. Thyroid Normal. No meningeal signs. No neck mass noted. Cardiovascular: Normal heart rate and rhythm. Heart sound normal. No murmurs noted. Pulses normal throughout. Respiratory: No respiratory distress. Painless inspiration. Breath sounds normal. No wheezes/rales/rhonchi noted. Chest nontender. No accessory muscle usage noted or decreased air movement noted. Abdomen: Soft and nontender. Bowel sounds normal in all 4 quadrants. No distention noted. No organomegaly noted. No visible injury noted. Back: No costovertebral angle tenderness. Full range of motion noted. Skin: Skin warm and dry. Normal skin color. Normal skin turgor. No rashes/lesions/lacerations noted. (Note: Patient reports rash on breast, referred to dermatology, hydrocortisone ointment prescribed.) Extremities: No lower extremity edema. Extremities exhibit normal range of motion. Extremities nontender. (Note: Patient reports leg swelling, possibly due to standing for long periods.) Neuro: Oriented X 3. No motor deficit. No sensory deficit. Reflexes normal. Results - Labs: Hemoglobin 11.4 g/dL, Hematocrit 35.0%, indicating mild anemia
--- OUTSIDE RECORDS SUMMARY | 2024-11-11 18:11 | XMS_ITS | Clinical Summary ---
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 Discussed BC options, dysmenorrhea [place] options. Will use ibuprofen. Was not Rx'd BC. Assessment & Plan (01/02/2024 11:29 AM EDT): 01/02/2024 (age 18yr): Followed by [facility] + Anxiety 04/24/2023 Overview (01/04/2024): 04/24/23 - Pt's anxiety has increased due to discontinuing medication and recent break-up with her boyfriend. Is having difficulty with focus at school. 05/01/23 - Pt is accepting the break-up and feels that her emotions are still there, but more manageable. She has contacted [facility] and plans to follow-up there. She did not schedule a follow-up with [facility], but will follow-up with PCP. [facility] invited her to return of needed. 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 Patient will benefit from support in managing her anxiety, accepting/ mourning recent loss, and follow-up with PCP around medication - Pt to see [facility] briefly and bridge to [facility] (pt to contact and connect). 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 Patient will benefit from support in managing her anxiety, accepting/ mourning recent loss, and follow-up with PCP around medication - Pt to see [facility] briefly and bridge to [facility] (pt to contact and connect). PLAN: Follow up with [facility] briefly and bridge to outpatient services Patient [...] eating. 03/16/[address] done at [facility] 04/09/2024 (age 18yr): History consistent with [...] - Recommend ADHD kailash, gave number for [facility] [phone], [employer] - has extra help at school - [...] gets mood swings. 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 Had stopped med and restarted 04/24/2023. 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 Currently 20 mg dose. Anxiety and depression have been alleviated significantly. . 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 Was sleeping a a lot and cried sometimes. Binge eats and weight has been fluctuating over time (see problem). Had been followed by Lucy Nieto [facility] but still having issues with insurance. - Continue fluoxetine 20 mg - Try to get counseling through school - follow up 2-3 months. Assessment & Plan (11/21/2022 4:39 PM EDT): 11/21/2022 (age 17yr):Followed by Lucy Nieto [facility] but still having issues with insurance. . 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 PLAN: Follow up with [facility] 3 weeks Patient goal is to identify [...] future goals. PLAN: 1. Follow up with [facility] 2 weeks 2. Patient goal is to [...] future goals. PLAN: 1. Follow up with [facility] 2 weeks 2. Patient goal is to [...] gets mood swings. 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 02/05/2019: Saw Dr. Hamilton's office, diagnosed with [...] specified), Rx'ed orapred and epipen, referred to [facility]. 02/05/2019: Saw Dr. Hamilton's office, note in records not readable. mg and zyrtec 10 mg today. Chronic pharyngitis 06/19/2020 Overview (09/12/2021): 09/12/2021 (age 15yr 11mo): Followed by ENT for this now ([address] Detailed History and Chronology of care: Treated at [facility] for recurrent strep, never diagnosed in records [...] have excessive wax. ENT (Jackie Major) in [place]. Will monitor for recurrent pharyngitis. History: Treated at [facility] for recurrent strep, never diagnosed in records [...] Seafood allergy ruled out by Dr. Hamilton ([facility]) 01/2019. History: 12/02/2018: Rash on face and lip swelling after eating seafood (type not specified), Rx'ed orapred and epipen, referred to [facility]. 02/05/2019: Saw Dr. Hamilton's office, seafood allergy ruled out. Assessment & Plan (06/21/2020 11:11 AM EST): 06/21/2020 (age 14 yr 8 mo): per she reports that she was told she didn't have seafood allergy by Dr. Hamilton. Await reports. She has also seen ENT (Jackie Major) ENT in [place]. Per pt planning to get allergy shots [...] - 10/08/2024 12:40 PM EST Hospital Encounter [facility] - Patient Ping 10/08/2024 Telephone [facility] [address] [place] [address] Susi Fuentes MD 21 letter from Last 3 Months Immunizations Immunization Administration [...] Health Maintenance Due Date Last Done Comments COVID-19 Vaccine (2023-2 5 season) 2024 08/31/2023, 05/18/2022, 08/21/2021, Additional history exists DTaP,Tdap,and Td Vaccines (7 [...] 02/02/2011, 02/01/20 10 HPV Vaccines Completed 01/04/2018, 06/08/2014, 01/11/2015 Meningococcal Vaccine Completed 06/21/2020, 015 Men B Vaccine Completed 08/23/2022, 09/12/2021 Influenza Vaccines Completed 04/09/2024, 1 , 05/18/2022, Additional history exists Procedures * Due to [place] state law, this organization might not be sharing sensitive test results. Procedure Name Priority Date/Time Associated Diagnosis Comments CHLAMYDIA AND GONORRHEA, AMPLIFIED Routine 01/02/2024 11:39 AM EDT Encounter for screening examination for chlamydial infection from Last 3 Months or Most Recently Relevant to Health Maintenance Results * Due to [place] state law, this organization might not be sharing sensitive test results. * Chlamydia and Gonorrhoea, Amplified (01/02/2024 11:39 AM EDT) C trach CHUY Negative Negative [facility] N gonorrhoeae CHUY Negative Negative [facility] Urine (Urine) 01/02/2024 11: 39 AM EDT 01/02/2024 Comment:UR Narrative [facility] - 01/04/2024 9:08 AM EDT Performed at: ??01 - [facility] [address], [address], [place], [place] ??[id number] Icing Mixer: Austen Rooney MD, Phone: ??[phone] Susi Fuentes MD LAB MICROBIOLOGY - GENERAL OR DERABLES Final Result Performing Organization Address City/State/[facility] Co de Phone Number [facility] [address] [place] [address] from Last 3 Months or Most Recently Relevant to Health Maintenance Insurance [facility] [place] [place] [address] COMMERCIAL
--- OUTSIDE RECORDS SUMMARY | 2024-11-11 18:12 | XMS_ITS | Data Portability ---
Author Organization [place] [facility], Allergy Address [address] [address] Assessment Encounter Date Assessment Date Assessment LastModified by Organization Details LastModified Time 06/25/2024 06/25/2024 Administered By: Dorinda Carter Use of Antihistamines: No If yes: Vial Test Yes Change in medications: No If yes ? ? ? Increase in asthma symptoms If yes, inhaler use: Reaction to last injections: No If yes: ? ? ? Allergy Symptoms: Other: ? ? ? Missed 1 week Dose Notes:? ? ? [email or web address] Not available 06/25/2024 17:25:35 07/31/2024 07/31/2024 Administered [...] Aware of Vial Test Notes:? ? ? [email or web address] Not available 10/01/2024 17:03:20 10/29/2024 10/29/2024 Visit With: MICHELL Rao Use of Antihistamines: No If yes: Vial Test Change in medications: No If yes ? ? ? Increase in asthma symptoms If yes, inhaler use: Reaction to last injections: No If yes: ? ? ? Allergy Symptoms: Other: ? ? ? Missed: Dose Aware of Vial Test Notes:? ? ? arenc Not available 10/29/2024 15:36:12 Plan of Treatment Reminders Order Date Submit Date Provider Last Modified By Organization Details Last Modified Time Details [facility]:00P Shahbaz GUTIERREZ PA-C Not available Not available Not [...] Organization Details Recorded Time Bleeding from nose 788987648 Active 2020 Epistaxis ; Note: Date Diagnosed : 05/02/2021 3:27 PM (R04.0) Not Available [facility] 4 03:09:12 History of SARS-CoV- 2 [id number] Active 2022 Personal history of COVID-19; Note: Date Diagnosed : 3 1:53 PM (Z86.16) Not Available [facility] 4 03:09:12 Acute pharyngit is 848099697 Active 2019 Sore throat (acute) NOS; Note: Date Diagnosed : 12/16/2019 3:14 PM (J02.9) Not Available [facility] 4 03:09:11 Otalgia of left ear 3059979953 Active 2019 Otalgia, left ear; Note: Date Diagnosed : 04/26/2020 5:07 PM (H92.02) Not Available [facility] 4 03:09:11 Bilateral earache 797554515 Active 2019 Otalgia, bilateral ; Note: Date Diagnosed : 12/16/2019 3:14 PM (H92.03) Not Available [facility] 4 03:09:11 Posterior rhinorrhe a 54383573 Active 2021 Postnasal drip; Note: Date Diagnosed : 09/20/2021 2:35 PM (R09.82) Not Available [facility] 4 03:09:11 Allergic rhinitis 77975023 Active 2023 Allergic rhinitis: Due to other allergen; Note: Date Diagnosed : 08/31/2023 12:18 PM (477.8) Note: Date Diagnosed : 08/31/2023 12:18 PM (477.8) Allergi c rhinitis: Due to other allergen; Note: Date Diagnosed : 08/21/2023 1:41 PM (477.8) Note: Date Diagnosed : 08/21/2023 1:41 PM (477.8) ; Start Date : 4 Allergi c rhinitis: Due to other allergen; Note: Date Diagnosed : 08/16/2023 12:52 PM (477.8) Note: Date Diagnosed : 08/16/2023 12:52 PM (477.8) ; Start Date : Allergi [...] 1:09 PM (477.8) ; Start Date : 3 [...] 3:47 PM (477.8) ; Start Date : 3 Allergi c rhinitis: Due to other allergen; Note: Date Diagnosed : 04/05/2023 3:52 PM (477.8) Note: Date Diagnosed : 04/05/2023 3:52 PM (477.8) ; Start Date : 3 [...] 2 2:32 PM (477.8) Not Not Available [facility] 4 01:19:40 Impacted cerumen in left ear [id number] 11661 Active 2019 Impacted cerumen, left ear; Note: Date Diagnosed : 04/26/2020 5:07 PM (H61.22) Not Available [facility] 4 03:09:10 Acute serous otitis media of right ear [id number] 97462 Active 2019 Acute serous otitis media, right ear; Note: Date Diagnosed : 02/20/2020 4:14 PM (H65.01) Not Available [facility] 4 03:09:12 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 2019 Other specified disorders of temporoma ndibular joint; Note: Date Diagnosed : 01/19/2020 10:51 AM (M26.69) Not Available [facility] 4 03:09:12 Abnormal auditory perceptio n 19467729 Active 2020 Other abnormal auditory perceptio ns, bilateral ; Note: Date Diagnosed : 12/01/2020 2:40 PM (H93.293) Not Available [facility] 4 03:09:12 Perennial allergic rhinitis 264528789 Active [address],[place] [address], [place], [address] , [facility] 4 13:57:50 Problem Notes None recorded. Procedures Surgical History Date Name Laterality Status Provider Name and Address Organization Details Recorded Time 10/30/19 25 Allergy Immunotherapy Injections completed DUARTE MCMAHAN ON LICENSE OF [facility] [address] [facility],[place] [address], [place], [address], [place] [facility] 10/29/2024 15:35:01 10/01/19 25 Allergy Immunotherapy Injections completed MICHELL BOGGS [address],[place] [address], [place], [address], [place] [facility] 10/01/2024 17:03:03 09/04/19 25 Allergy Immunotherapy Injections completed DUARTE MCMAHAN, RMA [address], [place], [address], [place] [facility] 09/04/2024 14:14:21 07/31/20 24 Allergy Immunotherapy Injections completed DUARTE MCMAHAN, RMA [address], [place], [address], [place] [facility] 07/31/2024 13:41:09 06/25/20 24 Allergy Immunotherapy Injections completed DORINDA CARTER RMA [address], [place], [address], [place] [facility] 06/25/2024 17:25:29 05/28/20 24 Allergy Immunotherapy Injections completed SPIKE CESAR RN [address], [place], [address], [place] [facility] 05/28/2024 16:24:38 04/30/20 24 Allergy Immunotherapy Injections completed DUARET MCMAHAN, RMA [address],[place] [address], [place], [address], [place] [facility] 04/30/2024 17:09:11 04/03/20 24 Allergy Immunotherapy Injections completed DORINDA CARTER RMA [address], [place], [address], [place] [facility] 04/03/2024 14:18:03 02/21/20 24 Allergy Immunotherapy Injections completed DUARTE MCMAHAN RMA [address],[place] [address], [place], [address], [place] [facility] 02/21/2024 14:26:06 01/16/20 24 Allergy Immunotherapy Injections completed DORINDA CARTER RMA [address], [place], [address], [facility] - [facility] 01/16/2024 13:58:23 Imaging Results None recorded. Procedure Notes None recorded. Medical Equipment None Reported. Medications Name Sig Start Date Stop Date Status Note LastModified by Organization Details LastModified Time metformin 500 mg tablet TAKE 1 TABLET BY MOUTH TWICE DAILY WITH MEALS active Not Available Not Available No t Available Augmentin 875 mg-125 mg tablet 2019 active Medicati on ID: [id number] D uration Value: 10 Prescri bed By Name: Dereck bright MD Brand Name: Augmenti n Send Method: E-Prescr ibed Sub s Allowed: subs OK Speci al Instruct ion: 1 po bid for 10 days Med icationG enericNa me: Augmenti n Not Available Not Available Not Available acetamino phen 325 mg tablet 2020 active Medicati on ID: [id number] B rand Name: acetamin ophen Se nd Method: E-Prescr ibed Sub s Allowed: subs OK Speci al Instruct ion: TK 2 TS PO Q 6 H PRF FEVER OR PN Medic ationGen ericName : acetamin ophen Not Available Not Available Not Available prednisol one sodium phosphate 15 mg/5 mL (3 mg/mL) oral solution 07/26 completed Medicati on ID: [id number] D uration Value: 10 Brand Name: predniso [...] nebulizat ion 2020 active Medicati on ID: [id number] B rand Name: albutero l sulfate Send [...] mg tablet 09/13 completed Medicati on ID: [id number] D uration Value: 30 Brand Name: cetirizi ne Send Method: E-Prescr ibed Sub s [...] topical ointment 03/15 completed Medicati on ID: [id number] D uration Value: 7 Brand Name: hydrocor [...] by mouth 2019 active Medicati on ID: [id number] D uration Value: 30 Prescri bed By Name: Dereck bright MD Brand Name: fexofena dine Sen d Method: E-Prescr ibed Sub s [...] single dose 09/13 completed Medicati on ID: [id number] D uration Value: 1 Brand Name: lidocain e-priloc linda Sen d Method: E-Prescr ibed Sub s Allowed: subs OK Speci al Instruct ion: Please bring to allergy test appoint Medicati onGeneri cName: lidocain e-priloc linda Not Available Not Available Not Available ciproflox acin 0.3 % eye drops 06/07 completed Medicati on ID: [id number] D uration Value: 7 Brand Name: ciproflo [...] mg capsule 09/13 completed Medicati on ID: [id number] D uration Value: 5 Brand Name: oseltami vir Send Method: E-Prescr ibed Sub s Allowed: subs OK Speci al Instruct ion: TK 1 C PO BID FOR 5 DAYS [facility] osel[facility]ami [facility] Not Available Not Available Not Available fluoxetin e 20 mg tablet active Medicati on ID: [id number] B rand Name: fluoxeti ne Send Method: E-Prescr ibed Sub s Allowed: subs OK Medic ationGen ericName : fluoxeti ne Not Available Not Available Not Available polymyxin B sulfate 10,000 unit-trim ethoprim 1 mg/mL eye drops 2020 active Medicati on ID: [id number] B rand Name: polymyxi n B sulf-tri methopri m Send Method: E-Prescr ibed Sub s Allowed: subs OK Medic ationGen ericName : polymyxi n B sulf-tri methopri m Not Available Not Available Not Available monteluka st 10 mg tablet 05/02 completed Medicati on ID: [id number] B rand Name: monteluk ast Send Method: E-Prescr ibed Sub s Allowed: subs OK Medic ationGen ericName : monteluk ast Not Available Not Available Not Available bisacodyl 5 mg tablet,de layed release TAKE 3 TABLETS BY MOUTH 1 TIME DIRECTED active Not Available Not Available No t Available azelastin e 137 mcg (0.1 %) nasal spray 2019 active Medicati on ID: [id number] D uration Value: 30 Prescri bed By Name: YOHANNES Wilkinson nd Name: azelasti ne Send Method: E-Prescr ibed Sub s Allowed: subs OK Speci al Instruct ion: 1 spray into each nostril BID Medi cationGe nericNam e: azelasti ne Not Available Not Available Not Available polyethyl [...] mg tablet 05/02 completed Medicati on ID: [id number] B rand Name: loratadi ne Send Method: E-Prescr ibed Sub s Allowed: subs OK Medic ationGen ericName : loratadi ne Not Available Not Available Not Available lactulose 10 gram/15 mL oral solution 09/13 completed Medicati on ID: [id number] D uration Value: 90 Brand Name: lactulos e Send Method: E-Prescr ibed Sub s Allowed: subs OK Speci al Instruct ion: TK 15 ML PO QD Medic ationGen ericName : lactulos e Not Available Not Available Not Available Flovent HFA 44 mcg/actua tion aerosol inhaler 09/13 completed Medicati on ID: [id number] B rand Name: Flovent HFA Send Method: E-Prescr ibed Sub s Allowed: subs OK Speci al Instruct ion: INHALE 2 PUFFS BY MOUTH TWICE DAILY. RINSE MOUTH WITH WATER AFTER USE. DO NOT SWALLOW Medicati onGeneri cName: Flovent HFA Not Available Not Available Not Available magnesium gluconate 27 mg magnesium (500 mg) tablet 07/26 completed Medicati on ID: [id number] D uration Value: 30 Brand Name: susan mongeonat jay Send Method: E-Prescr ibed Sub s Allowed: subs OK Speci al Instruct ion: TK 1/2 T PO HS Medic ationGen ericName : susan mongeonat e Not Available Not Available Not Available desvenlaf axine succinate ER 50 mg tablet,ex tended release 24 hr active Not Available Not Available Not Available desvenlaf axine succinate ER 100 mg tablet,ex tended release 24 hr active Not Available Not Available Not Available [facility] with Large Mask 2020 active Medicati on ID: [id number] B rand Name: Guero Bradshaw Mask Sen d Method: E-Prescr ibed Sub s Allowed: subs OK Speci al Instruct ion: USE UTD Medi cationGe nericNam e: Guero rowe Leeann Lg Mask Not Available Not Available Not Available EpiPen 2-Gilbert 0.3 mg/0.3 mL injection , auto-inje ctor Inject 1 pen injector intramus cularly single dose 2023 active Not Available Not Available Not Avai lable Flonase Allergy Relief 50 mcg/actua tion nasal spray,elizabeth pension [place] 2 spray into both nostrils once a day 2023 active Medicati on ID: [id number] D uration Value: 30 Brand Name: Flonase [...] Code Diagnosis ICD10 Code Diagnosis Note 2882 DORINDATEDDY CARTER ON LICENSE OF [facility] Allergy [address] [facility],[address] [place] [address] 01/16/2024 13:32:35 01/16/2024 15:03:00 Perennial allergic rhinitis [id number] J30.89 7534 DUARTE MISTRY A Allergy [address] [place] [address],[address] [place] [address] 02/21/2024 14:02:18 02/21/2024 14:29:43 Perennial allergic rhinitis 849027109 J30.89 [id number] DORINDA CARTER A Allergy [address] [place] [address],[address] [place] [address] 04/03/2024 14:06:17 04/03/2024 16:27:17 Perennial allergic rhinitis 654842119 J30.89 Allergic rhinitis 751202 04 J30.89 J30.9 23660 DUARTE FEDE A Allergy [address] [place] [address],[address] [place] [address] 04/30/2024 16:35:00 04/30/2024 17:13:51 Perennial allergic rhinitis 947488901 J30.89 [id number] SPIKE CESAR RN Allergy [address] [place] [address],[address] [place] [address] 05/28/2024 15:36:06 05/28/2024 16:25:25 Perennial allergic rhinitis 606497548 J30.89 [id number] DORINDA CARTER A Allergy [address] [place] [address],[address] [place] [address] 06/25/2024 17:24:47 06/25/2024 17:27:37 Perennial allergic rhinitis 040810177 J30.89 [id number] DUARTE MISTRY, RMA Allergy [address] [facility],[address] [place] [address] 07/31/2024 13:40:27 07/31/2024 13:41:30 Perennial allergic rhinitis 336632571 J30.89 53001 DUARTE MISTRY, A Allergy [address] [place] [address],[address] [place] [address] 09/04/2024 14:13:07 09/04/2024 14:14:46 Perennial allergic rhinitis 190825403 J30.89 [id number] DORINDA CARTER, A Allergy [address] [facility],[address] [place] [address] 10/01/2024 16:41:06 10/01/2024 17:08:56 Perennial allergic rhinitis 754031588 J30.89 [id number] DUARTE MCMAHAN, A Allergy [address] [facility],[address] [place] [address] 10/29/2024 15:24:43 10/29/2024 15:36:42 Perennial allergic rhinitis 248549865 J30.89 Health Concerns Section Related Observation LastModified by Organization Detai ls LastModified Time None Recorded Concern Status LastModified by Organization Details LastModified Time None Recorded Advance Directives Directive None Recorded Payers Encounter Date Sequence Insurance Name Policy Number Policy Becerra Covered Member ID Becerra Member ID Guarantor Name 06/25/2024 1 [facility] [id number] Leah S S Zhang Andrews [id number] Leah S Zhang Andrews 07/31/2024 1 [facility] [id number] Leah S S Zhang Andrews [id number] Leah S Zhang Andrews 09/04/2024 1 [facility] [id number] Leah S S Zhang Andrews [id number] Leah S Zhang Andrews 09/04/2024 2 [place] [facility] Leah S Zhang [id number] Leah S Zhang Andrews 10/01/2024 1 [facility] [id number] Leah S S Zhang Andrews [id number] Leah S Zhang Andrews 10/01/2024 2 [place] [facility] Leah S Zhang [id number] Leah S Zhang Andrews 10/29/2024 1 [facility] [id number] Leah S S Zhang Andrews [id number] Leah S Zhang Andrews 10/29/2024 2 [place] [facility] Leah S Zhang [id number] Leah S Zhang Andrews OBGyn Episode No OBEpisode recorded.
== END 2024-11-11 16:18 | disposition home or self-care (01) ==
LOC: HO.HMCSH 15:20
PROVIDERS: PCP Internal Medicine; Visit Provider Physician Assistant Medical
DX: Z76.89 Persons encountering health services in other specified circumstances (principal); J45.909 Unspecified asthma, uncomplicated; R32 Unspecified urinary incontinence; K58.9 Irritable bowel syndrome, unspecified; E73.9 Lactose intolerance, unspecified; R21 Rash and other nonspecific skin eruption; N64.9 Disorder of breast, unspecified; M25.50 Pain in unspecified joint; M25.40 Effusion, unspecified joint; F41.9 Anxiety disorder, unspecified; D64.9 Anemia, unspecified; E66.812 Obesity, class 2; Z68.38 Body mass index [BMI] 38.0-38.9, adult

== ENCOUNTER → 2024-11-11 15:20 | Outpatient (BNVA) | payer OTHER, SELFPAY | PROVIDERS: PCP Internal Medicine; Visit Provider Physician Assistant Medical | DX: Z76.89 Persons encountering health services in other specified circumstances (principal); J45.909 Unspecified asthma, uncomplicated; R32 Unspecified urinary incontinence; K58.9 Irritable bowel syndrome, unspecified; E73.9 Lactose intolerance, unspecified; R21 Rash and other nonspecific skin eruption; N64.9 Disorder of breast, unspecified; M25.50 Pain in unspecified joint; M25.40 Effusion, unspecified joint; F41.9 Anxiety disorder, unspecified; D64.9 Anemia, unspecified; E66.812 Obesity, class 2; Z68.38 Body mass index [BMI] 38.0-38.9, adult | CPT/HCPCS: 96127 ==

== ENCOUNTER 2024-11-13 07:06 | Outpatient (REF) | payer OTHER, SELFPAY ==
--- OUTSIDE RECORDS SUMMARY | 2024-11-13 07:09 | XMS_ITS | Data Portability ---
Author Organization [place] - [facility], Allergy Address [address] [address] Assessment Encounter Date Assessment Date Assessment LastModified [...] Missed 1 week Dose Notes:? ? ? Not available 06/25/2024 17:25:35 07/31/2024 07/31/2024 Administered [...] Aware of Vial Test Notes:? ? ? [email or web address] Not available 10/01/2024 17:03:20 10/29/2024 10/29/2024 Visit [...] Organization Details Last Modified Time Details [facility]ments [facility]mon [facility] 04:00P [...] Organization Details Recorded Time Bleeding from nose [id number] Active 2020 Epistaxis ; Note: Date Diagnosed : 05/02/2021 3:27 PM (R04.0) Not Available [facility] 4 03:09:12 History of SARS-CoV- 2 [id number] 6649945 Active 2022 Personal history of COVID-19; Note: Date Diagnosed : 3 1:53 PM (Z86.16) Not Available [facility] 4 03:09:12 Acute pharyngit is 322159551 Active 2019 Sore throat (acute) NOS; Note: Date Diagnosed : 12/16/2019 3:14 PM (J02.9) Not Available [facility] 4 03:09:11 Otalgia of left ear 8829113532 Active 2019 Otalgia, left ear; Note: Date Diagnosed : 04/26/2020 5:07 PM (H92.02) Not Available [facility] 4 03:09:11 Bilateral earache 167690386 Active 2019 Otalgia, bilateral ; Note: Date Diagnosed : 12/16/2019 3:14 PM (H92.03) Not Available [facility] 4 03:09:11 Posterior rhinorrhe a 19188588 Active 2021 Postnasal drip; Note: Date Diagnosed : 09/20/2021 2:35 PM (R09.82) Not Available [facility] 4 03:09:11 Allergic rhinitis 92239717 Active 2023 Allergic rhinitis: Due to other [...] 2 2:32 PM (477.8) Not Not Available [facility] 4 01:19:40 Impacted cerumen in left ear 16965644818 81040 Active 2019 Impacted cerumen, left ear; Note: Date Diagnosed : 04/26/2020 5:07 PM (H61.22) Not Available [facility] 4 03:09:10 Acute serous otitis media of right ear 00141294048 81083 Active 2019 Acute serous otitis media, right ear; Note: Date Diagnosed : 02/20/2020 4:14 PM (H65.01) Not Available [facility] 4 03:09:12 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 2019 Other specified disorders of temporoma ndibular joint; Note: Date Diagnosed : 01/19/2020 10:51 AM (M26.69) Not Available [facility] 4 03:09:12 Abnormal auditory perceptio n 08900200 Active 2020 Other abnormal auditory perceptio ns, bilateral ; Note: Date Diagnosed : 12/01/2020 2:40 PM (H93.293) Not Available [facility] 4 03:09:12 Perennial allergic rhinitis 183472937 Active 2023 DOR[address]DA CARTER [address],[place] [address], [place], [address] , [facility] - [facility] 4 13:57:50 Problem Notes None recorded. Procedures Surgical History Date Name Laterality Status Provider Name and Address Organization Details Recorded Time 10/30/19 25 Allergy Immunotherapy Injections completed DUARTE MCMAHAN [facility] [address] [facility],[place] [address], [place], [address], [place] [facility] 10/29/2024 15:35:01 10/01/19 25 Allergy Immunotherapy Injections completed MICHELL BOGGS [address], [place], [address], [place] [facility] 10/01/2024 17:03:03 09/04/19 25 Allergy Immunotherapy Injections completed DUARTE MCMAHAN, RMA [address], [place], [address], [place] [facility] 09/04/2024 14:14:21 07/31/20 24 Allergy Immunotherapy Injections completed DUARTE MCMAHAN, RMA [address], [place], [address], [place] [facility] 07/31/2024 13:41:09 06/25/20 24 Allergy Immunotherapy Injections completed DORINDA CARTER RMA [address], [place], [address], [place] [facility] 06/25/2024 17:25:29 05/28/20 24 Allergy Immunotherapy Injections completed SPIKE CESAR RN [address], [place], [address], [place] [facility] 05/28/2024 16:24:38 04/30/20 24 Allergy Immunotherapy Injections completed DUARTE MCMAHAN, RMA [address], [place], [address], [place] [facility] 04/30/2024 17:09:11 04/03/20 24 Allergy Immunotherapy Injections completed DORINDA CARTER RMA [address], [place], [address], [place] [facility] 04/03/2024 14:18:03 02/21/20 24 Allergy Immunotherapy Injections completed DUARTE MCMAHAN RMA [address] [address], [place], [address], [place] [facility] 02/21/2024 14:26:06 01/16/20 24 Allergy Immunotherapy Injections completed DORINDA CARTER RMA [address], [place], [address], [facility] - [facility] 01/16/2024 13:58:23 Imaging Results None recorded. Procedure Notes None recorded. Medical Equipment None Reported. Medications Name Sig Start Date Stop Date Status Note LastModified by Organization Details LastModified Time metformin 500 mg tablet TAKE 1 TABLET BY MOUTH TWICE DAILY WITH MEALS active Not Available Not Available No t Available Augmentin 875 mg-125 mg tablet 2019 active Medicati on ID: [id number] D uration Value: 10 Prescri bed By Name: Dereck bright MD Brand Name: Augmenti n Send Method: E-Prescr ibed Sub s Allowed: subs OK Speci al Instruct ion: 1 po bid for 10 days Med icationG enericNa me: Augmenti n Not Available Not Available Not Available acetamino phen 325 mg tablet 2020 active Medicati on ID: [id number] B rand Name: acetamin ophen Se nd Method: E-Prescr ibed Sub s Allowed: subs OK Speci al Instruct ion: TK 2 TS PO Q 6 H PRF FEVER OR PN Medic ationGen ericName : acetamin ophen Not Available Not Available Not Available prednisol one sodium phosphate 15 mg/5 mL (3 mg/mL) oral solution 07/26 completed Medicati on ID: [id number] D uration Value: 10 Brand Name: predniso [...] nebulizat ion 2020 active Medicati on ID: [id number] B rand Name: albutero l sulfate Send [...] mg tablet 09/13 completed Medicati on ID: [id number] D uration Value: 30 Brand Name: cetirizi [...] topical ointment 03/15 completed Medicati on ID: [id number] D uration Value: 7 Brand Name: hydrocor [...] by mouth 2019 active Medicati on ID: [id number] D uration Value: 30 Prescri bed By [...] single dose 09/13 completed Medicati on ID: [id number] D uration Value: 1 Brand Name: lidocain e-priloc linda Sen d Method: E-Prescr ibed Sub s Allowed: subs OK Speci al Instruct ion: Please bring to allergy test appoint Medicati onGeneri cName: lidocain e-priloc linda Not Available Not Available Not Available ciproflox acin 0.3 % eye drops 06/07 completed Medicati on ID: [id number] D uration Value: 7 Brand Name: ciproflo [...] mg capsule 09/13 completed Medicati on ID: [id number] D uration Value: 5 Brand Name: oseltami vir Send Method: E-Prescr ibed Sub s Allowed: subs OK Speci al Instruct ion: TK 1 C PO BID FOR 5 DAYS [facility] oseltami vir Not Available Not Available Not Available fluoxetin e 20 mg tablet active Medicati on ID: [id number] B rand Name: fluoxeti ne Send Method: E-Prescr ibed Sub s Allowed: subs OK Medic ationGen ericName : fluoxeti ne Not Available Not Available Not Available polymyxin B sulfate 10,000 unit-trim ethoprim 1 mg/mL eye drops 2020 active Medicati on ID: [id number] B rand Name: polymyxi n B sulf-tri methopri m Send Method: E-Prescr ibed Sub s Allowed: subs OK Medic ationGen ericName : polymyxi n B sulf-tri methopri m Not Available Not Available Not Available monteluka st 10 mg tablet 05/02 completed Medicati on ID: [id number] B rand Name: montel[place] ast Send Method: E-Prescr ibed Sub s Allowed: subs OK Medic ationGen ericName : montel[place] ast Not Available Not Available Not Available bisacodyl 5 mg tablet,de layed release TAKE 3 TABLETS BY MOUTH 1 TIME DIRECTED active Not Available Not Available No t Available azelastin e 137 mcg (0.1 %) nasal spray 2019 active Medicati on ID: [id number] D uration Value: 30 Prescri bed By [...] mg tablet 05/02 completed Medicati on ID: [id number] B rand Name: loratadi ne Send Method: E-Prescr ibed Sub s Allowed: subs OK Medic ationGen ericName : loratadi ne Not Available Not Available Not Available lactulose 10 gram/15 mL oral solution 09/13 completed Medicati on ID: [id number] D uration Value: 90 Brand Name: lactulos e Send Method: E-Prescr ibed Sub s Allowed: subs OK Speci al Instruct ion: TK 15 ML PO QD Medic ationGen ericName : lactulos e Not Available Not Available Not Available Flovent HFA 44 mcg/actua tion aerosol inhaler 09/13 completed Medicati on ID: [id number] B rand Name: Flovent HFA Send Method: E-Prescr ibed Sub s Allowed: subs OK Speci al Instruct ion: INHALE 2 PUFFS BY MOUTH TWICE DAILY. RINSE MOUTH WITH WATER AFTER USE. DO NOT SWALLOW Medicati onGeneri cName: Flovent HFA Not Available Not Available Not Available magnesium gluconate 27 mg magnesium (500 mg) tablet 07/26 completed Medicati on ID: [id number] D uration Value: 30 Brand Name: susan [...] active Not Available Not Available Not Available [facility] with Large Mask 2020 active Medicati on ID: [id number] B rand Name: Guero Bradshaw Mask Sen [...] Relief 50 mcg/actua tion nasal spray,elizabeth pension [place] 2 spray into both nostrils once a day 2023 active Medicati on ID: [id number] D uration Value: 30 Brand Name: Flonase [...] ICD10 Code Diagnosis Note [id number] DORINDATEDDY CARTER [facility] Allergy [address] [facility],[address] [place] [address] 01/16/2024 13:32:35 01/16/2024 15:03:00 Perennial allergic rhinitis [id number] J30.89 7534 DUARTE MISTRY A Allergy [address] [place] [address],[address] [place] [address] 02/21/2024 14:02:18 02/21/2024 14:29:43 Perennial allergic rhinitis 400782309 J30.89 [id number] DORINDA CARTER A Allergy [address] [place] [address],[address] [place] [address] 04/03/2024 14:06:17 04/03/2024 16:27:17 Perennial allergic rhinitis 208982285 J30.89 Allergic rhinitis 779789 04 J30.89 J30.9 47745 DUARTE FEDE A Allergy [address] [place] [address],[address] [place] [address] 04/30/2024 16:35:00 04/30/2024 17:13:51 Perennial allergic rhinitis 305830462 J30.89 [id number] SPIKE CESAR RN Allergy [address] [place] [address],[address] [place] [address] 05/28/2024 15:36:06 05/28/2024 16:25:25 Perennial allergic rhinitis 873085807 J30.89 97642 DORINDA CARTER A Allergy [address] [place] [address],[address] [place] [address] 06/25/2024 17:24:47 06/25/2024 17:27:37 Perennial allergic rhinitis 565367624 J30.89 [id number] DUARTE MISTRY, RMA Allergy [address] [facility],[address] [place] [address] 07/31/2024 13:40:27 07/31/2024 13:41:30 Perennial allergic rhinitis 105725693 J30.89 [id number] DUARTE MISTRY, A Allergy [address] [place] [address],[address] [place] [address] 09/04/2024 14:13:07 09/04/2024 14:14:46 Perennial allergic rhinitis 299904706 J30.89 77346 DORINDA CARTER, A Allergy [address] [facility],[address] [place] [address] 10/01/2024 16:41:06 10/01/2024 17:08:56 Perennial allergic rhinitis 428279971 J30.89 [id number] DUARTE MCMAHAN, A Allergy [address] [facility],[address] [place] [address] 10/29/2024 15:24:43 10/29/2024 15:36:42 Perennial allergic rhinitis 056214343 J30.89 Health Concerns Section Related Observation LastModified by Organization Detai ls LastModified Time None Recorded Concern Status LastModified by Organization Details LastModified Time None Recorded Advance Directives Directive None Recorded Payers Encounter Date Sequence Insurance Name Policy Number Policy Becerra Covered Member ID Becerra Member ID Guarantor Name 06/25/2024 1 [facility] [id number] Leah S S Zhang Andrews [id number] Leah S Zhang Andrews 07/31/2024 1 [facility] [id number] Leah S S Zhang Andrews [id number] Leah S Zhang Andrews 09/04/2024 1 [facility] [id number] Leah S S Zhang Andrews [id number] Leah S Zhang Andrews 09/04/2024 2 [place] [facility] Leah S Zhang [id number] Leah S Zhang Andrews 10/01/2024 1 [facility] [id number] Leah S S Zhang Andrews [id number] Leah S Zhang Andrews 10/01/2024 2 [place] [facility] Leah S Zhang [id number] Leah S Zhang Andrews 10/29/2024 1 [facility] [id number] Leah S S Zhang Andrews [id number] Leah S Zhang Andrews 10/29/2024 2 [place] [facility] Leah S Zhang [id number] Leah S Zhang Andrews OBGyn Episode No OBEpisode recorded.
[2024-11-13 07:33] LABS: MANUAL DIFF FLAG NO
[2024-11-13 07:47] LABS: Basophils Absolute Auto 0.1 X10*3/uL (0.0-0.2); Eosinophils Absolute Auto 0.2 X10*3/uL (0.0-0.4); Eosinophils Percent Auto 3.3 % (0-4); Hematocrit 36.9 % (37.0-47.0); Imm Gran Abs Auto 0.02 X10*3/uL (0.00-0.03); Imm Gran Pct Auto 0.3 % (0.0-0.4); Lymphocytes Absolute Auto 2.2 X10*3/uL (1.2-4.9); Mean Corpuscular HGB Conc 32.5 g/dl (31.0-35.0); Mean Corpuscular Hemoglobin 26.3 pg (27.0-33.0); Mean Corpuscular Volume 80.7 fL (80.0-98.0); Mean Platelet Volume 12.5 fL (9.4-12.3); Monocytes Absolute Auto 0.6 X10*3/uL (0.1-1.2); Monocytes Percent Auto 9.4 % (2-11); Neutrophils Absolute Auto 3.1 x10*3/uL (2.0-8.3); Platelet Count 209 X10*3/uL (160-400); Red Blood Count 4.57 X10*6/uL (4.20-5.50); White Blood Count 6.2 X10*3/uL (4.8-10.8)
[2024-11-13 07:48] LABS: Estimated Average Glucose 111 mg/dL; Hemoglobin A1C 117.2636 umol/L; Hemoglobin A1c % 5.5 % (<6.0); Total Hemoglobin (HGBA1C) 3214.6475 umol/L
[2024-11-13 08:13] LABS: Parathyroid Hormone Intact 86.5 pg/mL (8.7-77.1)
[2024-11-13 08:15] LABS: Rheumatoid Factor < 13.0 IU/mL (<15.0)
[2024-11-13 08:26] LABS: Alanine Aminotransferase 12 U/L (0-31); Albumin Level 4.1 g/dL (3.5-5.0); Alkaline Phosphatase 72 U/L (39-117); Anion Gap 10 (12-20); Aspartate Amino Transferase 17 U/L (5-31); Bilirubin Direct 0.1 mg/dL (0.0-0.5); Bilirubin Total 0.3 mg/dL (0.0-1.0); Blood Urea Nitrogen 12 mg/dL (9-16); C Reactive Protein 0.18 mg/dL (< or = 0.50); Calcium 8.8 mg/dL (8.4-10.2); Carbon Dioxide 23 mmol/L (22-29); Chloride 111 mmol/L (96-108); Cholesterol 171 mg/dL (<200); Estimated Glomerular Filt Rate > 60; Glucose Fasting 96 mg/dL (60-99); HDL Cholesterol 66 mg/dL (>40); Iron 57 mcg/dL (30-160); LDL Cholesterol Calculated 94 mg/dL (<100); Magnesium 1.9 mg/dL (1.6-2.6); Percent Iron Saturation 18 % (15-50); Phosphorus 3.8 mg/dL (2.7-4.5); Potassium 4.3 mmol/L (3.3-5.1); Sodium 140 mmol/L (135-145); Total Iron Binding Capacity 324 mcg/dL (228-428); Total Protein 6.9 g/dL (6.5-8.0); Triglycerides 57 mg/dL (<150); Unsaturated Iron Binding 267 ug/dL
[2024-11-13 08:27] LABS: Erythrocyte Sedimentation Rate 7 MM/HR (0-20)
[2024-11-13 08:42] LABS: Vitamin B12 470 pg/mL (200-900)
[2024-11-13 08:53] LABS: Ferritin 13 ng/mL (10-122); TSH reflex Free T4 1.99 uIU/mL (0.32-4.0); Vitamin D 25-OH Total 24.1 ng/mL (>30)
[2024-11-18 22:28] LABS: Estrogen 111 pg/mL
[2024-11-19 10:38] LABS: Anti Nuclear Antibody Screen NEGATIVE (NEGATIVE)
[2024-11-26 16:54] LABS: Progesterone <0.1 ng/mL
== END 2024-11-13 07:07 | disposition home or self-care (01) ==
LOC: HO.LAB 07:06
PROVIDERS: PCP Internal Medicine; Visit Provider Physician Assistant Medical
DX: Z00.00 Encounter for general adult medical examination without abnormal findings (principal); M25.50 Pain in unspecified joint; M25.40 Effusion, unspecified joint; D64.9 Anemia, unspecified; R10.9 Unspecified abdominal pain
CPT/HCPCS: 36415; 80053; 80061; 80076; 82248; 82306; 82607; 82672; 82728; 82746; 83036; 83540; 83735; 83970; 84100; 84144; 84146; 84443; 85025; 85652; 86038; 86140; 86431; 87338

== ENCOUNTER 2024-12-26 11:06 | Outpatient (AMB) | payer OTHER, SELFPAY ==
--- NOTE | 2024-12-26 11:31 | A.OFFPC_ITS ---
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: No Accompanied by: Self / Same As Patient Allergies ENVIRONMENTAL Allergy (Unknown, Uncoded 12/26/24 12:57) RASH seasonal Allergy (Unknown, Uncoded 12/26/24 12:57) unknown Medication List - Last Reconciled 12/26/24 by Bharati Hill PA-C acetaminophen ER (Tylenol 8 Hour) 650 mg PO Q8H PRN albuterol sulfate 90 mcg/actuation 2 puffs inhalation Q4-6H PRN albuterol sulfate 2.5 mg inhalation Q4H PRN cholecalciferol (vitamin D3) 25 mcg PO DAILY epinephrine IM hydrocortisone 2.5% 1 appl topical BID-TID PRN polyethylene glycol 3350 grams PO sennosides (senna) 8.6 mg PO BID PRN tirzepatide (weight loss) (Zepbound) 2.5 mg (0.5 mL) subcut QWEEK Tobacco use date assessed: 12/26/24 Dental Screening Dental Screen Date: 11/11/24 HPI Physical HPI Details The patient is a 19-year-old female presenting annual physical. She would like to discuss issues related to weight management and fatigue. Fatigue appears related to her demanding work schedule involving long shifts at two different locations, [employer] and [employer]. She also reports experiencing symptoms of anxiety and depression, and explains a regain in weight after a prior loss on a ketogenic diet, which coincided with these emotional stressors. She is exploring weight management options, including medications, fasting, and lifestyle changes, and seeks an alternative to a previous prescription that caused gastrointestinal issues. The patient currently uses intermittent fasting along with gym attendance and a healthy diet. She trialed metformin although the metformin gave her diarrhea therefore she discontinued this. The metformin was for weight loss. For her dermatological condition, she uses hydrocortisone with noted improvement to her left breast nipple. These symptoms are likely influenced by changes in environmental conditions. She requires several vaccinations for school compliance, noting prior challenges in obtaining records from her pediatric office. She needs coordination for a TB test requirement. Social History - Employment: Works 12-hour shifts at [employer]. - Exercise: Attends the gym regularly. - Diet: Eats healthily and practices int ermittent fasting. - Emotional health: Experiencing anxiety and depression related to workload and life transitions. - Travel history: Recent trip to [facility]. - Vaccination: Requires updates for scho ol requirements. [facility] Medical History (Updated 12/26/24 @ 13:09 by Bharati Hill PA-C) Vaccine counseling Class 2 obesity with body mass index (BMI) of 37.0 to 37.9 in adult Annual physical exam Cervical cancer screening Vitamin D deficiency Class 2 obesity with body mass index (BMI) of 38.0 to 38.9 in adult Anemia Anxiety Joint swelling Joint pain Abnormal nipple Rash Lactose intolerance IBS (irritable bowel syndrome) Establishing care with new doctor, encounter for Leaking of urine Dysmenorrhea Asthma Family History Mother No problems noted. Father No problems noted. Social History Housing: House Alcohol intake: never Patient Tobacco Use Status: Never used Tobacco service: No Current occupational status: employed and student Gender identity: Female Cognitive needs: No Hearing needs: No Vision needs: Yes (rx contacts/ glasses) Female Reproductive History Menstrual Age of Menarche: 11 Questionnaire PHQ-9 Over the last 2 weeks, how often have you been bothered by any of the following problems? 1. Little interest or pleasure in doing things: not at all 2. Feeling down, depressed, or hopeless: not at all 3. Trouble falling or staying asleep, or sleeping too much: not at all 4. Feeling tired or having little energy: not at all 5. Poor appetite or overeating: more than half the days 6. Feeling bad about yourself - or that you are a failure or have let yourself or your family down: not at all 7. Trouble concentrating on things, such as reading the newspaper or watching television: several days 8. Moving or speaking so slowly that other people could have noticed. Or the opposite - being so fidgety or restless that you have been moving around a lot more than usual: not at all 9. Thoughts that you would be better off or of hurting yourself in some way: not at all Total score: 3 Depression Screening Interpretation: Negative Depression Screening Done: Yes 05490 - PHQ-9 Billing: Yes Source: Developed by Drs. Dereck Rajput, Porsche Silva, Logan Saxena and colleagues, with an educational ayah from [employer]. Thrive Questionnaire Date Thrive assessed: 11/11/24 I am a: Patient What is your living situation today?: I have a steady place to live Within the past 12 months, did the food you bought not last and you didn't have the money to get more?: Never true Within the past 12 months, did you worry whether your food would run out before you got money to buy more?: Never true Do you have trouble paying for medicines?: Yes Do you have trouble getting transportation to medical appointments?: No Do you have trouble paying your heating and electricity bill?: No Do you have trouble taking care of your child, family member or friend?: No Do you have trouble with day-to-day activities such as bathing, preparing meals, shopping, managing finances, etc.?: No Are you currently unemployed and looking for a job?: No Are you interested in more education?: No Please select the resources that you would like help with: None THRIVE Score: 0 AUDIT C Alcohol Use Questionnaire (AUDIT-C) 1. How often do you have a drink containing alcohol?: Never 3. How often do you have six or more drinks on one occasion?: Never Total Score: 0 Score Reviewed/Action Taken: No CHEYENNE-7 AMB Questionnaire CHEYENNE-7 Date CHEYENNE - 7 assessed: 11/11/24 Feeling nervous, anxious, or on edge: 1 = Several days Not being able to stop or control worryin = Not at all Worrying too much about different things: 0 = Not at all Trouble relaxin = Not at all Being so restless that it is hard to sit still: 0 = Not at all Becoming easily annoyed or irritable: 0 = Not at all Feeling afraid as if something awful might happen: 0 = Not at all Total CHEYENNE-7 score (0-4 normal; 5-9 mild; 10-14 moderate; 15-21 severe): 1 Source: Developed by Porsche Tello Kurt Kroenke and colleagues, with an educational ayah from [employer]. CHEYENNE-7 Assessment Billing CHEYENNE-7 Assessment Tool: CHEYENNE-7 Assessment 77236 Review of Systems Const Details: - General: Reports fatigue. - HEENT: Reports improved dermatological condition with hydrocortisone use. - Endocrine: Reports use of intermittent fasting for weight management. - Psychiatric: Reports symptoms of anxiety and depression. Physical exam (Primary Care) Vital Signs: Last Vital Signs Temp 98.5 F 12/26/24 11:32 Pulse 55 12/26/24 11:32 Resp 14 12/26/24 11:32 BP 135/68 12/26/24 11:32 Pulse Ox 98 12/26/24 11:32 Oxygen Delivery Method Room Air 12/26/24 11:32 Care Plan Goal for BP management: <130/90 at Goal BMI result Body Mass Index 37.1 BMI Assessment/Plan discussion: High BMI High, discussed plan: lifestyle, weight reduction, dietary, physical activity and alcohol moderation Tobacco/Smoking Status: Tobacco use Status Tobacco use date assessed 12/26/24 12/26/24 11:34 Patient Tobacco Use Status Never used Tobacco 12/26/24 11:34 PHQ-9: PHQ-9 Score PHQ-9: Total score 3 12/26/24 11:54 Depression Screening Interpretation: Negative Thrive Assessment: Date of Thrive Assessment Date Thrive assessed 11/11/24 12/26/24 11:34 Const Other: Appearance: Alert. Oriented X3. No acute distress. Head: Normal external exam. Normocephalic. Atraumatic. Eyes: Pupils are equal, round, and reactive to light. Extraocular movements intact. Conjunctiva and sclera normal. Eyelids normal. Ears: External auditory canal normal. Tympanic membranes normal. Throat: Pharynx normal. Uvula midline. Moist mucous membranes. Neck: Normal inspection. Neck supple. Full range of motion. No adenopathy. Thyroid Normal. No meningeal signs. No neck mass noted. Cardiovascular: Normal heart rate and rhythm. Heart sound normal. No murmurs noted. Pulses normal throughout. Respiratory: No respiratory distress. Painless inspiration. Breath sounds normal. No wheezes/rales/rhonchi noted. Chest nontender. No accessory muscle usage noted or decreased air movement noted. Abdomen: Soft and nontender. Bowel sounds normal in all 4 quadrants. No distention noted. No organomegaly noted. No visible injury noted. Back: No costovertebral angle tenderness. Full range of motion noted. Skin: Skin warm and dry. Normal skin color. Normal skin turgor. No rashes/lesions/lacerations noted. Extremities: No lower extremity edema. Extremities exhibit normal range of motion. Extremities nontender. Neuro: Oriented X 3. No motor deficit. No sensory deficit. Reflexes normal. Results Reviewed Results Reviewed: - Tests and Diagnostics: TB test pending, vaccination records pending. Coding Level of Care Code Est Pt Level 4 (25712) Est Pt Prev Care 18-39y(54450) Diagnoses Annual physical exam Z00.00 Class 2 obesity with body mass index (BMI) of 37.0 to 37.9 in adult E66.812; Z68.37 Anxiety F41.9 Vaccine counseling Z71.85 Additional Codes CHEYENNE-7 Assessment Billing - CHEYENNE-7 Assessment Tool: CHEYENNE-7 Assessment 93209 ([id number]) PHQ-9 - 94970 - PHQ-9 Billing: Yes ([id number]) Assessment & Plan Assessment & Plan (1) Annual physical exam: Code(s): Z00.00 - Encounter for general adult medical examination without abnormal findings Category: Medical (2) Class 2 obesity with body mass index (BMI) of 37.0 to 37.9 in adult: Code(s): E66.812 - Obesity, class 2; Z68.37 - Body mass index [BMI] 37.0-37.9, adult Category: Medical Plan: Plan: Trial of Zepbound, pending insurance approval, gradual dose escalation, maintenance of lifestyle modifications. Condition is chronic and stable continue to monitor. (3) Anxiety: Code(s): F41.9 - Anxiety disorder, unspecified Category: Medical Plan: Plan: Monitor symptomatology, encourage mental health resources if necessary. Condition is chronic and stable will continue to monitor. (4) Vaccine counseling: Code(s): Z71.85 - Encounter for immunization safety counseling Category: Medical Plan: Plan: Organize vaccinations and titers, coordinate immunization status update. Patient requesting MMR, varicella, hepatitis-B, meningitis and Tdap vaccines. Along with T spot blood work. She needs this for [facility] by November 09. Plan Plan Patient was informed and verbally consented to the use of an ambient scribe for clinic note documentation during this visit. 1. Fatigue Plan: Monitor energy levels and rest adequacy, explore work-life balance improvements. 2. Obesity Plan: Trial of Zepbound, gradual dose escalation, maintenance of lifestyle modifications. 3. Anxiety And Depression Plan: Monitor symptomatology, encourage mental health resources if necessary. 4. Prescription Medication Intolerance Plan: Discontinue intolerable medication, consider alternatives with lower side- effect profiles. 5. Dermatological Condition Plan: Continue hydrocortisone, reassess if necessary. 6. Vaccination Requirements Plan: Organize vaccinations and titers, coordinate immunization status update. I engaged in a detailed discussion with the patient regarding her fatigue and potential factors contributing to it, advising her on strategies to balance work and rest. We reviewed Zepbound as an option for her weight management, emphasizing its slow, staged introduction to minimize side effects, including possible gastrointestinal upset. Benefits include hunger reduction and potential weight loss, with advisement on maintaining lifestyle changes alongside medication for sustained outcomes. We discussed the necessity of updating her vaccination status for school compliance and coordinated steps for her TB test and potential titers. I informed her about potential emotional support options, given her anxiety and depression narrative, encouraging proactive engagement with mental health resources if her condition deteriorates. Orders: Orders T Spot TB Today Z00.00 - Encounter for general adult medical examination without abnormal findings MMR IgG Measles Mumps Rubella Today Z00.00 - Encounter for general adult medical examination without abnormal findings, Z71.85 - Encounter for immunization safety counseling Hepatitis BE Antibody Today Z00.00 - Encounter for general adult medical examination without abnormal findings, Z71.85 - Encounter for immunization safety counseling Meningococcal ACWY Immunization Today Z23 - Encounter for immunization TDaP Immunization Today Z00.00 - Encounter for general adult medical examination without abnormal findings, Z23 - Encounter for immunization, Z71.85 - Encounter for immunization safety counseling Varicella Immunization Today Z00.00 - Encounter for general adult medical examination without abnormal findings, Z23 - Encounter for immunization, Z71.85 - Encounter for immunization safety counseling Hepatitis BE Antigen Today Z00.00 - Encounter for general adult medical examination without abnormal findings, Z71.85 - Encounter for immunization safety counseling Referrals [facility] Referral Z12.4 - Encounter for screening for malignant neoplasm of cervix Medications: New acetaminophen ER (Tylenol 8 Hour) 650 mg PO Q8H PRN 30 tabs 1RF pain mening vac A,C,Y,W135 dip (PF) 0.5 mL IM ONCE 0.5 mL 0RF Z23 - Encounter for immunization tirzepatide (weight loss) (Zepbound) for 4 weeks 2.5 mg (0.5 mL) subcut QWEEK 2 mL 0RF Boostrix Tdap (diphth,pertus(acell),tetanus) 0.5 mL IM ONCE 0.5 mL 0RF NS Z00.00 - Encounter for general adult medical examination without abnormal findings, Z23 - Encounter for immunization, Z71.85 - Encounter for immunization safety counseling Varivax (PF) (varicella virus vacc live (PF)) 0.5 mL subcut ONCE 1 ea 0RF NS Z00.00 - Encounter for general adult medical examination without abnormal findings, Z23 - Encounter for immunization, Z71.85 - Encounter for immunization safety counseling Discontinued acetaminophen (Tylenol) Discontinued Reason: Doctor's Order 975 mg (3 x 325 mg) PO Q6H PRN 20 tabs 0RF fever or pain metformin ER Discontinued Reason: Doctor's Order 500 mg PO DAILY 90 tabs 1RF Patient Instructions: - Rest and monitor tiredness, aim for work-life balance. - Maintain a healthy diet and fasting routine, take Zepbound as prescribed. - Report any new or worsening symptoms of anxiety or depression. - Continue using hydrocortisone for skin condition management. - Follow up with vaccination requirements for school; complete TB test and return for scheduled vaccinations when instructed. - Communicate any issues with the new prescription or need for medication changes.
[2024-12-26 11:32] VITALS: BP 135/68; PULSE 55; RESP 14; TEMP 36.9; O2SAT 98; BMI 37.1
--- OUTSIDE RECORDS SUMMARY | 2024-12-26 11:33 | XMS_ITS | Clinical Summary ---
Author Organization [facility] Address [address] [place] [phone] Phone Care Team Providers Care Manager Internet Name Role Phone Unavailable Primary Care Provider [...] Overview (01/02/2024): 01/02/2024 (age 18yr): Followed by [facility] DATA REVIEWER + - Last Specialist Visit: 11/15/2023 . Discussed BC options, dysmenorrhea [place] options. Will use ibuprofen. Was not Rx'd BC. Assessment & Plan (01/02/2024 11:29 AM EDT): 01/02/2024 (age 18yr): Followed by [facility] DATA REVIEWER + Anxiety 04/24/2023 Overview (01/04/2024): 04/24/23 - Pt's anxiety has increased due to discontinuing medication and recent break-up with her boyfriend. Is having difficulty with focus at school. 05/01/23 - Pt is accepting the break-up and feels that her emotions are still there, but more manageable. She has contacted [facility] and plans to follow-up there. She did not schedule a follow-up with [facility], but will follow-up with PCP. [facility] invited her to return of needed. 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 Patient will benefit from support in managing her anxiety, accepting/ mourning recent loss, and follow-up with PCP around medication - Pt to see [facility] briefly and bridge to [facility] (pt to contact and connect). 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 Patient will benefit from support in managing her anxiety, accepting/ mourning recent loss, and follow-up with PCP around medication - Pt to see [facility] briefly and bridge to [facility] (pt to contact and connect). PLAN: Follow up with [facility] briefly and bridge to outpatient services Patient [...] eating. 03/16/[address] done at [facility] ED 04/09/2024 (age 18yr): History consistent with [...] - Recommend ADHD kailash, gave number for [facility] [employer] - has extra help at school - [...] gets mood swings. 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 Had been followed by Lucy Nieto [facility] but still having issues with insurance. - Continue fluoxetine 20 mg - Try to get counseling through school - follow up 2-3 months. Assessment & Plan (11/21/2022 4:39 PM EDT): 11/21/2022 (age 17yr):Followed by Lucy Nieto [facility] but still having issues with insurance. [...] 11/08/2022 (age 17yr): Followed by Lucy Nieto [facility]. Anxiety is interfering with her ability [...] with future goals. PLAN: Follow up with [facility] 3 weeks Patient goal is to identify [...] future goals. PLAN: 1. Follow up with [facility] 2 weeks 2. Patient goal is to [...] future goals. PLAN: 1. Follow up with [facility] 2 weeks 2. Patient goal is to [...] gets mood swings. 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 02/05/2019: Saw Dr. Hamilton's office, diagnosed with [...] specified), Rx'ed orapred and epipen, referred to physical therapy aide. 02/05/2019: Saw Dr. Hamilton's office, note in records not readable. mg and zyrtec 10 mg today. Chronic pharyngitis 06/19/2020 Overview (09/12/2021): 09/12/2021 (age 15yr 11mo): Followed by ENT for this now ([address] Detailed History and Chronology of care: Treated at [facility] for recurrent strep, never diagnosed in [...] have excessive wax. ENT (Jackie Major) in [place]. Will monitor for recurrent pharyngitis. History: Treated at [facility] for recurrent strep, never diagnosed in [...] Seafood allergy ruled out by Dr. Hamilton (physical therapy aide) 01/2019. History: 12/02/2018: Rash on face and lip swelling after eating seafood (type not specified), Rx'ed orapred and epipen, referred to physical therapy aide. 02/05/2019: Saw Dr. Hamilton's office, seafood allergy ruled out. Assessment & Plan (06/21/2020 11:11 AM EST): 06/21/2020 (age 14 yr 8 mo): per she reports that she was told she didn't have seafood allergy by Dr. Hamilton. Await reports. She has also seen ENT (Jackie Major) ENT in [place]. Per pt planning to get allergy shots [...] AM EST - 10/08/2024 12:40 PM EST Emergency [facility] - Patient Ping 10/08/2024 Telephone [facility] [address] [place] [address] Susi Fuentes MD 21 letter from Last [...] Additional history exists Procedures * Due to [place] state law, this organization might not be sharing sensitive test results. Procedure Name Priority Date/Time Associated Diagnosis Comments CHLAMYDIA AND GONORRHEA, AMPLIFIED Routine 01/02/2024 11:39 AM EDT Encounter for screening examination for chlamydial infection from Last 3 Months or Most Recently Relevant to Health Maintenance Results * Due to [place] state law, this organization might not be sharing sensitive test results. * Chlamydia and Gonorrhoea, Amplified (01/02/2024 11:39 AM EDT) C trach CHUY Negative Negative [facility] N gonorrhoeae CHUY Negative Negative [facility] Urine (Urine) 01/02/2024 11: 39 AM EDT 01/02/2024 Comment:UR Narrative [facility] - 01/04/2024 9:08 AM EDT Performed at: ??01 - [facility] [place] [address], [address], [place], [place] [id number] Aircraft Engine Assembler: Austen Rooney MD, Phone: ??[phone] Susi Fuentes MD LAB MICROBIOLOGY - GENERAL OR DERABLES Final Result Performing Organization Address City/State/[facility] Co de Phone Number [facility] [address] [place] [address] from Last 3 Months or Most Recently Relevant to Health Maintenance Insurance [facility] Feeding Forward [facility] COMM[employer]CIAL
--- OUTSIDE RECORDS SUMMARY | 2024-12-26 11:34 | XMS_ITS | Data Portability ---
Author Organization [facility]ATH[facility] - [facility], Allergy Address [address] [address] Assessment Encounter Date Assessment Date Assessment LastModified by Organization Details LastModified Time 07/31/2024 07/31/2024 Administered By: MICHELL Rao Use [...] Aware of Vial Test Notes:? ? ? [email or web address] Not available 10/01/2024 17:03:20 10/29/2024 10/29/2024 Visit With: MICHELL Rao Use of Antihistamines: No If yes: Vial Test Change in medications: No If yes ? ? ? Increase in asthma symptoms If yes, inhaler use: Reaction to last injections: No If yes: ? ? ? Allergy Symptoms: Other: ? ? ? Missed: Dose Aware of Vial Test Notes:? ? ? [email or web address] Not available 10/29/2024 15:36:12 11/14/2024 11/14/2024 Patient is benefited from immunotherapy. She completed 1 year of monthly injections. Examination is unremarkable today. Recommend patient discontinue SCIT, as there are minimal evidence-based benefits to continue. She will follow-up as needed in our office. [email or web address] Not available 11/14/2024 18:09:34 Plan of Treatment Reminders Order Date Submit Date Provider Last Modified By Organization Details Last Modified Time Details Appointments None record ed. Lab None record ed. Referral None record ed. Procedures None record ed. Surgeries None record ed. Imaging None record ed. Medication Orders None record ed. Patient TargetsNo targets recorded. Patient InstructionsNo instructions recorded. Reason for Referral None Reported. Problems Name Problem SNOMED Code Status Onset Date Resolution Date Notes Provider Name and Address Organization Details Recorded Time Bleeding from nose 868876763 Active 2020 Epistaxis ; Note: Date Diagnosed : 05/02/2021 3:27 PM (R04.0) Not Available [facility] 4 03:09:12 History of SARS-CoV- 2 [id number] 2854608 Active 2022 Personal history of COVID-19; Note: Date Diagnosed : 3 1:53 PM (Z86.16) Not Available [facility] 4 03:09:12 Acute pharyngit is 532231194 Active 2019 Sore throat (acute) NOS; Note: Date Diagnosed : 12/16/2019 3:14 PM (J02.9) Not Available [facility] 4 03:09:11 Otalgia of left ear 1287813529 Active 2019 Otalgia, left ear; Note: Date Diagnosed : 04/26/2020 5:07 PM (H92.02) Not Available [facility] 4 03:09:11 Bilateral earache 181016377 Active 2019 Otalgia, bilateral ; Note: Date Diagnosed : 12/16/2019 3:14 PM (H92.03) Not Available [facility] 03:09:11 Posterior rhinorrhe a 72913673 Active 2021 Postnasal drip; Note: Date Diagnosed : 09/20/2021 2:35 PM (R09.82) Not Available [facility] 03:09:11 Allergic rhinitis 77922071 Active 2023 Allergic rhinitis: Due to other [...] other allergen; Note: Date Diagnosed : 3 12:07 PM (477.8) Note: Date Diagnosed : 3 12:07 PM (477.8) ; Start Date : 3 Allergi c rhinitis: Due to other allergen; Note: Date Diagnosed : 07/17/2023 1:09 PM (477.8) Note: Date Diagnosed : 07/17/2023 1:09 PM (477.8) ; Start Date : 3 Allergi c rhinitis: Due to other allergen; Note: Date Diagnosed : 3 1:15 PM (477.8) Note: Date Diagnosed : 3 1:15 PM (477.8) ; Start Date : 3 Allergi c rhinitis: Due to other allergen; Note: Date Diagnosed : 10:08 AM (477.8) Note: Date Diagnosed : 10:08 AM (477.8) ; Start Date : 3 Allergi c rhinitis: Due to other allergen; Note: Date Diagnosed : 3:06 PM (477.8) Note: Date Diagnosed : 3:06 PM (477.8) ; Start Date : 3 Allergi c rhinitis: Due to other allergen; Note: Date Diagnosed : 10:18 AM (477.8) Note: Date Diagnosed : 10:18 AM (477.8) ; Start Date : 3 Allergi c rhinitis: Due to other allergen; Note: Date Diagnosed : 05/08/2023 10:54 AM (477.8) Note: Date Diagnosed : 05/08/2023 10:54 AM (477.8) ; Start Date : 3 [...] 4:08 PM (477.8) ; Start Date : 3 [...] 3:48 PM (477.8) ; Start Date : Allergi c rhinitis: Due to other allergen; Note: Date Diagnosed : 08/17/2022 1:25 PM (477.8) Note: Date Diagnosed : 08/17/2022 1:25 PM (477.8) ; Start Date : 3 Allergi c rhinitis: Due to other allergen; Note: Date Diagnosed : 2 2:32 PM (477.8) Not Not Available [facility] 4 01:19:40 Impacted cerumen in left ear [id number] 96580 Active 2019 Impacted cerumen, left ear; Note: Date Diagnosed : 04/26/2020 5:07 PM (H61.22) Not Available [facility] 4 03:09:10 Acute serous otitis media of right ear 93939176478 08148 Active 2019 Acute serous otitis media, right ear; Note: Date Diagnosed : 02/20/2020 4:14 PM (H65.01) Not Available [facility] 4 03:09:12 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 Other specified disorders of temporoma ndibular joint; Note: Date Diagnosed : 01/19/2020 10:51 AM (M26.69) Not Available [facility] 4 03:09:12 Abnormal auditory perceptio n 43419042 Active 2020 Other abnormal auditory perceptio ns, bilateral ; Note: Date Diagnosed : 12/01/2020 2:40 PM (H93.293) Not Available [facility] 4 03:09:12 Perennial allergic rhinitis 502470869 Active 2023 DORINDA CARTER [place] [address] [place] [address], [phone] , [facility] 4 13:57:50 Problem Notes None recorded. Procedures Surgical History Date Name Laterality Status Provider Name and Address Organization Details Recorded Time 10/30/19 25 Allergy Immunotherapy Injections completed DUARTE MCMAHAN [address], [address], [facility] 10/29/2024 15:35:01 10/01/19 25 Allergy Immunotherapy Injections completed DORINDA CARTER [address], [address], [facility] [place] 10/01/2024 17:03:03 09/04/19 25 Allergy Immunotherapy Injections completed DUARTE MARTIR, RMA [address],[place] [address], [address], [facility] - [facility] [place] 09/04/2024 14:14:21 07/31/20 24 Allergy Immunotherapy Injections completed DUARTE MARTIR, RMA [address],[place] [address], [address], [place] - [facility] 07/31/2024 13:41:09 06/25/20 24 Allergy Immunotherapy Injections completed DORINDA CARTER RMA [address],[place] [address], [address], [facility] - [facility] [place] 06/25/2024 17:25:29 05/28/20 24 Allergy Immunotherapy Injections completed SPIKE CESAR RN [address],[place] [address] [place] [address], [address], [facility] - [facility] [place] 05/28/2024 16:24:38 04/30/20 24 Allergy Immunotherapy Injections completed DUARTE MCMAHAN RMA [address] [facility],[place] [address] [place] [address], [address], [place] [facility] 04/30/2024 17:09:11 04/03/20 24 Allergy Immunotherapy Injections completed DORINDA CARTER RMA [address],[place] [address], [address], [facility] - [facility] 04/03/2024 14:18:03 02/21/20 24 Allergy Immunotherapy Injections completed DUARTE MCMAHAN, RMA [address],[place] [address], [address], [place] [facility] 02/21/2024 14:26:06 01/16/20 24 Allergy Immunotherapy Injections completed DORINDA CARTER RMA [address],[place] [address], [address], [facility] - [facility] [place] 01/16/2024 13:58:23 Imaging Results None recorded. Procedure Notes None recorded. Medical Equipment None Reported. Medications Name Sig Start Date Stop Date Status Note LastModified by Organization Details LastModified Time metformin 500 mg tablet TAKE 1 TABLET BY MOUTH TWICE DAILY WITH MEALS active Not Available Not Available No t Available Augmentin 875 mg-125 mg tablet 2019 active Medicati on ID: [id number] D uration Value: 10 Prescri bed By Name: Dereck bright MD Brand Name: Augmenti n Send Method: E-Prescr ibed Sub s Allowed: subs OK Speci al Instruct ion: 1 po bid for 10 days Med icationG enericNa me: Augmenti n Not Available Not Available Not Available acetamino phen 325 mg tablet TAKE 3 TABLETS BY MOUTH EVERY 6 HOURS NEEDED FOR FEVER OR PAIN active Not Available Not Available No t Available prednisol one sodium phosphate 15 mg/5 mL (3 mg/mL) oral solution 07/26 completed Medicati on ID: [id number] D uration Value: 10 Brand Name: predniso [...] nebulizat ion 2020 active Medicati on ID: [id number] B rand Name: albutero l sulfate Send [...] mg tablet 09/13 completed Medicati on ID: [id number] D uration Value: 30 Brand Name: cetirizi ne Send Method: E-Prescr ibed Sub s Allowed: subs OK Speci al Instruct ion: TK 1 T PO QD Medic ationGen ericName : cetirizi ne Not Available Not Available Not Available azithromy vega 250 mg tablet TAKE 2 TABLETS BY MOUTH ON THE FIRST DAY THEN 1 TABLET FOR 4 ADDITION AL DAYS active Not Available Not Available No t Available nystatin 100,000 unit/gram topical ointment APPLY TOPICALL Y TWICE DAILY FOR 7 DAYS active Not Available Not Available No t Available fluconazo le 150 mg tablet TAKE 1 TABLET BY MOUTH EVERY 3 DAYS FOR 3 DOSES active Not Available Not Available No t Available hydrocort isone 1 % topical ointment 03/15 completed Medicati on ID: [id number] D uration Value: 7 Brand Name: hydrocor [...] active Not Available Not Available Not Available prednison e 20 mg tablet TAKE 1 TABLET ORALLY 2 TIMES A DAY active Not Available Not Available No t Available topiramat e 25 mg tablet TAKE 1 TABLET BY MOUTH DAILY AT BEDTIME active Not Available Not Available No t Available fexofenad ine 180 mg tablet 1 tablet by mouth 2019 active Medicati on ID: [id number] D uration Value: 30 Prescri bed By [...] single dose 09/13 completed Medicati on ID: [id number] D uration Value: 1 Brand Name: lidocain e-priloc lindanicanor coto Method: E-Prescr ibed Sub s Allowed: subs OK Speci al Instruct ion: Please bring to allergy test appoint Medicati onGeneri cName: lidocain e-priloc linda Not Available Not Available Not Available ciproflox acin 0.3 % eye drops 06/07 completed Medicati on ID: [id number] D uration Value: 7 Brand Name: ciproflo [...] t Available oseltamiv ir 75 mg capsule TAKE 1 CAPSULE BY MOUTH EVERY 12 HOURS FOR 5 DAYS active Not Available Not Available No t Available fluoxetin e 20 mg tablet active Medicati on ID: [id number] B rand Name: fluoxeti ne Send Method: E-Prescr ibed Sub s Allowed: subs OK Medic ationGen ericName : fluoxeti ne Not Available Not Available Not Available polymyxin B sulfate 10,000 unit-trim ethoprim 1 mg/mL eye drops 2020 active Medicati on ID: [id number] B rand Name: polymyxi n B sulf-tri methopri m Send Method: E-Prescr ibed Sub s Allowed: subs OK Medic ationGen ericName : polymyxi n B sulf-tri methopri m Not Available Not Available Not Available monteluka st 10 mg tablet 05/02 completed Medicati on ID: [id number] B rand Name: monteluk ast Send Method: E-Prescr ibed Sub s Allowed: subs OK Medic ationGen ericName : monteluk ast Not Available Not Available Not Available bisacodyl 5 mg tablet,de layed release TAKE 3 TABLETS BY MOUTH 1 TIME DIRECTED active Not Available Not Available No t Available azelastin e 137 mcg (0.1 %) nasal spray 2019 active Medicati on ID: [id number] D uration Value: 30 Prescri bed By [...] mg tablet 05/02 completed Medicati on ID: [id number] B rand Name: loratadi ne Send Method: E-Prescr ibed Sub s Allowed: subs OK Medic ationGen ericName : loratadi ne Not Available Not Available Not Available topiramat e 50 mg tablet TAKE 1 TABLET BY MOUTH DAILY AT BEDTIME active Not Available Not Available No t Available lactulose 10 gram/15 mL oral solution 09/13 completed Medicati on ID: [id number] D uration Value: 90 Brand Name: lactmer e Send Method: E-Prescr ibed Sub s Allowed: subs OK Speci al Instruct ion: TK 15 ML PO QD Medic ationGen ericName : lactulos e Not Available Not Available Not Available Flovent HFA 44 mcg/actua tion aerosol inhaler 09/13 completed Medicati on ID: [id number] B rand Name: Flovent HFA Send Method: E-Prescr ibed Sub s Allowed: subs OK Speci al Instruct ion: INHALE 2 PUFFS BY MOUTH TWICE DAILY. RINSE MOUTH WITH WATER AFTER USE. DO NOT SWALLOW Medicati onGeneri cName: Flovent HFA Not Available Not Available Not Available magnesium gluconate 27 mg magnesium (500 mg) tablet 07/26 completed Medicati on ID: [id number] D uration Value: 30 Brand Name: susan ritter gluconarenetta e Send Method: E-Prescr ibed Sub s Allowed: subs OK Speci al Instruct ion: TK 08/14 T PO HS Medic ationGen ericName : magnesiu m gluconat e Not Available Not Available Not Available desvenlaf axine succinate ER 50 mg tablet,ex tended release 24 hr active Not Available Not Available Not Available desvenlaf axine succinate ER 100 mg tablet,ex tended release 24 hr active Not Available Not Available Not Available Tussin 100 mg/5 mL oral liquid TAKE 10 MLS (200 MG) ORALLY EVERY 4 HOURS NEEDED FOR COUGH active Not Available Not Available No t Available [facility] with Large Mask 2020 active Medicati on ID: [id number] B rand Name: [facility] Mask Sen d Method: E-Prescr ibed Sub s Allowed: subs OK Speci al Instruct ion: USE UTD Medi cationGe nericNam e: [facility] Mask Not Available Not Available Not Available EpiPen 2-Gilbert 0.3 mg/0.3 mL injection , auto-inje ctor Inject 1 pen injector intramus cularly single dose 2023 active Not Available Not Available Not Avai lable Flonase Allergy Relief 50 mcg/actua tion nasal spray,elizabeth pension [place] 2 spray into both nostrils once a day 2023 active Medicati on ID: [id number] D uration Value: 30 Brand Name: Flonase [...] Available Not Available No t Available Vitals Date Recorded Body weight Body mass index (BMI) Body height Provider Name and Address Organization Details Last Updated DateTime 11/14/2024 467568.88 g 36.5 kg/m2 167.64 cm Kelsy Lewis [place] - [facility] 11/14/2024 16:08:18 Social History None recorded. Functional Status None recorded. Mental Status None recorded. Family History Nothing Reported. Medical History No medical history recorded. Gynecological HistoryNo gynecological history recorded. Obstetrics History GPAL:G 0 P 0 0 0 0 Past Encounters Encounter ID Performer Location Encounter Start Date Encounter Closed Date Diagnosis/Indication Diagnosis SNOMED-CT Code Diagnosis ICD10 Code Diagnosis Note [id number] RAUL BOGGSA Allergy [address] [facility],[address] [place] [address] 01/16/2024 13:32:35 01/16/2024 15:03:00 Perennial allergic rhinitis 720983836 J30.89 [id number] DUARTE MISTRY RMA Allergy [address] [facility],[address] [place] [address] 02/21/2024 14:02:18 02/21/2024 14:29:43 Perennial allergic rhinitis 316667369 J30.89 [id number] DORINDA EMMA A Allergy [address] [place] [address],[address] [place] [address] 04/03/2024 14:06:17 04/03/2024 16:27:17 Perennial allergic rhinitis 524637686 J30.89 Allergic rhinitis 733851 04 J30.89 J30.9 [id number] DORINDA EMMA A Allergy [address] [place] [address],[address] [place] [address] 04/30/2024 16:35:00 04/30/2024 17:13:51 Perennial allergic rhinitis 462621539 J30.89 [id number] [facility] [address] [facility],[address] [place] [address] 05/28/2024 15:36:06 05/28/2024 16:25:25 Perennial allergic rhinitis 604945499 J30.89 [id number] DORINDA CARTER A Allergy [address] [facility],[address] [place] [address] 06/25/2024 17:24:47 06/25/2024 17:27:37 Perennial allergic rhinitis 219684833 J30.89 [id number] DUARTE MISTRY [facility],[address] [place] [address] 07/31/2024 13:40:27 07/31/2024 13:41:30 Perennial allergic rhinitis 049676614 J30.89 [id number] DUARTE FEDE RMA Allergy 100 [facility] [place] [address] 09/04/2024 14:13:07 09/04/2024 14:14:46 Perennial allergic rhinitis 686102080 J30.89 [id number] SPIKE CESAR RN Allergy 100 [facility] 100 [place] [address] 10/01/2024 16:41:06 10/01/2024 17:08:56 Perennial allergic rhinitis 378544455 J30.89 [id number] VAN GUTIERREZ PA-C [facility] 100 [place] [address] 11/14/2024 15:57:25 11/14/2024 16:43:26 Allergic rhinitis 67526133 J30.9 [id number] [facility] Allergy 100 [facility] 100 [place] [address] 10/29/2024 15:24:43 10/29/2024 15:36:42 Perennial allergic rhinitis 094186977 J30.89 Health Concerns Section Related Observation LastModified by Organization Detai ls LastModified Time None Recorded Concern Status LastModified by Organization Details LastModified Time None Recorded Advance Directives Directive None Recorded Payers Insurance Date Sequence Insurance Name Policy Number Policy Becerra Covered Member ID Becerra Member ID Guarantor Name 11/14/2024 1 [facility] [id number] Leah Lanette Lanette Andrews [id number] Leah Andrews 11/19/2024 2 [place] [facility] Leah Zhang [id number] Leah Andrews Notes Date Note Type Note Provider Name and Address Organization Details Recorded Time 11/14/2024 text/html 19yo female presents for allergy immunotherapy follow up. Patient reports allergy symptom improvement and has not required INS or oral antihistamine. Patient completed 1 year of monthly injections and is interested in discontinuing therapy. BHASKAR CONTRERAS MD [address] [place] [address],[address], [address], [facility] - [facility] 11/15/2024 09:02:33 OBGyn Episode No OBEpisode recorded.
== END 2024-12-26 12:58 | disposition home or self-care (01) ==
LOC: HO.HMCSH 11:06
PROVIDERS: PCP Internal Medicine; Visit Provider Physician Assistant Medical
DX: Z00.00 Encounter for general adult medical examination without abnormal findings (principal); F41.9 Anxiety disorder, unspecified; E66.812 Obesity, class 2; Z68.37 Body mass index [BMI] 37.0-37.9, adult; Z71.85 Encounter for immunization safety counseling

== ENCOUNTER → 2024-12-26 11:06 | Outpatient (BNVA) | payer OTHER, SELFPAY | PROVIDERS: PCP Internal Medicine; Visit Provider Physician Assistant Medical | DX: Z00.00 Encounter for general adult medical examination without abnormal findings (principal); F41.9 Anxiety disorder, unspecified; E66.812 Obesity, class 2; Z68.37 Body mass index [BMI] 37.0-37.9, adult; Z79.84 Long term (current) use of oral hypoglycemic drugs; Z71.85 Encounter for immunization safety counseling | CPT/HCPCS: 96127 ==

== ENCOUNTER 2024-12-30 06:01 | Outpatient (REF) | payer OTHER, SELFPAY ==
[2024-12-30 07:43] LABS: Parathyroid Hormone Intact 46.7 pg/mL (8.7-77.1)
[2024-12-31 22:02] LABS: Hepatitis BE Antigen NON-REACTIVE (NON-REACTIVE)
[2024-12-31 22:59] LABS: Hepatitis BE Antibody NON-REACTIVE (NON-REACTIVE)
[2025-01-01 18:49] LABS: Rubella IgG Antibody <0.90 Index
[2025-01-01 21:33] LABS: TS Negative Control Passed; TS Panel A 1; TS Panel B 0; TS Positive Control Passed; TSpotTB Negative (Negative)
== END 2024-12-30 06:02 | disposition home or self-care (01) ==
LOC: HO.LAB 06:01
PROVIDERS: PCP Internal Medicine; Visit Provider Physician Assistant Medical
DX: Z00.00 Encounter for general adult medical examination without abnormal findings (principal); Z71.85 Encounter for immunization safety counseling
CPT/HCPCS: 36415; 83970; 86481; 86707; 86735; 86762; 86765; 87350

== ENCOUNTER → 2025-01-01 07:31 | Outpatient (BNVA) | payer SELFPAY | PROVIDERS: PCP Internal Medicine | DX: Z02.89 Encounter for other administrative examinations (principal) ==

== ENCOUNTER 2025-01-02 12:38 | Outpatient (AMB) | payer OTHER, SELFPAY ==
--- NOTE | 2025-01-02 13:31 | AM.OFFVISNUR ---
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
== END 2025-01-02 13:38 | disposition home or self-care (01) ==
LOC: HO.HMCH 12:39
PROVIDERS: PCP Internal Medicine; Visit Provider Physician Assistant Medical
DX: Z23 Encounter for immunization (principal)

== ENCOUNTER → 2025-01-02 12:38 | Outpatient (BNVA) | payer OTHER, SELFPAY | PROVIDERS: PCP Internal Medicine; Visit Provider Physician Assistant Medical | DX: Z23 Encounter for immunization (principal) | CPT/HCPCS: 90471; 90715 ==

== ENCOUNTER 2025-01-06 14:19 | Outpatient (AMB) | payer OTHER, SELFPAY ==
--- OUTSIDE RECORDS SUMMARY | 2025-01-06 14:26 | XMS_ITS | Clinical Summary ---
Author Organization [facility] Address [address] [place] [id number] Phone Care Team Providers Care Operations Officer Name Role Phone Unavailable Primary Care Provider [...] Overview (01/02/2024): 01/02/2024 (age 18yr): Followed by [facility] + - Last Specialist Visit: 11/15/2023 . Discussed BC options, dysmenorrhea [place] options. Will use ibuprofen. Was not Rx'd BC. Assessment & Plan (01/02/2024 11:29 AM EDT): 01/02/2024 (age 18yr): Followed by [facility] + Anxiety 04/24/2023 Overview (01/04/2024): 04/24/23 - Pt's anxiety has increased due to discontinuing medication and recent break-up with her boyfriend. Is having difficulty with focus at school. 05/01/23 - Pt is accepting the break-up and feels that her emotions are still there, but more manageable. She has contacted [facility] and plans to follow-up there. She did not schedule a follow-up with [facility], but will follow-up with PCP. [facility] invited her to return of needed. 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 Patient will benefit from support in managing her anxiety, accepting/ mourning recent loss, and follow-up with PCP around medication - Pt to see [facility] briefly and bridge to [facility] (pt to contact and connect). 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 Patient will benefit from support in managing her anxiety, accepting/ mourning recent loss, and follow-up with PCP around medication - Pt to see [facility] briefly and bridge to [facility] (pt to contact and connect). PLAN: Follow up with [facility] briefly and bridge to outpatient services [...] eating. 03/16/[address] done at [facility] ED 04/09/2024 (age 18yr): History consistent with [...] - Recommend ADHD kailash, gave number for [facility] , [employer] - has extra help at school - [...] gets mood swings. 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 Had stopped med and restarted 04/24/2023. 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 Currently 20 mg dose. Anxiety and depression have been alleviated significantly. . 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 Was sleeping a a lot and cried sometimes. Binge eats and weight has been fluctuating over time (see problem). Had been followed by Lucy Nieto [facility] but still having issues with insurance. - Continue fluoxetine 20 mg - Try to get counseling through school - follow up 2-3 months. Assessment & Plan (11/21/2022 4:39 PM EDT): 11/21/2022 (age 17yr):Followed by Lucy Nieto [facility] but still having issues with insurance. . 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 PLAN: Follow up with [facility] 3 weeks Patient goal is to [...] future goals. PLAN: 1. Follow up with [facility] 2 weeks 2. Patient goal is [...] future goals. PLAN: 1. Follow up with [facility] 2 weeks 2. Patient goal is [...] gets mood swings. 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 02/05/2019: Saw Dr. Hamilton's office, diagnosed with [...] specified), Rx'ed orapred and epipen, referred to aircraft electrician. 02/05/2019: Saw Dr. Hamilton's office, note in records not readable. mg and zyrtec 10 mg today. Chronic pharyngitis 06/19/2020 Overview (09/12/2021): 09/12/2021 (age 15yr 11mo): Followed by ENT for this now ([address] Detailed History and Chronology of care: Treated at [facility] for recurrent strep, never diagnosed in records [...] have excessive wax. ENT (Jackie Major) in [place]. Will monitor for recurrent pharyngitis. History: Treated at [facility] for recurrent strep, never diagnosed in records [...] Seafood allergy ruled out by Dr. Hamilton (aircraft electrician) 01/2019. History: 12/02/2018: Rash on face and lip swelling after eating seafood (type not specified), Rx'ed orapred and epipen, referred to aircraft electrician. 02/05/2019: Saw Dr. Hamilton's office, seafood allergy ruled out. Assessment & Plan (06/21/2020 11:11 AM EST): 06/21/2020 (age 14 yr 8 mo): per she reports that she was told she didn't have seafood allergy by Dr. Hamilton. Await reports. She has also seen ENT (Jackie Major) ENT in [place]. Per pt planning to get allergy shots [...] history of constipation. Reports no current concerns. Immunizations Immunization Administration Dates Next Due COVID-19 [...] Due Date Last Done Comments COVID-19 Vaccine (6 - 2023-2 5 season) [...] Additional history exists Procedures * Due to [place] [employer] law, this organization might not be sharing sensitive test results. Procedure Name Priority Date/Time Associated Diagnosis Comments CHLAMYDIA AND GONORRHEA, AMPLIFIED Routine 01/02/2024 11:39 AM EDT Encounter for screening examination for chlamydial infection from Last 3 Months or Most Recently Relevant to Health Maintenance Results * Due to [place] [employer] law, this organization might not be sharing sensitive test results. * Chlamydia and Gonorrhoea, Amplified (01/02/2024 11:39 AM EDT) C trach CHUY Negative Negative [facility] N gonorrhoeae CHUY Negative Negative [facility] Urine (Urine) 01/02/2024 11: 39 AM EDT 01/02/2024 Comment:UR Narrative [facility] - 01/04/2024 9:08 AM EDT Performed at: ??01 - [facility] [place] [address], [address], [place], [place] ??[id number] [employer]ofin[employer] Laboratory Worker: Austen Rooney MD, Phone: ??[phone] Susi Fuentes MD LAB MICROBIOLOGY - GENERAL OR DERABLES Final Result Performing Organization Address City/State/[facility] Co de Phone Number [facility] [address] [place] [address] from Last 3 Months or Most Recently Relevant to Health Maintenance Insurance [facility] [employer] [facility] [employer]
--- NOTE | 2025-01-06 14:30 | AM.OFFVISNUR ---
Intake Visit Reasons: MMR Allergies ENVIRONMENTAL Allergy (Unknown, Uncoded 12/26/24 12:57) RASH seasonal Allergy (Unknown, Uncoded 12/26/24 12:57) unknown Immunizations M-M-R II (PF) 1,000-12,500 TCID50/0.5 mL subcutaneous solution Performing Provider: Jacob Simpson MD [facility] Administered by: Vesta Bauman LPN on 01/06/25 14:30 Dose Route Admin Location Dispensed Lot Number Expiration Date [facility] Estimator Lumber 0.5 mL subcut Left Arm 0.5 mL [id number] 11/21/25 5212-3838-88 [employer] & D VIS Given Date VIS Provided VIS Publication Date 01/06/25 Single Vaccine 21 Eligibility Eligibility Date Funding Source Not [facility] Eligible 01/06/25 Private Assessment & Plan Assessment & Plan Orders: Orders MMR Immunization Today Z23 - Encounter for immunization Medications: New M-M-R II (PF) (measles,mumps,rubella vacc(PF)) 0.5 mL subcut ONCE 1 ea 0RF NS Z23 - Encounter for immunization Coding
== END 2025-01-06 14:31 | disposition home or self-care (01) ==
LOC: HO.HMCH 14:20
PROVIDERS: PCP Internal Medicine; Visit Provider Internal Medicine
DX: Z23 Encounter for immunization (principal)

== ENCOUNTER → 2025-01-06 14:19 | Outpatient (BNVA) | payer OTHER, SELFPAY | PROVIDERS: PCP Internal Medicine; Visit Provider Internal Medicine | DX: Z23 Encounter for immunization (principal) | CPT/HCPCS: 90471; 90707 ==

== ENCOUNTER 2025-02-20 13:47 | Outpatient (AMB) | payer OTHER, SELFPAY ==
--- NOTE | 2025-02-20 13:38 | A.OFFPC_ITS ---
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[employer] Development Required: No Allergies ENVIRONMENTAL Allergy (Unknown, Uncoded 02/20/25 14:01) RASH seasonal Allergy (Unknown, Uncoded 02/20/25 14:01) unknown Medication List - Last Reconciled 02/20/25 by Bharati Hill PA-C acetaminophen ER (Tylenol 8 Hour) 650 mg PO Q8H PRN albuterol sulfate 90 mcg/actuation 2 puffs inhalation Q4-6H PRN albuterol sulfate 2.5 mg inhalation Q4H PRN amoxicillin-pot clavulanate 875-125 mg 1 tab PO BID 10 days cholecalciferol (vitamin D3) 25 mcg PO DAILY epinephrine IM hydrocortisone 2.5% 1 appl topical BID-TID PRN polyethylene glycol 3350 grams PO pseudoephedrine HCl ER (Sudafed 12 Hour) 120 mg PO Q12H sennosides (senna) 8.6 mg PO BID PRN Tobacco use date assessed: 12/26/24 Dental Screening Dental Screen Date: 11/11/24 HPI Persistent headache X2 days HPI Details The patient is a 19-year-old female presenting with symptoms suggestive of a sinus infection. She reports experiencing a sore throat since , with intermittent pain and mucus production upon waking. She also notes significant nasal congestion and frequent sneezing, despite taking allergy medication, which she feels is ineffective. Additionally, the patient describes a headache that feels like a migraine, worsened by movement, and dizziness, possibly due to dehydration. She denies fever, vomiting, diarrhea, rashes, and has no appetite. The patient has a history of asthma and is concerned about taking Mucinex due to potential interactions with her asthma medications. She has previously used Sudafed for similar symptoms and is considering it again. The patient also mentions a history of vitamin D deficiency and is inquiring about continuing her vitamin D3 supplementation. Social History - Employment: Works in a [employer], potentially exposed to infectious agents. [facility] Medical History (Updated 02/20/25 @ 14:04 by Bharati Hill PA-C) Sinusitis Vaccine counseling Class 2 obesity with body mass index (BMI) of 37.0 to 37.9 in adult Annual physical exam Cervical cancer screening Vitamin D deficiency Class 2 obesity with body mass index (BMI) of 38.0 to 38.9 in adult Anemia Anxiety Joint swelling Joint pain Abnormal nipple Rash Lactose intolerance IBS (irritable bowel syndrome) Establishing care with new doctor, encounter for Leaking of urine Dysmenorrhea Asthma Surgical History No history of previous surgery Family History Mother Arthritis Father High cholesterol Hypertension Social History Housing: House Alcohol intake: never Patient Tobacco Use Status: Never used Tobacco service: No Current occupational status: employed and student Gender identity: Female Cognitive needs: No Hearing needs: No Vision needs: Yes (rx contacts/ glasses) Female Reproductive History Menstrual Age of Menarche: 11 Questionnaire PHQ-9 Over the last 2 weeks, how often have you been bothered by any of the following problems? 1. Little interest or pleasure in doing things: not at all 2. Feeling down, depressed, or hopeless: not at all 3. Trouble falling or staying asleep, or sleeping too much: not at all 4. Feeling tired or having little energy: not at all 5. Poor appetite or overeating: more than half the days 6. Feeling bad about yourself - or that you are a failure or have let yourself or your family down: not at all 7. Trouble concentrating on things, such as reading the newspaper or watching television: several days 8. Moving or speaking so slowly that other people could have noticed. Or the opposite - being so fidgety or restless that you have been moving around a lot more than usual: not at all 9. Thoughts that you would be better off or of hurting yourself in some way: not at all Total score: 3 Depression Screening Interpretation: Negative Depression Screening Done: Yes 27688 - PHQ-9 Billing: Yes Source: Developed by Drs. Dereck Rajput, Porsche Silva, Logan Saxena and colleagues, with an educational ayah from [employer]. Thrive Questionnaire Date Thrive assessed: 12/26/24 I am a: Patient What is your living situation today?: I have a steady place to live Within the past 12 months, did the food you bought not last and you didn't have the money to get more?: Never true Within the past 12 months, did you worry whether your food would run out before you got money to buy more?: Never true Do you have trouble paying for medicines?: Yes Do you have trouble getting transportation to medical appointments?: No Do you have trouble paying your heating and electricity bill?: No Do you have trouble taking care of your child, family member or friend?: No Do you have trouble with day-to-day activities such as bathing, preparing meals, shopping, managing finances, etc.?: No Are you currently unemployed and looking for a job?: No Are you interested in more education?: No Please select the resources that you would like help with: None THRIVE Score: 0 AUDIT C Alcohol Use Questionnaire (AUDIT-C) 1. How often do you have a drink containing alcohol?: Never 3. How often do you have six or more drinks on one occasion?: Never Total Score: 0 Score Reviewed/Action Taken: No CHEYENNE-7 AMB Questionnaire CHEYENNE-7 Date CHEYENNE - 7 assessed: 12/26/24 Feeling nervous, anxious, or on edge: 1 = Several days Not being able to stop or control worryin = Not at all Worrying too much about different things: 0 = Not at all Trouble relaxin = Not at all Being so restless that it is hard to sit still: 0 = Not at all Becoming easily annoyed or irritable: 0 = Not at all Feeling afraid as if something awful might happen: 0 = Not at all Total CHEYENNE-7 score (0-4 normal; 5-9 mild; 10-14 moderate; 15-21 severe): 1 Source: Developed by Drs. Dereck Rajput, Porsche Silva, Logan Saxena and colleagues, with an educational ayah from [employer]. CHEYENNE-7 Assessment Billing CHEYENNE-7 Assessment Tool: CHEYENNE-7 Assessment 93258 Review of Systems Const Details: - Respiratory: Reports nasal congestion and sneezing. Denies cough, hemoptysis, or wheezing. - Neurological: Reports headache and dizziness. Denies syncope or seizures. - Gastrointestinal: Denies nausea, vomiting, diarrhea, or abdominal pain. - Dermatological: Denies rashes or skin changes. - General: Reports sore throat and lack of appetite. Denies fever or chills. Physical exam (Primary Care) Tobacco/Smoking Status: Tobacco use Status Tobacco use date assessed 12/26/24 02/20/25 13:44 Patient Tobacco Use Status Never used Tobacco 02/20/25 13:44 PHQ-9: PHQ-9 Score PHQ-9: Total score 3 02/20/25 13:44 Depression Screening Interpretation: Negative Thrive Assessment: Date of Thrive Assessment Date Thrive assessed 12/26/24 02/20/25 13:44 Telehealth Telehealth Telehealth Platform: Telephone Location of provider rendering services: practice address Location of patient: address on file Patient Identification confirmed using: Name, : Yes Telehealth method: voice only Patient verbally consented to treatment: Yes Patient verbally consented to billing insurance company: Yes Patient informed of any privacy concerns related to visit: Yes Minutes spent on Phone/Video with Pt.: 20 Coding Level of Care Code Tele Est Pt Level 4 (35788) Complex EM visit Add On G2211 Diagnoses Sinusitis J32.9 Asthma J45.909 Vitamin D deficiency E55.9 Additional Codes CHEYENNE-7 Assessment Billing - CHEYENNE-7 Assessment Tool: CHEYENNE-7 Assessment 45070 ([id number]) PHQ-9 - 50861 - PHQ-9 Billing: Yes ([id number]) Assessment & Plan Assessment & Plan (1) Sinusitis: Code(s): J32.9 - Chronic sinusitis, unspecified Category: Medical Plan: The patient will be started on Augmentin for the treatment of sinusitis. Additionally, testing for COVID-19, influenza, and RSV will be conducted to rule out viral infections. (2) Asthma: Code(s): J45.909 - Unspecified asthma, uncomplicated Category: Medical Plan: The patient is advised to use Sudafed for nasal congestion, considering her history of asthma. (3) Vitamin D deficiency: Code(s): E55.9 - Vitamin D deficiency, unspecified Category: Medical Plan: The patient will continue her vitamin D3 supplementation with additional refills provided. Plan Plan Patient was informed and verbally consented to the use of an ambient scribe for clinic note documentation during this visit. 1. Sinusitis The patient will be started on Augmentin for the treatment of sinusitis. Additionally, testing for COVID-19, influenza, and RSV will be conducted to rule out viral infections. 2. Asthma The patient is advised to use Sudafed for nasal congestion, considering her history of asthma. 3. Vitamin D Deficiency The patient will continue her vitamin D3 supplementation with additional refills provided. I discussed with the patient the likelihood of a sinus infection and the plan to start Augmentin. We also talked about testing for COVID-19, influenza, and RSV to rule out viral infections. The patient was informed about the use of Sudafed for her nasal congestion, considering her asthma history. I confirmed the continuation of her vitamin D3 supplementation with additional refills. Orders: Orders SARS-CoV2/FLU/RSV Today R09.89 - Other specified symptoms and signs involving the circulatory and respiratory systems Medications: New pseudoephedrine HCl ER (Sudafed 12 Hour) 120 mg PO Q12H 30 tabs 1RF amoxicillin-pot clavulanate 875-125 mg 1 tab PO BID 20 tabs 0RF 10 days Refilled cholecalciferol (vitamin D3) 25 mcg PO DAILY 90 caps 3RF Patient Instructions: - Start taking Augmentin as prescribed for sinusitis. - Get tested for COVID-19, influenza, and RSV at the designated lab. - Use Sudafed for nasal congestion, considering your asthma history. - Continue taking vitamin D3 supplements as directed.
--- OUTSIDE RECORDS SUMMARY | 2025-02-20 13:49 | XMS_ITS | Clinical Summary ---
Author Organization [facility] Address [address] [place] [phone] Phone Care Team Providers Care Turfgrass Technician Name Role Phone Unavailable Primary Care Provider [...] Overview (01/02/2024): 01/02/2024 (age 18yr): Followed by [facility] + - Last Specialist Visit: 11/15/2023 . Discussed BC options, dysmenorrhea [place] options. Will use ibuprofen. Was not Rx'd BC. Assessment & Plan (01/02/2024 11:29 AM EDT): 01/02/2024 (age 18yr): Followed by [facility] + Anxiety 04/24/2023 Overview (01/04/2024): 04/24/23 - Pt's anxiety has increased due to discontinuing medication and recent break-up with her boyfriend. Is having difficulty with focus at school. 05/01/23 - Pt is accepting the break-up and feels that her emotions are still there, but more manageable. She has contacted [facility] and plans to follow-up there. She did not schedule a follow-up with [facility], but will follow-up with PCP. [facility] invited her to return of needed. 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 Patient will benefit from support in managing her anxiety, accepting/ mourning recent loss, and follow-up with PCP around medication - Pt to see [facility] briefly and bridge to [facility] (pt to contact and connect). 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 Patient will benefit from support in managing her anxiety, accepting/ mourning recent loss, and follow-up with PCP around medication - Pt to see [facility] briefly and bridge to [facility] (pt to contact and connect). PLAN: Follow up with [facility] briefly and bridge to outpatient services Patient [...] eating. 03/16/[address] done at [facility] 04/09/2024 (age 18yr): History consistent with [...] - Recommend ADHD kailash, gave number for [facility] , [place] - has extra help at school - [...] gets mood swings. 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 Had stopped med and restarted 04/24/2023. 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 Currently 20 mg dose. Anxiety and depression have been alleviated significantly. . 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 Was sleeping a a lot and cried sometimes. Binge eats and weight has been fluctuating over time (see problem). Had been followed by Lucy Nieto [facility] but still having issues with insurance. - Continue fluoxetine 20 mg - Try to get counseling through school - follow up 2-3 months. Assessment & Plan (11/21/2022 4:39 PM EDT): 11/21/2022 (age 17yr):Followed by Lucy Nieto [facility] but still having issues with insurance. . 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 PLAN: Follow up with [facility] 3 weeks Patient goal is to identify [...] future goals. PLAN: 1. Follow up with [facility] 2 weeks 2. Patient goal is to [...] future goals. PLAN: 1. Follow up with [facility] 2 weeks 2. Patient goal is to [...] gets mood swings. 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 02/05/2019: Saw Dr. Hamilton's office, diagnosed with [...] specified), Rx'ed orapred and epipen, referred to patient services specialist. 02/05/2019: Saw Dr. Hamilton's office, note in records not readable. mg and zyrtec 10 mg today. Chronic pharyngitis 06/19/2020 Overview (09/12/2021): 09/12/2021 (age 15yr 11mo): Followed by ENT for this now ([address] Detailed History and Chronology of care: Treated at [facility] for recurrent strep, never diagnosed in [...] have excessive wax. ENT (Jackie Major) in [place]. Will monitor for recurrent pharyngitis. History: Treated at [facility] for recurrent strep, never diagnosed in [...] Seafood allergy ruled out by Dr. Hamilton (patient services specialist) 01/2019. History: 12/02/2018: Rash on face and lip swelling after eating seafood (type not specified), Rx'ed orapred and epipen, referred to patient services specialist. 02/05/2019: Saw Dr. Hamilton's office, seafood allergy ruled out. Assessment & Plan (06/21/2020 11:11 AM EST): 06/21/2020 (age 14 yr 8 mo): per she reports that she was told she didn't have seafood allergy by Dr. Hamilton. Await reports. She has also seen ENT (Jackie Major) ENT in [place]. Per pt planning to get allergy shots [...] 72 07/23/2024 4:18 PM EST Temperature 37.6 C (99.6 F) 07/23/2024 4:18 PM EST Respiratory Rate - - Oxygen Saturation 99% [...] 01/11/2025 01/11/2015, 12/20/2007, 04/07/2005, Additional history exists Influenza Vaccines (#1) 2025 04/09/20 24, 05/30/2023, 05/18/2022, Additional history exists Hepatitis B Vaccines Completed [...] 015 Men B Vaccine Completed 08/23/2022, 09/12/2021 Procedures * Due to [place] [employer] law, this organization might not be sharing sensitive test results. Procedure Name Priority Date/Time Associated Diagnosis Comments CHLAMYDIA AND GONORRHEA, AMPLIFIED Routine 01/02/2024 11:39 AM EDT Encounter for screening examination for chlamydial infection from Last 3 Months or Most Recently Relevant to Health Maintenance Results * Due to [place] [employer] law, this organization might not be sharing sensitive test results. * Chlamydia and Gonorrhoea, Amplified (01/02/2024 11:39 AM EDT) C trach CHUY Negative Negative [facility] N gonorrhoeae CHUY Negative Negative [facility] Urine (Urine) 01/02/2024 11: 39 AM EDT 01/02/2024 Comment:UR Narrative [facility] - 01/04/2024 9:08 AM EDT Performed at: 01 - [facility] [address], [address], [place], [place] [id number] Special Warfare Combatant Crewman: Austen Rooney MD, Phone: [phone] Susi Fuentes MD LAB MICROBIOLOGY - GENERAL OR DERABLES Final Result Performing Organization Address City/State/[facility] Co de Phone Number [facility] [address] [place] [address] from Last 3 Months or Most Recently Relevant to Health Maintenance Insurance [facility] [employer] [facility] [employer]
--- OUTSIDE RECORDS SUMMARY | 2025-02-20 13:49 | XMS_ITS | Data Portability ---
Author Organization [place] - [facility], Allergy Address [address] [address] Assessment Encounter Date Assessment Date Assessment LastModified by Organization Details LastModified Time 07/31/2024 07/31/2024 Administered By: MICHELL Rao Use of Antihistamines: No If yes: Vial Test Change in medications: No If yes Increase in asthma symptoms If yes, inhaler use: Reaction to last injections: No If yes: Allergy Symptoms: Other: Missed 1 week Dose Notes: [email or web address] Not available 07/31/2024 13:41:14 09/04/2024 09/04/2024 Visit With: MICHELL Rao Use of Antihistamines: No If yes: Vial Test Change in medications: No If yes Increase in asthma symptoms If yes, inhaler use: Reaction to last injections: No If yes: Allergy Symptoms: Other: Missed: Dose Aware of Vial Test Yes Notes: [email or web address] Not available 09/04/2024 14:14:27 10/01/2024 10/01/2024 Visit With: Dorinda Carter Use of Antihistamines: No If yes: Vial Test Yes Change in medications: No If yes Increase in asthma symptoms If yes, inhaler use: Reaction to last injections: No If yes: Allergy Symptoms: Other: Missed: Dose Aware of Vial Test Notes: Not available 10/01/2024 17:03:20 10/29/2024 10/29/2024 Visit With: MICHELL Rao Use of Antihistamines: No If yes: Vial Test Change in medications: No If yes Increase in asthma symptoms If yes, inhaler use: Reaction to last injections: No If yes: Allergy Symptoms: Other: Missed: Dose Aware of Vial Test Notes: [email or web address] Not available 10/29/2024 15:36:12 11/14/2024 11/14/2024 Patient [...] Organization Details Recorded Time Bleeding from nose 247419882 Active 2020 Epistaxis ; Note: Date Diagnosed : 05/02/2021 3:27 PM (R04.0) Not Available [facility] hospital 4 03:09:12 History of SARS-CoV- 2 [id number] 1667818 Active 2022 Personal history of COVID-19; Note: Date Diagnosed : 3 1:53 PM (Z86.16) Not Available [facility] 4 03:09:12 Acute pharyngit is 613656681 Active 2019 Sore throat (acute) NOS; Note: Date Diagnosed : 12/16/2019 3:14 PM (J02.9) Not Available [facility] 4 03:09:11 Otalgia of left ear 9703007304 Active 2019 Otalgia, left ear; Note: Date Diagnosed : 04/26/2020 5:07 PM (H92.02) Not Available [facility] 4 03:09:11 Bilateral earache 568118375 Active 2019 Otalgia, bilateral ; Note: Date Diagnosed : 12/16/2019 3:14 PM (H92.03) Not Available [facility] 4 03:09:11 Posterior rhinorrhe a 06374513 Active 2021 Postnasal drip; Note: Date Diagnosed : 09/20/2021 2:35 PM (R09.82) Not Available Critical [facility] hospital 4 03:09:11 Allergic rhinitis 42358785 Active 2023 Allergic rhinitis: Due to other [...] to other allergen; Note: Date Diagnosed : 11:43 AM (477.8) Note: Date Diagnosed : 11:43 AM (477.8) ; Start Date : [...] 2:38 PM (477.8) ; Start Date : 3 [...] 1:25 PM (477.8) ; Start Date : Allergi c rhinitis: Due to other allergen; Note: Date Diagnosed : 2 2:32 PM (477.8) Not Not Available [facility] hospital 4 01:19:40 Impacted cerumen in left ear 13271697764 89701 Active 2019 Impacted cerumen, left ear; Note: Date Diagnosed : 04/26/2020 5:07 PM (H61.22) Not Available [facility] hospital 4 03:09:10 Acute serous otitis media of right ear 58904983961 02388 Active 2019 Acute serous otitis media, right ear; Note: Date Diagnosed : 02/20/2020 4:14 PM (H65.01) Not Available [facility] hospital 4 03:09:12 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 Procedures Surgical History Date Name Laterality Status Provider Name and Address Organization Details Recorded Time 10/30/19 25 Allergy Immunotherapy Injections completed MICHELL RAO [facility],[address], [address], [facility] - [facility] 10/29/2024 15:35:01 10/01/19 25 Allergy Immunotherapy Injections completed MICHELL BOGGS [facility],[address], [address], [facility] - [facility] 10/01/2024 17:03:03 09/04/19 25 Allergy Immunotherapy Injections completed DUARTE KORZEC, RMA [address],[place] [address], [place], [address], [facility] - [facility] 09/04/2024 14:14:21 07/31/20 24 Allergy Immunotherapy Injections completed DUARTE MCMAHAN, RMA [address],[place] [address], [place], [address], [facility] - [facility] 07/31/2024 13:41:09 06/25/20 24 Allergy Immunotherapy Injections completed RAUL BOGGS [address] [address], [place], [address], [facility] - [facility] 06/25/2024 17:25:29 05/28/20 24 Allergy Immunotherapy Injections completed SPIKE CESAR RN [facility] [place] [address] [place] [address], [address], [facility] - [facility] 05/28/2024 16:24:38 04/30/20 24 Allergy Immunotherapy Injections completed DUARTE MCMAHAN [facility] [place] [address] [place] [address], [address], [facility] - [facility] 04/30/2024 17:09:11 04/03/20 24 Allergy Immunotherapy Injections completed DORINDA CARTER [facility] [address] [facility] [place] [address] [place] [address], [address], [facility] - [facility] 04/03/2024 14:18:03 02/21/20 24 Allergy Immunotherapy Injections completed DUARTE MCMAHAN [facility] [place],[address], [address], [facility] - [facility] 02/21/2024 14:26:06 01/16/20 24 Allergy Immunotherapy Injections completed DORINDA CARTER [facility] [address] [facility] [place] [address], [place], [address], [facility] - [facility] 01/16/2024 13:58:23 Imaging Results None recorded. Procedure Notes None recorded. Medical Equipment None Reported. Medications Name Sig Start Date Stop Date Status Note LastModified by Organization Details LastModified Time metformin 500 mg tablet TAKE 1 TABLET BY MOUTH TWICE DAILY WITH MEALS active Not Available Not Available No t Available Augmentin 875 mg-125 mg tablet 2019 active Medicati on ID: [id number] D uration Value: 10 Prescri bed By [...] oral solution 07/26 completed Medicati on ID: [id number] D uration Value: 10 Brand Name: predniso [...] nebulizat ion 2020 active Medicati on ID: [id number] B rand Name: albutero l sulfate Send [...] mg tablet 09/13 completed Medicati on ID: [id number] D uration Value: 30 Brand Name: cetirizi [...] topical ointment 03/15 completed Medicati on ID: 060667 D uration Value: 7 Brand Name: hydrocor [...] by mouth 2019 active Medicati on ID: [id number] D uration Value: 30 Prescri bed By [...] single dose 09/13 completed Medicati on ID: [id number] D uration Value: 1 Brand Name: lidocain e-priloc linda Adithya coto Method: E-Prescr ibed Sub s Allowed: subs OK Speci al Instruct ion: Please bring to allergy test appoint Medicati onGeneri cName: lidocain e-priloc linda Not Available Not Available Not Available ciproflox acin 0.3 % eye drops 06/07 completed Medicati on ID: [id number] D uration Value: 7 Brand Name: ciproflo [...] 20 mg tablet active Medicati on ID: [id number] B rand Name: fluoxeti ne Send Method: E-Prescr ibed Sub s Allowed: subs OK Medic ationGen ericName : fluoxeti ne Not Available Not Available Not Available polymyxin B sulfate 10,000 unit-trim ethoprim 1 mg/mL eye drops 2020 active Medicati on ID: [id number] B rand Name: polymyxi n B sulf-tri methopri m Send Method: E-Prescr ibed Sub s Allowed: subs OK Medic ationGen ericName : polymyxi n B sulf-tri methopri m Not Available Not Available Not Available monteluka st 10 mg tablet 05/02 completed Medicati on ID: [id number] B rand Name: monteluk ast Send Method: E-Prescr ibed Sub s Allowed: subs OK Medic ationGen ericName : monteluk ast Not Available Not Available Not Available bisacodyl 5 mg tablet,de layed release TAKE 3 TABLETS BY MOUTH 1 TIME DIRECTED active Not Available Not Available No t Available azelastin e 137 mcg (0.1 %) nasal spray 2019 active Medicati on ID: [id number] D uration Value: 30 Prescri bed By [...] mg tablet 05/02 completed Medicati on ID: [id number] B rand Name: loratadi ne Send Method: E-Prescr ibed Sub s Allowed: subs OK Medic ationGen ericName : loratadi ne Not Available Not Available Not Available topiramat e 50 mg tablet TAKE 1 TABLET BY MOUTH DAILY AT BEDTIME active Not Available Not Available No t Available lactulose 10 gram/15 mL oral solution 09/13 completed Medicati on ID: [id number] D uration Value: 90 Brand Name: lactulos e Send Method: E-Prescr ibed Sub s Allowed: subs OK Speci al Instruct ion: TK 15 ML PO QD Medic ationGen ericName : lactulos e Not Available Not Available Not Available Flovent HFA 44 mcg/actua tion aerosol inhaler 09/13 completed Medicati on ID: [id number] B rand Name: Flovent HFA Send Method: E-Prescr ibed Sub s Allowed: subs OK Speci al Instruct ion: INHALE 2 PUFFS BY MOUTH TWICE DAILY. RINSE MOUTH WITH WATER AFTER USE. DO NOT SWALLOW Medicati onGeneri cName: Flovent HFA Not Available Not Available Not Available magnesium gluconate 27 mg magnesium (500 mg) tablet 07/26 completed Medicati on ID: [id number] D uration Value: 30 Brand Name: margaretguido ritter gluconat e Send Method: E-Prescr ibed Sub s [...] Not Available Not Available No t Available [facility] with Large Mask 2020 active Medicati on ID: [id number] B rand Name: Guero Bradshaw Lg Mask Sen d Method: E-Prescr ibed Sub s Allowed: subs OK Speci al Instruct ion: USE UTD Medi cationGe nericNam e: Guero Bradshaw Lg Mask Not Available Not Available Not Available EpiPen 2-Gilbert 0.3 mg/0.3 mL injection , auto-inje ctor Inject 1 pen injector intramus cularly single dose 2023 active Not Available Not Available Not Avai lable Flonase Allergy Relief 50 mcg/actua tion nasal spray,elizabeth pension Castana 2 spray into both nostrils once a day 2023 active Medicati on ID: [id number] D uration Value: 30 Brand Name: Flonase [...] Address Organization Details Last Updated DateTime 11/14/2024 743463.88 g 36.5 kg/m2 167.64 cm Kelsy Lewis [facility] 11/14/2024 16:08:18 Social History None recorded. Functional Status None recorded. Mental Status None recorded. Family History Nothing Reported. Medical History No medical history recorded. Gynecological HistoryNo gynecological history recorded. Obstetrics History GPAL:G 0 P 0 0 0 0 Past Encounters Encounter ID Performer Location Encounter Start Date Encounter Closed Date Diagnosis/Indication Diagnosis SNOMED-CT Code Diagnosis ICD10 Code Diagnosis Note [id number] MICHELL BOGGS All[facility] [address] [place],[address] [place], [place] [address] 01/16/2024 13:32:35 01/16/2024 15:03:00 Perennial allergic rhinitis 992379246 J30.89 [id number] [facility], [facility] [place] [place], [place] [address] 02/21/2024 14:02:18 02/21/2024 14:29:43 Perennial allergic rhinitis 906536019 J30.89 [id number] DORINDA CARTER A Allergy 100 [facility],[address] [place] [address] 04/03/2024 14:06:17 04/03/2024 16:27:17 Perennial allergic rhinitis 044309869 J30.89 Allergic rhinitis 057437 04 J30.89 J30.9 [id number] DORINDA CARTER A Allergy [address] [facility],[address] [place] [address] 04/30/2024 16:35:00 04/30/2024 17:13:51 Perennial allergic rhinitis 053894376 J30.89 [id number] [facility] [place],[address] [place] [address] 05/28/2024 15:36:06 05/28/2024 16:25:25 Perennial allergic rhinitis 013568612 J30.89 [id number] DORINDA CARTER A Allergy [address] [facility],[address] [place] [address] 06/25/2024 17:24:47 06/25/2024 17:27:37 Perennial allergic rhinitis 997883542 J30.89 [id number] [facility], [facility] [place],[address] [place] [address] 07/31/2024 13:40:27 07/31/2024 13:41:30 Perennial allergic rhinitis 664190878 J30.89 [id number] [facility], [facility] [place],[address] [place] [address] 09/04/2024 14:13:07 09/04/2024 14:14:46 Perennial allergic rhinitis 669535679 J30.89 [id number] SPIKE CESAR RN Allergy 100 [facility] 100 [facility] [place] [place] [address] 10/01/2024 16:41:06 10/01/2024 17:08:56 Perennial allergic rhinitis 458704693 J30.89 [id number] VAN GUTIERREZ PA-C [facility] [address] [place] [address] 11/14/2024 15:57:25 11/14/2024 16:43:26 Allergic rhinitis 13835135 J30.9 [id number] DUARTE MISTRY, [facility] Allergy [address] [facility] 100 [facility] [place] [address] 10/29/2024 15:24:43 10/29/2024 15:36:42 Perennial allergic rhinitis 181011173 J30.89 Health Concerns Section Related Observation LastModified by Organization Detai ls LastModified Time None Recorded Concern Status LastModified by Organization Details LastModified Time None Recorded Advance Directives Directive None Recorded Payers Insurance Date Sequence Insurance Name Policy Number Policy Becerra Covered Member ID Becerra Member ID Guarantor Name 11/14/2024 1 [facility] [id number] Leah Andrews [id number] Leah Andrews 11/19/2024 2 [place] [facility] Leah Zhang [id number] Leah Andrews Notes Date Note Type Note Provider Name and Address Organization Details Recorded Time 11/14/2024 text/html 19yo female presents for allergy immunotherapy follow up. Patient reports allergy symptom improvement and has not required INS or oral antihistamine. Patient completed 1 year of monthly injections and is interested in discontinuing therapy. BHASKAR CONTRERAS MD 100 [facility],[address], [address], [facility] - [facility] 11/15/2024 09:02:33 OBGyn Episode No OBEpisode recorded.
== END 2025-02-20 14:04 | disposition home or self-care (01) ==
LOC: HO.HMCSH 13:47
PROVIDERS: PCP Internal Medicine; Visit Provider Physician Assistant Medical
DX: J32.9 Chronic sinusitis, unspecified (principal); J45.909 Unspecified asthma, uncomplicated; E55.9 Vitamin D deficiency, unspecified

== ENCOUNTER → 2025-02-20 13:47 | Outpatient (BNVA) | payer OTHER, SELFPAY | PROVIDERS: PCP Internal Medicine; Visit Provider Physician Assistant Medical | DX: E55.9 Vitamin D deficiency, unspecified (principal); J45.909 Unspecified asthma, uncomplicated; J32.9 Chronic sinusitis, unspecified | CPT/HCPCS: 96127 ==

== ENCOUNTER 2025-03-12 11:40 | Outpatient (AMB) | payer OTHER, SELFPAY ==
--- NOTE | 2025-03-12 11:42 | A.OFFPC_ITS ---
Vital Signs 03/12/25 11:43 Height 5 ft 6 in Weight 239 lb BMI 38.6 BP 118/88 Respiration 16 Pulse 92 Pulse Source Pulse Oximeter Temp 98.3 F Temp Source Temporal Artery Scan Pulse Oximetry (%) 99 Oxygen Delivery Method Room Air Intake Visit Reasons: rash Track Helper Required: No Accompanied by: Self / Same As Patient Allergies ENVIRONMENTAL Allergy (Unknown, Uncoded 03/12/25 12:37) RASH seasonal Allergy (Unknown, Uncoded 03/12/25 12:37) unknown Medication List - Last Reconciled 03/12/25 by Bharati Hill PA-C acetaminophen ER (Tylenol 8 Hour) 650 mg PO Q8H PRN albuterol sulfate 90 mcg/actuation 2 puffs inhalation Q4-6H PRN albuterol sulfate 2.5 mg inhalation Q4H PRN amoxicillin-pot clavulanate 875-125 mg 1 tab PO BID 10 days cholecalciferol (vitamin D3) 25 mcg PO DAILY epinephrine IM fluconazole 150 mg PO Q3D 2 doses hydrocortisone 2.5% 1 appl topical BID-TID PRN nystatin 1 appl topical TID polyethylene glycol 3350 grams PO sennosides (senna) 8.6 mg PO BID PRN Tobacco use date assessed: 03/12/25 Dental Screening Dental Screen Date: 11/11/24 HPI rash HPI Details The patient is a 19-year-old female presenting with a rash and left ear pain. The rash began on Sunday night, initially appearing on the arms and spreading, with intermittent itching, particularly when exposed to heat. The patient has tried hydrocortisone cream without relief, and the rash does not appear to be an allergic reaction. The rash's appearance suggests a possible fungal infection, although its spread is atypical for fungal etiology. The patient also reports ear pain, specifically in the left ear, which is described as a sore above the eardrum. The patient denies recent swimming activities but notes irritation when water enters the ear during washing. [facility] Medical History (Updated 03/12/25 @ 13:06 by Bharati Hill PA-C) Ear pain Sinusitis Vaccine counseling Class 2 obesity with body mass index (BMI) of 37.0 to 37.9 in adult Annual physical exam Cervical cancer screening Vitamin D deficiency Class 2 obesity with body mass index (BMI) of 38.0 to 38.9 in adult Anemia Anxiety Joint swelling Joint pain Abnormal nipple Rash Lactose intolerance IBS (irritable bowel syndrome) Establishing care with new doctor, encounter for Leaking of urine Dysmenorrhea Asthma Surgical History No history of previous surgery Family History Mother Arthritis Father High cholesterol Hypertension Social History Housing: House Alcohol intake: never Patient Tobacco Use Status: Never used Tobacco service: No Current occupational status: employed and student Gender identity: Female Cognitive needs: No Hearing needs: No Vision needs: Yes (rx contacts/ glasses) Female Reproductive History Menstrual Age of Menarche: 11 Questionnaire PHQ-9 Over the last 2 weeks, how often have you been bothered by any of the following problems? 1. Little interest or pleasure in doing things: not at all 2. Feeling down, depressed, or hopeless: not at all 3. Trouble falling or staying asleep, or sleeping too much: not at all 4. Feeling tired or having little energy: not at all 5. Poor appetite or overeating: more than half the days 6. Feeling bad about yourself - or that you are a failure or have let yourself or your family down: not at all 7. Trouble concentrating on things, such as reading the newspaper or watching television: several days 8. Moving or speaking so slowly that other people could have noticed. Or the opposite - being so fidgety or restless that you have been moving around a lot more than usual: not at all 9. Thoughts that you would be better off or of hurting yourself in some way: not at all Total score: 3 Depression Screening Interpretation: Negative Depression Screening Done: Yes 99493 - PHQ-9 Billing: Yes Source: Developed by Drs. Dereck Rajput, Porsche Silva, Logan Saxena and colleagues, with an educational ayah from [employer]. Thrive Questionnaire Date Thrive assessed: 02/20/25 I am a: Patient What is your living situation today?: I have a steady place to live Within the past 12 months, did the food you bought not last and you didn't have the money to get more?: Never true Within the past 12 months, did you worry whether your food would run out before you got money to buy more?: Never true Do you have trouble paying for medicines?: Yes Do you have trouble getting transportation to medical appointments?: No Do you have trouble paying your heating and electricity bill?: No Do you have trouble taking care of your child, family member or friend?: No Do you have trouble with day-to-day activities such as bathing, preparing meals, shopping, managing finances, etc.?: No Are you currently unemployed and looking for a job?: No Are you interested in more education?: No Please select the resources that you would like help with: None THRIVE Score: 0 AUDIT C Alcohol Use Questionnaire (AUDIT-C) 1. How often do you have a drink containing alcohol?: Never 3. How often do you have six or more drinks on one occasion?: Never Total Score: 0 Score Reviewed/Action Taken: No CHEYENNE-7 AMB Questionnaire CHEYENNE-7 Date CHEYENNE - 7 assessed: 02/20/25 Feeling nervous, anxious, or on edge: 1 = Several days Not being able to stop or control worryin = Not at all Worrying too much about different things: 0 = Not at all Trouble relaxin = Not at all Being so restless that it is hard to sit still: 0 = Not at all Becoming easily annoyed or irritable: 0 = Not at all Feeling afraid as if something awful might happen: 0 = Not at all Total CHEYENNE-7 score (0-4 normal; 5-9 mild; 10-14 moderate; 15-21 severe): 1 Source: Developed by Drs. Dereck Rajput, Porsche Silva, Logan Saxena and colleagues, with an educational ayah from [employer]. CHEYENNE-7 Assessment Billing CHEYENNE-7 Assessment Tool: CHEYENNE-7 Assessment 03327 Review of Systems Const Details: - Dermatological: Reports rash on arms and back, intermittent itching, worsened by heat. - ENT: Reports ear pain in the left ear, denies recent swimming. All systems reviewed & are unremarkable except as noted in HPI and below Physical exam (Primary Care) Vital Signs: Last Vital Signs Temp 98.3 F 03/12/25 11:43 Pulse 92 03/12/25 11:43 Resp 16 07/31/25 11:43 BP 118/88 03/12/25 11:43 Pulse Ox 99 03/12/25 11:43 Oxygen Delivery Method Room Air 03/12/25 11:43 Care Plan Goal for BP management: <140/90 at Goal BMI result Body Mass Index 38.6 BMI Assessment/Plan discussion: High BMI High, discussed plan: lifestyle, weight reduction, dietary, physical activity and alcohol moderation Tobacco/Smoking Status: Tobacco use Status Tobacco use date assessed 03/12/25 03/12/25 11:47 Patient Tobacco Use Status Never used Tobacco 03/12/25 11:47 PHQ-9: PHQ-9 Score PHQ-9: Total score 3 03/12/25 11:47 Depression Screening Interpretation: Negative Thrive Assessment: Date of Thrive Assessment Date Thrive assessed 02/20/25 03/12/25 11:47 Const Other: Appearance: Alert. Oriented X3. No acute distress. Head: Normal external exam. Normocephalic. Atraumatic. Eyes: Pupils are equal, round, and reactive to light. Extraocular movements intact. Conjunctiva and sclera normal. Eyelids normal. Ears: External auditory canal normal. Tympanic membranes normal. Right ear slightly irritated with a sore above the eardrum, no wax noted. Mastoids are within normal limits no tenderness swelling or erythema noted. Throat: Pharynx normal. Uvula midline. Moist mucous membranes. Neck: Normal inspection. Neck supple. Full range of motion. No adenopathy. No meningeal signs. Cardiovascular: Normal heart rate and rhythm. Respiratory: No respiratory distress. Painless inspiration. Back: Full range of motion noted. Skin: Skin warm and dry. Normal skin color. Normal skin turgor. Rash noted on arms and breast, slightly itchy, possibly fungal in nature. Extremities:Extremities exhibit normal range of motion. Neuro: Oriented X 3. No motor deficit. No sensory deficit. Reflexes normal. Coding Level of Care Code Est Pt Level 4 (34137) Complex EM visit Add On G2211 Diagnoses Rash R21 Ear pain H92.09 Additional Codes CHEYENNE-7 Assessment Billing - CHEYENNE-7 Assessment Tool: CHEYENNE-7 Assessment 44424 ([id number]) PHQ-9 - 76059 - PHQ-9 Billing: Yes ([id number]) Assessment & Plan Assessment & Plan (1) Rash: Code(s): R21 - Rash and other nonspecific skin eruption Category: Medical Plan: The patient will be treated with a topical antifungal powder and oral Diflucan to address the suspected fungal rash. The patient is advised to keep the affected area dry and to use the medication consistently. (2) Ear pain: Code(s): H92.09 - Otalgia, unspecified ear Category: Medical Plan: The patient is advised to monitor the ear pain and return if symptoms persist or worsen. An antibiotic may be prescribed if the condition does not improve. Plan Plan Patient was informed and verbally consented to the use of an ambient scribe for clinic note documentation during this visit. 1. Rash The patient will be treated with a topical antifungal powder and oral Diflucan to address the suspected fungal rash. The patient is advised to keep the affected area dry and to use the medication consistently. 2. Ear Pain The patient is advised to monitor the ear pain and return if symptoms persist or worsen. An antibiotic may be prescribed if the condition does not improve. I discussed with the patient the possibility of a fungal infection causing the rash and recommended a topical antifungal treatment along with oral Diflucan. I advised the patient to keep the area dry and to use the medication consistently. For the ear pain, I suggested monitoring the symptoms and considering an antibiotic if the condition does not improve. Medications: New amoxicillin-pot clavulanate 875-125 mg 1 tab PO BID 20 tabs 0RF 10 days fluconazole 150 mg PO Q3D 2 tabs 3RF 2 doses nystatin 1 appl topical TID 30 grams 1RF Patient Instructions: - Use the prescribed antifungal powder and oral Diflucan as directed. - Keep the affected area dry and monitor for any changes. - Monitor ear pain and return if symptoms persist or worsen.
[2025-03-12 11:43] VITALS: BP 118/88; PULSE 92; RESP 16; TEMP 36.8; O2SAT 99; BMI 38.6
== END 2025-03-12 12:34 | disposition home or self-care (01) ==
LOC: HO.HMCSH 11:41
PROVIDERS: PCP Internal Medicine; Visit Provider Physician Assistant Medical
DX: R21 Rash and other nonspecific skin eruption (principal); H92.09 Otalgia, unspecified ear

== ENCOUNTER → 2025-03-12 11:40 | Outpatient (BNVA) | payer OTHER, SELFPAY | PROVIDERS: PCP Internal Medicine; Visit Provider Physician Assistant Medical | DX: R21 Rash and other nonspecific skin eruption (principal); H92.02 Otalgia, left ear | CPT/HCPCS: 96127 ==

== ENCOUNTER 2025-04-01 13:18 | Outpatient (REF) | payer OTHER, SELFPAY ==
--- OUTSIDE RECORDS SUMMARY | 2025-04-01 14:14 | XMS_ITS | Clinical Summary ---
Author Organization [facility] Address [address] [place] [phone] Phone Care Team Providers Care Sail Repairer Name Role Phone Unavailable Primary Care Provider [...] Overview (01/02/2024): 01/02/2024 (age 18yr): Followed by [facility] + - Last Specialist Visit: 11/15/2023 . Discussed BC options, dysmenorrhea [place] options. Will use ibuprofen. Was not Rx'd BC. Assessment & Plan (01/02/2024 11:29 AM EDT): 01/02/2024 (age 18yr): Followed by [facility] + Anxiety 04/24/2023 Overview (01/04/2024): 04/24/23 - Pt's anxiety has increased due to discontinuing medication and recent break-up with her boyfriend. Is having difficulty with focus at school. 05/01/23 - Pt is accepting the break-up and feels that her emotions are still there, but more manageable. She has contacted [facility] and plans to follow-up there. 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 Patient will benefit from support in managing her anxiety, accepting/ mourning recent loss, and follow-up with PCP around medication - Pt to see [facility] briefly and bridge to [facility] (pt to contact and connect). 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 Patient will benefit from support in managing her anxiety, accepting/ mourning recent loss, and follow-up with PCP around medication - Pt to see [facility] briefly and bridge to [facility] (pt to contact and connect). [...] eating. 03/16/[address] done at [facility] ED 04/09/2024 (age 18yr): History [...] - Recommend ADHD kailash, gave number for [facility] [phone], [employer] - has extra help at school - [...] gets mood swings. 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 Had stopped med and restarted 04/24/2023. 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 Currently 20 mg dose. Anxiety and depression have been alleviated significantly. . 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 Was sleeping a a lot and cried sometimes. Binge eats and weight has been fluctuating over time (see problem). Had been followed by Lucy Nieto [facility] but still having issues with insurance. - Continue fluoxetine 20 mg - Try to get counseling through school - follow up 2-3 months. Assessment & Plan (11/21/2022 4:39 PM EDT): 11/21/2022 (age 17yr):Followed by Lucy Nieto [facility] but still having issues with insurance. . 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 02/05/2019: Saw Dr. Hamilton's office, diagnosed with [...] specified), Rx'ed orapred and epipen, referred to story editor. 02/05/2019: Saw Dr. Hamilton's office, note in records not readable. mg and zyrtec 10 mg today. Chronic pharyngitis 06/19/2020 Overview (09/12/2021): 09/12/2021 (age 15yr 11mo): Followed by ENT for this now ([address] Detailed History and Chronology of care: Treated at [facility] for recurrent strep, never diagnosed in records [...] have excessive wax. ENT (Jackie Major) in [place]. Will monitor for recurrent pharyngitis. History: Treated at [facility] for recurrent strep, never diagnosed in records [...] Seafood allergy ruled out by Dr. Hamilton (story editor) 01/2019. History: 12/02/2018: Rash on face and lip swelling after eating seafood (type not specified), Rx'ed orapred and epipen, referred to story editor. 02/05/2019: Saw Dr. Hamilton's office, seafood allergy ruled out. Assessment & Plan (06/21/2020 11:11 AM EST): 06/21/2020 (age 14 yr 8 mo): per she reports that she was told she didn't have seafood allergy by Dr. Hamilton. Await reports. She has also seen ENT (Jackie Major) ENT in [place]. Per pt planning to get allergy shots [...] Barton Alive Mother Kiesha Aguilar Alive Sister lEy Marvin Alive Social History Tobacco Use Types [...] Completed 08/23/2022, 09/12/2021 Procedures * Due to [employer] law, this organization might not be sharing sensitive test results. Procedure Name Priority Date/Time Associated Diagnosis Comments CHLAMYDIA AND GONORRHEA, AMPLIFIED Routine 01/02/2024 11:39 AM EDT Encounter for screening examination for chlamydial infection from Last 3 Months or Most Recently Relevant to Health Maintenance Results * Due to [place] [employer] law, this organization might not be sharing sensitive test results. * Chlamydia and Gonorrhoea, Amplified (01/02/2024 11:39 AM EDT) C trach CHUY Negative Negative [facility] N gonorrhoeae CHUY Negative Negative [facility] Urine (Urine) 01/02/2024 11: 39 AM EDT 01/02/2024 Comment:UR Narrative [facility] - 01/04/2024 9:08 AM EDT Performed at: 01 - [facility] [address], [address], [place], [place] [id number] Pet Handler: Austen Rooney MD, Phone: [phone] Susi Fuentes MD LAB MICROBIOLOGY - GENERAL OR DERABLES Final Result Performing Organization Address City/State/[facility] Co de Phone Number [facility] [address] [place] [address] from Last 3 Months or Most Recently Relevant to Health Maintenance Insurance [facility] [employer] [facility] [employer]
== END 2025-04-01 13:19 | disposition home or self-care (01) ==
LOC: HO.LAB 13:18
PROVIDERS: PCP Internal Medicine; Visit Provider Physician Assistant Medical
DX: Z11.59 Encounter for screening for other viral diseases (principal); Z71.9 Counseling, unspecified
CPT/HCPCS: 36415; 86707; 87350

== ENCOUNTER 2025-05-29 13:09 | Outpatient (AMB) | payer OTHER, SELFPAY ==
[2025-05-29 13:12] VITALS: BP 115/73; PULSE 63; TEMP 36.7; O2SAT 98; BMI 40.3
--- NOTE | 2025-05-29 13:12 | A.OFFPC_ITS ---
Vital Signs 05/29/25 13:12 Height 5 ft 6 in Weight 250 lb BMI 40.3 BP 115/73 Blood Pressure Location Rt brachial Position Sitting Pulse 63 Pulse Source Pulse Oximeter Temp 98.0 F Temp Source Temporal Artery Scan Pulse Oximetry (%) 98 Oxygen Delivery Method Room Air Intake Visit Reasons: 6 month follow up Centrifugal Supervisor Required: No Accompanied by: Self / Same As Patient Allergies ENVIRONMENTAL Allergy (Unknown, Uncoded 05/29/25 13:30) RASH seasonal Allergy (Unknown, Uncoded 05/29/25 13:30) unknown Medication List - Last Reconciled 05/29/25 by Bharati Hill PA-C acetaminophen ER (Tylenol 8 Hour) 650 mg PO Q8H PRN albuterol sulfate 90 mcg/actuation 2 puffs inhalation Q4-6H PRN albuterol sulfate 2.5 mg inhalation Q4H PRN cholecalciferol (vitamin D3) 25 mcg PO DAILY hydrocortisone 2.5% 1 appl topical BID-TID PRN metformin ER 500 mg PO BID polyethylene glycol 3350 grams PO sennosides (senna) 8.6 mg PO BID PRN Tobacco use date assessed: 05/29/25 Dental Screening Dental Screen Date: 05/29/25 Did you have a dental visit in the last 12 months?: Yes Was dental information given to patient?: Patient has dentist HPI 6 month follow up HPI Details The patient is a 19-year-old female presenting for a six-month follow- up visit. The patient has a history of prediabetes, with a hemoglobin A1c of 5.5% noted in November, which has increased to 5.7%, confirming the diagnosis of prediabetes. She has been attempting to manage her weight through diet and exercise but reports difficulty in losing weight despite these efforts. The patient was previously on metformin, which was discontinued due to lack of efficacy in weight management. The patient also reports tinnitus, described as a ringing noise in the ear, which occurs intermittently. She has previously consulted an ENT specialist, and a hearing test was conducted, which returned normal results. The patient has a history of hypercholesterolemia, with cholesterol levels previously within the desired range but now noted to be on the higher side. She has been advised to modify her diet to manage cholesterol levels, focusing on reducing intake of red meats and increasing consumption of fish and chicken. The patient was noted to have anemia in November, which has since resolved. Social History - Exercise: The patient reports engaging in regular exercise but struggles with weight loss. - Diet: She is mindful of her diet, avoi ding red meats and focusing on healthier options like chicken and fish. [facility] Medical History (Updated 05/29/25 @ 14:30 by Bharati Hill PA-C) Tinnitus Pure hypercholesterolemia, unspecified Hyperlipidemia LDL goal <100 Prediabetes Obesity, morbid, BMI 40.0-49.9 Ear pain Sinusitis Vaccine counseling Annual physical exam Cervical cancer screening Vitamin D deficiency Anemia Anxiety Joint swelling Joint pain Abnormal nipple Rash Lactose intolerance IBS (irritable bowel syndrome) Establishing care with new doctor, encounter for Leaking of urine Dysmenorrhea Asthma Surgical History No history of previous surgery Family History Mother Arthritis Father High cholesterol Hypertension Social History Housing: House Alcohol intake: never Patient Tobacco Use Status: Never used Tobacco service: No Current occupational status: employed and student Gender identity: Female Cognitive needs: No Hearing needs: No Vision needs: Yes (rx contacts/ glasses) Female Reproductive History Menstrual Age of Menarche: 11 Questionnaire PHQ-9 Over the last 2 weeks, how often have you been bothered by any of the following problems? 1. Little interest or pleasure in doing things: not at all 2. Feeling down, depressed, or hopeless: not at all 3. Trouble falling or staying asleep, or sleeping too much: not at all 4. Feeling tired or having little energy: not at all 5. Poor appetite or overeating: more than half the days 6. Feeling bad about yourself - or that you are a failure or have let yourself or your family down: not at all 7. Trouble concentrating on things, such as reading the newspaper or watching television: several days 8. Moving or speaking so slowly that other people could have noticed. Or the op posite - being so fidgety or restless that you have been moving around a lot more than usual: not at all 9. Thoughts that you would be better off or of hurting yourself in some way: not at all Total score: 3 Depression Screening Interpretation: Negative Depression Screening Done: Yes 48700 - PHQ-9 Billing: Yes Source: Developed by Drs. Dereck Rajput, Logan Temple and colleagues, with an educational ayah from [employer]. Thrive Questionnaire Date Thrive assessed: 05/29/25 I am a: Patient What is your living situation today?: I have a steady place to live Within the past 12 months, did the food you bought not last and you didn't have the money to get more?: Never true Within the past 12 months, did you worry whether your food would run out before you got money to buy more?: Never true Do you have trouble paying for medicines?: Yes Do you have trouble getting transportation to medical appointments?: No Do you have trouble paying your heating and electricity bill?: No Do you have trouble taking care of your child, family member or friend?: No Do you have trouble with day-to-day activities such as bathing, preparing meals, shopping, managing finances, etc.?: No Are you currently unemployed and looking for a job?: No Are you interested in more education?: No Please select the resources that you would like help with: None THRIVE Score: 0 CHEYENNE-7 AMB Questionnaire CHEYENNE-7 Date CHEYENNE - 7 assessed: 05/29/25 Feeling nervous, anxious, or on edge: 1 = Several days Not being able to stop or control worryin = Not at all Worrying too much about different things: 0 = Not at all Trouble relaxin = Not at all Being so restless that it is hard to sit still: 0 = Not at all Becoming easily annoyed or irritable: 0 = Not at all Feeling afraid as if something awful might happen: 0 = Not at all Total CHEYENNE-7 score (0-4 normal; 5-9 mild; 10-14 moderate; 15-21 severe): 1 Source: Developed by Drs. Dereck Rajput, Logan Temple and colleagues, with an educational ayah from [employer]. CHEYENNE-7 Assessment Billing CHEYENNE-7 Assessment Tool: CHEYENNE-7 Assessment 79513 Review of Systems Const Details: - Endocrine: Reports difficulty losing weight despite diet and exercise efforts. - Neurological: Reports intermittent tinnitus. All systems reviewed & are unremarkable except as noted in HPI and below Physical exam (Primary Care) Vital Signs: Last Vital Signs Temp 98.0 F 05/29/25 13:12 Pulse 63 05/29/25 13:12 BP 115/73 05/29/25 13:12 Pulse Ox 98 05/29/25 13:12 Oxygen Delivery Method Room Air 05/29/25 13:12 Care Plan Goal for BP management: <140/90 at Goal BMI result Body Mass Index 40.3 BMI Assessment/Plan discussion: High BMI High, discussed plan: lifestyle, weight reduction, dietary, physical activity, alcohol moderation and other Tobacco/Smoking Status: Tobacco use Status Tobacco use date assessed 05/29/25 05/29/25 13:14 Patient Tobacco Use Status Never used Tobacco 05/29/25 13:14 PHQ-9: PHQ-9 Score PHQ-9: Total score 3 05/29/25 13:31 Depression Screening Interpretation: Negative Thrive Assessment: Date of Thrive Assessment Date Thrive assessed 05/29/25 05/29/25 13:14 Const Other: Appearance: Alert. Oriented X3. No acute distress. Head: Normal external exam. Normocephalic. Atraumatic. Eyes: Pupils are equal, round, and reactive to light. Extraocular movements i ntact. Conjunctiva and sclera normal. Eyelids normal. Throat: Pharynx normal. Uvula midline. Moist mucous membranes. Neck: Normal inspection. Neck supple. Full range of motion. Cardiovascular: Normal heart rate and rhythm. Respiratory: No respiratory distress. Painless inspiration. Back: Full range of motion noted. Skin: Skin warm and dry. Normal skin color. Extremities: Extremities exhibit normal range of motion. Office Procedures Flu Questionnaire Does the patient have a severe egg allergy?: No Does the patient have severe life threatening allergies?: No Does the patient have a fever or illness today?: No Has the patient ever had Guillain-Saranac Syndrome?: No Has the patient ever had any past reaction to a flu shot?: No Results AMB Hemoglobin A1c AMB Hemoglobin A1c 5.7 % Last Edit by Chiquita Campos CMA on 05/29/25 14:1 4 Immunizations Fluarix [id number] (PF) 45 mcg (15 mcg x 3)/0.5 mL IM syringe Performing Provider: Bharati Hill PA-C [facility] [place] [facility] Documented (not given) by: Chiquita Campos CMA on 05/29/25 13:20 Reason Not Given: Received Previously Results Reviewed Results Reviewed: - Labs: Hemoglobin A1c increased from 5.5% to 5.7%, indicating prediabetes. - Labs: Previous anemia resolved, with normal platelet count and kidney function. - Labs: Cholesterol levels noted to be on the higher side, with previous levels within the desired range. - Labs: Normal female hormone levels, including estrogen, prolactin, and progesterone. Coding Level of Care Code Est Pt Level 4 (26562) Complex EM visit Add On G2211 Diagnoses Prediabetes R73.03 Obesity, morbid, BMI 40.0-49.9 E66.01 Tinnitus H93.19 Pure hypercholesterolemia, unspecified E78.00 Hyperlipidemia LDL goal <100 E78.5 Additional Codes CHEYENNE-7 Assessment Billing - CHEYENNE-7 Assessment Tool: CHEYENNE-7 Assessment 40784 ([id number]) PHQ-9 - 91808 - PHQ-9 Billing: Yes ([id number]) Time Spent (min) 50 Assessment & Plan Assessment & Plan (1) Prediabetes: Code(s): R73.03 - Prediabetes Category: Medical Plan: The plan for managing prediabetes includes monitoring hemoglobin A1c levels and encouraging lifestyle modifications such as diet and exercise. The patient is advised to continue dietary changes and increase physical activity to help manage blood glucose levels. (2) Obesity, morbid, BMI 40.0-49.9: Code(s): E66.01 - Morbid (severe) obesity due to excess calories Category: Medical Plan: The patient is encouraged to maintain a healthy diet and regular exercise regimen to address obesity. Consideration for weight loss injections was discussed, pending insurance approval. (3) Tinnitus: Code(s): H93.19 - Tinnitus, unspecified ear Category: Medical Plan: The patient reports intermittent tinnitus, and previous ENT evaluation showed normal hearing test results. No further intervention is planned at this time unless symptoms worsen. (4) Pure hypercholesterolemia, unspecified: Code(s): E78.00 - Pure hypercholesterolemia, unspecified Category: Medical Plan: The patient is advised to modify her diet to manage cholesterol levels, focusing on reducing intake of red meats and increasing consumption of fish and chicken. Regular monitoring of cholesterol levels is recommended to assess the effectiveness of dietary changes. (5) Hyperlipidemia LDL goal <100: Code(s): E78.5 - Hyperlipidemia, unspecified Category: Medical Plan: The patient is advised to modify her diet to manage cholesterol levels, focusing on reducing intake of red meats and increasing consumption of fish and chicken. Regular monitoring of cholesterol levels is recommended to assess the effectiveness of dietary changes. Plan Plan Patient was informed and verbally consented to the use of an ambient scribe for clinic note documentation during this visit. 1. Prediabetes The plan for managing prediabetes includes monitoring hemoglobin A1c levels and encouraging lifestyle modifications such as diet and exercise. The patient is advised to continue dietary changes and increase physical activity to help manage blood glucose levels. 2. Obesity The patient is encouraged to maintain a healthy diet and regular exercise regimen to address obesity. Consideration for weight loss injections was discussed, pending insurance approval. 3. Tinnitus The patient reports intermittent tinnitus, and previous ENT evaluation showed normal hearing test results. No further intervention is planned at this time unless symptoms worsen. 4. Hypercholesterolemia The patient is advised to modify her diet to manage cholesterol levels, focusing on reducing intake of red meats and increasing consumption of fish and chicken. Regular monitoring of cholesterol levels is recommended to assess the effectiveness of dietary changes. 5. Anemia (Resolved) The patient's anemia has resolved, and no further treatment is necessary at this time. During the visit, we discussed the management of prediabetes through lifestyle modifications, including dietary changes and increased physical activity. We also talked about the potential use of weight loss injections, pending insurance approval, and the importance of monitoring cholesterol levels through dietary adjustments. The patient was advised to follow up in six months for an annual check-up, with instructions to call a week prior for fasting blood work orders. Orders: Orders Influenza [id number] Immunization Today Z23 - Encounter for immunization Testosterone, Free/Total Today Z00.00 - Encounter for general adult medical examination without abnormal findings DHEA Sulfate Today Z00.00 - Encounter for general adult medical examination without abnormal findings Dihydrotestosterone Today Z00.00 - Encounter for general adult medical examination without abnormal findings AMB Hemoglobin A1c Today Z13.9 - Encounter for screening, unspecified Medications: New tirzepatide (weight loss) (Zepbound) for 4 weeks 2.5 mg (0.5 mL) subcut QWEEK 2 mL 0RF E66.01 - Morbid (severe) obesity due to excess calories, E78.00 - Pure hypercholesterolemia, unspecified, E78.5 - Hyperlipidemia, unspecified, R73.03 - Prediabetes fexofenadine-pseudoephedrine 180-240 mg ER (Janette-D 24 Hour) 1 tab PO QAM 90 tabs 3RF seasonal allergies Discontinued metformin ER Discontinued Reason: Doctor's Order 500 mg PO BID 180 tabs 3RF Patient Instructions: - Continue with dietary changes to manage blood glucose and cholesterol levels. - Engage in regular physical activity to aid in weight management. - Follow up in six months for an annual check-up and call a week prior for fasting blood work orders.
--- OUTSIDE RECORDS SUMMARY | 2025-05-29 15:43 | XMS_ITS | Clinical Summary ---
Author Organization [facility] Address [address] [place] [address] Phone Care Team Providers Care Gathering Machine Setter Name Role Phone Unavailable Primary Care Provider [...] hours as needed for wheezing. 1 Units Active Additional Information Patient not taking.Reported on [...] Overview (01/02/2024): 01/02/2024 (age 18yr): Followed by [facility] + - Last Specialist Visit: 11/15/2023 . Discussed BC options, dysmenorrhea [place] options. Will use ibuprofen. Was not Rx'd BC. 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 Patient will benefit from support in [...] eating. 03/16/[address] done at [facility] 04/09/2024 (age 18yr): History consistent with [...] - Recommend ADHD kailash, gave number for [facility] , [employer] - has extra help at school - [...] gets mood swings. 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 Had stopped med and restarted 04/24/2023. 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 Currently 20 mg dose. Anxiety and depression have been alleviated significantly. . 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 Was sleeping a a lot and cried sometimes. Binge eats and weight has been fluctuating over time (see problem). Had been followed by Lucy Nieto [facility] but still having issues with insurance. - Continue fluoxetine 20 mg - Try to get counseling through school - follow up 2-3 months. Assessment & Plan (11/21/2022 4:39 PM EDT): 11/21/2022 (age 17yr):Followed by Lucy Nieto [facility] but still having issues with insurance. . 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 Encouraged regular meals. Still needs BH intake [...] mg 3 RF. Follow up 2-3 months (Sep 2020) 01/13/2021 Rx Flovent 44 2 P [...] She is taking her singular daily, Rx'd . She is currently sick, and thinks that [...] specified), Rx'ed orapred and epipen, referred to teacher education instructor. 02/05/2019: Saw Dr. Hamilton's office, diagnosed with [...] specified), Rx'ed orapred and epipen, referred to teacher education instructor. 02/05/2019: Saw Dr. Hamilton's office, note in records not readable. mg and zyrtec 10 mg today. Chronic pharyngitis 06/19/2020 Overview (09/12/2021): 09/12/2021 (age 15yr 11mo): Followed by ENT for this now ([address] Detailed History and Chronology of care: Treated at [facility] for recurrent strep, never diagnosed in [...] have excessive wax. ENT (Jackie Major) in [place]. Will monitor for recurrent pharyngitis. History: Treated at [facility] for recurrent strep, never diagnosed in [...] Seafood allergy ruled out by Dr. Hamilton (teacher education instructor) 01/2019. History: 12/02/2018: Rash on face and lip swelling after eating seafood (type not specified), Rx'ed orapred and epipen, referred to teacher education instructor. 02/05/2019: Saw Dr. Hamilton's office, seafood allergy ruled out. Assessment & Plan (06/21/2020 11:11 AM EST): 06/21/2020 (age 14 yr 8 mo): per she reports that she was told she didn't have seafood allergy by Dr. Hamilton. Await reports. She has also seen ENT (Jackie Major) ENT in [place]. Per pt planning to get allergy shots [...] Health Maintenance Due Date Last Done Comments DTaP,Tdap,and Td Vaccines (7 - Td or Tdap) 01/11/2025 01/11/2015, 12/20/2007, 04/07/2005, Additional history exists Influenza Vaccines (#1) 2025 04/09/20 24, 05/30/2023, 05/18/2022, Additional history exists COVID-19 Vaccine (2024-09 6 season) 2025 08/31/2023, 05/18/2022, 08/21/2021, Additional history exists Hepatitis B Vaccines Completed 03/28/2004, 2003, 2003 Pneumococcal Vaccine Completed 09/27/2004, 03/28/2004, 01/25/2004, Additional history exists HIB Vaccines Completed 04/07/2005, 03/13, 01/25/2004, Additional history exists IPV Vaccines Completed 12/20/2007, 09/13, 03/28/2004, Additional history exists MMR Vaccines Completed 12/20/2007, 09/27/2004 Varicella Vaccines Completed 12/20/2007, 09/27/2004 Hepatitis A Vaccines Completed 02/02/2011, 02/01/20 10 HPV Vaccines Completed 01/04/2018, 0608/2014, 01/11/2015 Meningococcal Vaccine Completed 06/21/2020, 015 Men B Vaccine Completed 08/23/2022, 09/12/2021 Procedures * Due to [employer] law, this organization might not be sharing sensitive test results. Procedure Name Priority Date/Time Associated Diagnosis Comments CHLAMYDIA AND GONORRHEA, AMPLIFIED Routine 01/02/2024 11:39 AM EDT Encounter for screening examination for chlamydial infection from Last 3 Months or Most Recently Relevant to Health Maintenance Results * Due to [place] [employer] law, this organization might not be sharing sensitive test results. * Chlamydia and Gonorrhoea, Amplified (01/02/2024 11:39 AM EDT) C trach CHUY Negative Negative [facility] N gonorrhoeae CHUY Negative Negative [facility] Urine (Urine) 01/02/2024 11: 39 AM EDT 01/02/2024 Comment:UR Narrative [facility] - 01/04/2024 9:08 AM EDT Performed at: 01 - [facility] [place] [address], [address], [place], [place] [id number] Grinder Needle Tip: Austen Rooney MD, Phone: [phone] Susi Fuentes MD LAB MICROBIOLOGY - GENERAL OR DERABLES Final Result [facility] [address] [place] [address] from Last 3 Months or Most Recently Relevant to Health Maintenance Insurance [address] [facility] [address] [place] [id number] [facility] [employer] [place] [address] [employer]
== END 2025-05-29 14:01 | disposition home or self-care (01) ==
LOC: HO.HMCSH 13:09
PROVIDERS: PCP Internal Medicine; Visit Provider Physician Assistant Medical
DX: R73.03 Prediabetes (principal); E66.01 Morbid (severe) obesity due to excess calories; H93.19 Tinnitus, unspecified ear; E78.00 Pure hypercholesterolemia, unspecified; E78.5 Hyperlipidemia, unspecified; Z13.9 Encounter for screening, unspecified; Z23 Encounter for immunization

== ENCOUNTER → 2025-05-29 13:09 | Outpatient (BNVA) | payer OTHER, SELFPAY | PROVIDERS: PCP Internal Medicine; Visit Provider Physician Assistant Medical | DX: R73.03 Prediabetes (principal); H93.19 Tinnitus, unspecified ear; E78.00 Pure hypercholesterolemia, unspecified; E66.01 Morbid (severe) obesity due to excess calories; Z28.89 Immunization not carried out for other reason | CPT/HCPCS: 83036; 90471; 96127 ==